=== PATIENT | female | born 1930 | race Caucasian/White ===

== ENCOUNTER 2017-03-18 21:05 | Inpatient (IN) | payer OTHER ==
--- NOTE | 2017-03-18 21:22 | PDOC ---
Attending Attestation - Resident Resident Name: Fredy Ruff
[2017-03-18 21:26] VITALS: BMI 20.7
--- NOTE | 2017-03-18 22:19 | PDOC ---
History of Present Illness - General Chief Complaint: Injury Stated Complaint: FALL Time Seen by Provider: 03/18/17 21:13 - History of Present Illness Initial Comments: 03/18/17 22:14 86F w/ hx of b/l hip and knee replacements and polyarthritis presenting after fall. Pt reports that she fell down using her rollader to walk from her bed to bathroom. She denies any dizziness, SOB, nausea, or LOC before or after fall. She states that she hit the back of her head and right knee, and reports severe pain when flexing the right leg preventing her from walking. 03/18/17 22:24 Past History - Past Medical History Allergies/Adverse Reactions: Allergies Allergy/AdvReac Type Severity Reaction Status Date / Time No Known Allergies Allergy Verified 03/18/17 21:26 Home Medications: Ambulatory Orders Calcium Polycarbophil [Fibercon] 625 mg PO BID 01/21/14 Gabapentin [Neurontin -] 400 mg PO Q8H 01/21/14 Gluc HCl/Csana/Gly-Am-Gly,Mx/C [Cosamin Ds Capsule] 1 each PO BID 01/21/14 Modafinil [Provigil] 200 mg PO BID 01/21/14 Sennosides [Senna -] 1 mg PO HS 01/21/14 Simethicone [Gas Relief] 80 mg PO QID 01/21/14 Metaxalone 1 tab PO BID 06/21/14 Hydromorphone [Dilaudid -] 1 tab PO BID PRN 07/16/16 Amlodipine Besylate 2.5 mg PO DAILY 09/24/16 Celebrex 100 mg PO BID 11/12/16 Vitamin C 500 mg PO DAILY 11/12/16 Vitamin D3 - 1 tab PO DAILY 11/12/16 Zofran 4 mg PO TID PRN 11/12/16 Acidoph/L.bulg/Bif.b/S.thermop [Yajaira-Bid Caplet] 1 cap PO BID 12/24/16 Anemia: No Asthma: No Cancer: No Cardiac Disorders: No CVA: No COPD: No CHF: No Dementia: No Diabetes: No GI Disorders: No Disorders: No HTN: Yes Hypercholesterolemia: No Liver Disease: No Seizures: No Thyroid Disease: No Comment:: 03/18/17 22:18 PMH: hemochromatosis HTN arthritis constipation 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 PSH: cholecystectomy b/l knee and hip replacements PUD vagectomy melanoma in-situ excision Allergies: NKDA Fam Hx: hemochromatosis in older brother - Surgical History Abdominal Surgery: Yes (apendectomy 05/2014) Appendectomy: No Cardiac Surgery: No Cholecystectomy: No Lung Surgery: No Neurologic Surgery: No Orthopedic Surgery: Yes (right hip replacement ./ rt knee replacement) - Immunization History Immunization Up to Date: Yes - Psycho/Social/Smoking Cessation Hx Suicidal Ideation: No Smoking History: Never smoked Have you smoked in the past 12 months: No Review of Systems - Review of Systems Comments:: 03/18/17 22:19 GENERAL: No fever, chills, night sweats HEAD, EYES, EARS, NOSE AND THROAT: No change in vision, ear pain, or sore throat CARDIOVASCULAR: No chest pain or palpitations RESPIRATORY: No cough, wheezing, or hemoptysis. GASTROINTESTINAL: No nausea, vomiting, diarrhea, constipation, or blood in the stool. GENITOURINARY: No dysuria, frequency, or urgency MUSCULOSKELETAL: + joint swelling and pain. SKIN: wet growth on right lateral ankle bandaged up ENDOCRINE: No increased thirst. No abnormal weight change NEUROLOGIC: No dizziness,no loss of consciousness *Physical Exam - Vital Signs Last Vital Signs Temp Pulse Resp BP Pulse Ox 97.8 F 75 20 151/87 96 03/18/17 21:24 03/18/17 21:24 03/18/17 21:24 03/18/17 21:24 03/18/17 21:24 - Physical Exam Comments: 03/18/17 22:22 GENERAL: Awake, alert, and fully oriented, in no acute distress HEAD: swelling on posterior head HEENT: PERRLA, EOMI, NECK: Normal ROM, supple, no lymphadenopathy, JVD, or masses HEART: Regular rate and rhythm, normal S1 and S2, no murmurs, rubs or gallops, peripheral pulses normal and equal bilaterally. LUNGS: CTAB, no wheezing, no rales ABDOMEN: Soft, nontender, nondistended, normoactive bowel sounds. No guarding, no rebound. No masses EXTREMITIES: right knee appears swollen compared to left, very tender to touch mostly on lateral side, unable to flex without severe pain. R elbow has minor abrasion. NEUROLOGICAL: Cranial nerves II through XII grossly intact. Normal speech, no focal sensorimotor deficits 03/18/17 22:26 ED Treatment Course - LABORATORY CBC & Chemistry Diagram: 03/18/17 21:59 03/18/17 21:59 - RADIOLOGY Radiology Studies Ordered: Category Date Time Status HEAD CT WITHOUT CONTRAST [CT] Stat CT Scan 03/18/17 21:55 Ordered KNEE 4 POS-RIGHT [RAD] Stat Radiology 03/18/17 21:54 Taken Medical Decision Making - Medical Decision Making 03/18/17 22:24 86F w/ hx of b/l hip and knee replacements and polyarthritis presenting after falling on head and right knee. Likely due to instability of joints. r/o cardiac causes of fall, intracranial bleeding, and right knee fracture. -head CT: shows a small hyperdensity suspicious for acute hemorrhage. -right knee XR: can't rule out fracture, so ordered knee CT -CBC: wnl -ferritin -CMP: wnl -EKG: normal sinus rhythm -CT Knee: showed distal femoral condyle fracture and hemarthrosis -spoke to Dr. Louis, will admit to monitor floor. -consult orthopedic surgery for knee fracture -touched base with neurosurgery who will see pt in morning 03/18/17 23:38 03/19/17 02:06 *DC/Admit/Observation/Transfer Diagnosis at time of Disposition: Knee fracture, right - Discharge Dispostion Condition at time of disposition: Stable Admit: Yes Decision to Admit order Date/Time: 03/19/17 02:12
[2017-03-18 22:32] LABS: BASOPHIL 0.7 % (0-2.0); EOSINOPHIL 2.2 % (0-4.5); MCH 33.9 pg (25.7-33.7); MCHC 33.8 g/dl (32.0-36.0); MEAN CELL VOLUME 100.1 fl (80-96); MEAN PLT VOLUME 8.5 fl (7.5-11.1); NEUTROPHILS 73.9 % (42.8-82.8); PLATELET COUNT 229 K/MM3 (134-434); RDW 12.3 % (11.6-15.6); WHITE BLOOD COUNT 9.9 K/mm3 (4.0-10.0)
[2017-03-18 22:45] LABS: INR 0.98 (0.82-1.09); PROTHROMBIN TIME (PATIENT) 10.8 SEC (9.98-11.88)
[2017-03-18 22:56] LABS: ALBUMIN 3.6 g/dl (3.4-5.0); ALK PHOS 62 U/L (45-117); ANION GAP 6 (8-16); BILIRUBIN,TOTAL 0.2 mg/dL (0.2-1.0); CALCIUM 8.9 mg/dL (8.5-10.1); CO2 29 mmol/L (21-32); CPK 42 IU/L (26-192); CREATININE 0.7 mg/dL (0.55-1.02); GLUCOSE,RANDOM 97 mg/dL (74-106); SGOT/AST 21 U/L (15-37); SGPT/ALT 22 U/L (12-78); TOT PROT 6.8 g/dl (6.4-8.2)
[2017-03-18 22:58] LABS: TROPONIN I < 0.02 ng/ml (0.00-0.05)
[2017-03-19] MEDS ORDERED: ACETAMINOPHEN 1000 MG/100 ML VIAL (NON FORMULARY) IVPB PRN (00:09)
[2017-03-19] MEDS ORDERED: ACETAMINOPHEN INJECTION 100 ML IVPB ONE (00:17)
[2017-03-19] MEDS ORDERED: morphine CARPU-JECT 2 MG/1 ML DISP.SYRIN IVPUSH ONE ×2 (01:13→02:01)
[2017-03-19] MEDS ORDERED: ONDANSETRON 4 MG/2 ML VIAL IVPUSH ONE (01:14)
[2017-03-19] MEDS ORDERED: morphine CARPU-JECT 4 MG/1 ML DISP.SYRIN ONE ×2 (01:18→02:11)
[2017-03-19] MEDS ORDERED: ONDANSETRON 4 MG/2 ML VIAL ONE (01:18)
[2017-03-19] MEDS ORDERED: HYDROmorphone HCL CARPU-JECT 2 MG/1 ML DISP.SYRIN IVPUSH PRN (06:31)
[2017-03-19] MEDS ORDERED: ONDANSETRON 4 MG/2 ML VIAL IVPB PRN (06:41)
--- NOTE | 2017-03-19 11:33 | CON.ORTH ---
Consult Reason for Consultation:: right distal femur fx- s/p tkr - Past Medical History ...: No - Alcohol/Substance Use Hx Alcohol Use: No - Smoking History Smoking history: Never smoked Have you smoked in the past 12 months: No Home Medications - Allergies Allergies/Adverse Reactions: Allergies Allergy/AdvReac Type Severity Reaction Status Date / Time No Known Allergies Allergy Verified 03/18/17 21:26 - Home Medications Home Medications: Ambulatory Orders Calcium Polycarbophil [Fibercon] 625 mg PO BID 01/21/14 Gabapentin [Neurontin -] 400 mg PO Q8H 01/21/14 Gluc HCl/Csana/Gly-Am-Gly,Mx/C [Cosamin Ds Capsule] 1 each PO BID 01/21/14 Modafinil [Provigil] 200 mg PO BID 01/21/14 Sennosides [Senna -] 1 mg PO HS 01/21/14 Simethicone [Gas Relief] 80 mg PO QID 01/21/14 Metaxalone 1 tab PO BID 06/21/14 Hydromorphone [Dilaudid -] 1 tab PO BID PRN 07/16/16 Amlodipine Besylate 2.5 mg PO DAILY 09/24/16 Celebrex 100 mg PO BID 11/12/16 Vitamin C 500 mg PO DAILY 11/12/16 Vitamin D3 - 1 tab PO DAILY 11/12/16 Zofran 4 mg PO TID PRN 11/12/16 Acidoph/L.bulg/Bif.b/S.thermop [Yajaira-Bid Caplet] 1 cap PO BID 12/24/16 Physical Exam for Ortho Vital Signs: Vital Signs Temperature 97.9 F 03/19/17 06:16 Pulse Rate 70 03/19/17 06:16 Respiratory Rate 18 03/19/17 10:00 Blood Pressure 119/57 03/19/17 06:16 O2 Sat by Pulse Oximetry (%) 95 03/19/17 10:00 Labs: INR, PTT INR 0.98 (0.82-1.09) 03/18/17 21:59 - Lower Extremity Knee: Yes: Right, Limited ROM, Pain, Swelling, Tenderness, Other (nvi) Imaging - Results X-ray: Report Reviewed, Image Reviewed Cat Scan: Report Reviewed, Image Reviewed Assessment/Plan 86F w/ hx of b/l hip and knee replacements s/p fall yesterday. Pt reports that she fell down using her rollader to walk from her bed to bathroom. She denies any dizziness, SOB, nausea, or LOC before or after fall. h/o right tkr [address] Kaplan. a/p- right nondisplaced periprosthetic distal femur fx Risks and benefits were d/w pt in detail No surgical intervention at the present time Knee immobilizer at all times- please check for skin breakdown daily as pt has h /o non-healing ulcers NWB right LE dvt ppx pain control will follow d/w DR. Zarate
--- NOTE | 2017-03-19 12:49 | HP ---
Admitting History and Physical - Primary Care Physician PCP: Tiburcio Zaragoza - Admission Chief Complaint: Right knee pain. Fall, head trauma History of Present Illness: Pt is a resident of [facility], walking in her room yesterday with walker, turned and lost her footing and fell; she hit her head. Pt was c/o of significant pain in her right knee, not able to stand or walk. Pt was sent to ER where was found to ICB and fracture of the right knee. Pt was admitted to monitor bed. History Source: Patient - Past Medical History [employer]: Yes: CVA ...: No Dermatology: Yes: Other (right and left leg ulcers) - Advance Directives Advance Directives: Yes: Health Care Proxy, DNR, MOLST - Smoking History Smoking history: Never smoked Have you smoked in the past 12 months: No - Alcohol/Substance Use Hx Alcohol Use: No Home Medications - Allergies Allergies/Adverse Reactions: Allergies Allergy/AdvReac Type Severity Reaction Status Date / Time No Known Allergies Allergy Verified 03/18/17 21:26 - Home Medications Home Medications: Ambulatory Orders Calcium Polycarbophil [Fibercon] 625 mg PO BID 01/21/14 Gabapentin [Neurontin -] 400 mg PO Q8H 01/21/14 Gluc HCl/Csana/Gly-Am-Gly,Mx/C [Cosamin Ds Capsule] 1 each PO BID 01/21/14 Modafinil [Provigil] 200 mg PO BID 01/21/14 Sennosides [Senna -] 1 mg PO HS 01/21/14 Simethicone [Gas Relief] 80 mg PO QID 01/21/14 Metaxalone 1 tab PO BID 06/21/14 Hydromorphone [Dilaudid -] 1 tab PO BID PRN 07/16/16 Amlodipine Besylate 2.5 mg PO DAILY 09/24/16 Celebrex 100 mg PO BID 11/12/16 Vitamin C 500 mg PO DAILY 11/12/16 Vitamin D3 - 1 tab PO DAILY 11/12/16 Zofran 4 mg PO TID PRN 11/12/16 Acidoph/L.bulg/Bif.b/S.thermop [Yajaira-Bid Caplet] 1 cap PO BID 12/24/16 Review of Systems - Review of Systems Constitutional: denies: Chills, Fever Eyes: denies: Blurred Vision, Double Vision HENT: denies: Difficult Swallowing, Epistaxis, Hearing Loss, Throat Pain Neck: denies: Pain on Movement, Stiffness Cardiovascular: denies: Chest Pain, Edema, Palpitations Respiratory: denies: Cough, SOB, Wheezing Gastrointestinal: denies: Abdominal Pain, Constipation, Diarrhea Genitourinary: denies: Burning, Discharge, Frequency Musculoskeletal: reports: Other (right knee pain bilat shoulder pain (old)). denies: Back Pain Neurological: denies: Change in LOC, Change in Speech, Confusion, Dizziness, Headache, Weakness Endocrine: denies: Excessive Sweating, Intolerance to Cold Hematology/Lymphatic: denies: Easily Bruised, Excessive Bleeding Psychiatric: denies: Anxiety, Depression Physical Examination Vital Signs: Vital Signs Temperature 97.9 F 03/19/17 06:16 Pulse Rate 70 03/19/17 06:16 Respiratory Rate 18 03/19/17 10:00 Blood Pressure 119/57 03/19/17 06:16 O2 Sat by Pulse Oximetry (%) 95 03/19/17 10:00 Constitutional: Yes: No Distress, Calm Eyes: Yes: Conjunctiva Clear, PERRL HENT: Yes: Normocephalic. No: Epistaxis, Rhinnorhea Neck: Yes: Trachea Midline. No: Lymphadenopathy Cardiovascular: Yes: Regular Rate and Rhythm, S1, S2 Respiratory: Yes: Regular, CTA Bilaterally. No: Rales Gastrointestinal: Yes: Normal Bowel Sounds, Soft. No: Palpable Mass, Tenderness ...Rectal Exam: Yes: Deferred Renal/: No: CVA Tenderness - Left, CVA Tenderness - Right Breast(s): Yes: Other (deferred) Musculoskeletal: Yes: Other (right knee swallon, with) Edema: No Neurological: Yes: Alert, Oriented, Cran Nerves II-XII Intact Labs: reviewed Imaging - Results Cat Scan: Report Reviewed Problem List - Problems (1) Knee fracture, right Code(s): [id number] - (2) ICB (intracranial bleed) Code(s): I62.9 - NONTRAUMATIC INTRACRANIAL HEMORRHAGE, UNSPECIFIED (3) CVA (cerebral vascular accident) Code(s): I63.9 - CEREBRAL INFARCTION, UNSPECIFIED (4) Bilateral leg ulcer Code(s): L97.919 - NON-PRS CHRONIC ULC UNSP PRT OF R LOW LEG W UNSP SEVERITY L97.929 - NON-PRS CHRONIC ULC UNSP PRT OF L LOW LEG W UNSP SEVERITY Assessment/Plan Neuro SX consult Ortho consult NPO untill clear by surgeons IVF Repeate labs Repeate Head CT scan
[2017-03-19] MEDS: SODIUM CHLORIDE 1,000 ML IV SCH ×2 (13:30→21:00)
[2017-03-19] MEDS: HYDROmorphone HCL CARPU-JECT 2 MG/1 ML DISP.SYRIN IVPUSH PRN ×2 (14:24→21:48)
[2017-03-19 14:44] LABS: MCH 33.5 pg (25.7-33.7); MCHC 33.5 g/dl (32.0-36.0); MEAN CELL VOLUME 100.2 fl (80-96); MEAN PLT VOLUME 7.9 fl (7.5-11.1); PLATELET COUNT 171 K/MM3 (134-434); RDW 11.9 % (11.6-15.6); WHITE BLOOD COUNT 7.7 K/mm3 (4.0-10.0)
--- NOTE | 2017-03-19 14:55 | CONSULT ---
Consult - text type - Consultation Consultation Note: Asked to see this 86 year old female who had a fall yesterday [facility]. Patient struck her head. Aside from Orthopaedic injury to Right lower extremity, patient is at her Neurological baseline and was bright and alert upon my examination. Head CT with focal hyperdenisity in the region of the Right Caudate head. Repeat CT does not demonstrate significant change/progression. At this point, I do not feel that any acute Neurosurgical intervention is indicated. Patient may resume normal diet and does not require additional imaging from Neurosurgery standpoint.
[2017-03-19 15:12] LABS: ALBUMIN 3.2 g/dl (3.4-5.0); ANION GAP 8 (8-16); BILIRUBIN,TOTAL 0.5 mg/dL (0.2-1.0); CALCIUM 8.4 mg/dL (8.5-10.1); CO2 31 mmol/L (21-32); CREATININE 0.6 mg/dL (0.55-1.02); GLUCOSE,RANDOM 100 mg/dL (74-106); SGOT/AST 19 U/L (15-37); SGPT/ALT 17 U/L (12-78); TOT PROT 6.2 g/dl (6.4-8.2)
[2017-03-19 15:13] LABS: ALK PHOS 69 U/L (45-117)
[2017-03-19] MEDS: amLODIPine BESYLATE 2.5 MG TABLET (FP) PO SCH (15:24)
[2017-03-19] MEDS: SIMETHICONE 80 MG TAB.CHEW (FP) PO SCH ×4 (15:24→21:51)
[2017-03-19] MEDS: GABAPENTIN 400 MG CAPSULE (FP) PO SCH ×2 (15:24→21:51)
[2017-03-19] MEDS: GENTAMICIN SO4 0.1% TOP CREAM 15 GM/TUBE TP SCH (17:23)
[2017-03-19] MEDS: BACITRACIN 15 GM TUBE TOPICAL OINTMENT TP SCH (17:24)
[2017-03-19] MEDS: SENNOSIDES 8.6MG TABLET (FP) PO SCH (21:51)
[2017-03-19] MEDS: CELECOXIB 100 MG CAPSULE PO SCH (21:51)
[2017-03-19] MEDS ORDERED: METAXALONE PO SCH (22:00)
[2017-03-19] MEDS ORDERED: CALCIUM POLYCARBOPHIL 625 MG PO SCH (22:00)
[2017-03-19] MEDS ORDERED: MODAFINIL 200 MG PO SCH (22:00)
[2017-03-19] MEDS ORDERED: ACETAMINOPHEN 325 MG TABLET (FP) PO PRN (22:00)
[2017-03-20] MEDS: GABAPENTIN 400 MG CAPSULE (FP) PO SCH ×3 (06:16→21:42)
[2017-03-20] MEDS: HYDROmorphone HCL CARPU-JECT 2 MG/1 ML DISP.SYRIN IVPUSH PRN ×3 (06:16→18:37)
[2017-03-20 06:31] LABS: MCH 33.8 pg (25.7-33.7); MCHC 33.3 g/dl (32.0-36.0); MEAN CELL VOLUME 101.5 fl (80-96); MEAN PLT VOLUME 8.4 fl (7.5-11.1); PLATELET COUNT 165 K/MM3 (134-434); RDW 11.9 % (11.6-15.6); WHITE BLOOD COUNT 8.3 K/mm3 (4.0-10.0)
[2017-03-20 07:19] LABS: ALBUMIN 2.7 g/dl (3.4-5.0); ALK PHOS 56 U/L (45-117); ANION GAP 7 (8-16); BILIRUBIN,TOTAL 0.5 mg/dL (0.2-1.0); CALCIUM 8.1 mg/dL (8.5-10.1); CO2 28 mmol/L (21-32); CREATININE 0.7 mg/dL (0.55-1.02); GLUCOSE,RANDOM 86 mg/dL (74-106); SGOT/AST 15 U/L (15-37); SGPT/ALT 15 U/L (12-78); TOT PROT 5.2 g/dl (6.4-8.2)
--- NOTE | 2017-03-20 08:18 | EKG ---
Test Reason : Blood Pressure : / mmHG Vent. Rate : 069 BPM Atrial Rate : 069 BPM P-R Int : 136 ms QRS Dur : 094 ms QT Int : 394 ms P-R-T Axes : 023 -29 030 degrees QTc Int : 422 ms NORMAL SINUS RHYTHM VOLTAGE CRITERIA FOR LEFT VENTRICULAR HYPERTROPHY ABNORMAL ECG NO PREVIOUS ECGS AVAILABLE Confirmed by JANA SILVA MD ([id number]) on 03/20/2017 8:18:26 AM Referred By: Confirmed By:JANA SILVA MD
[2017-03-20] MEDS: ASCORBIC ACID 500 MG TABLET (FP) PO SCH (10:47)
[2017-03-20] MEDS: amLODIPine BESYLATE 2.5 MG TABLET (FP) PO SCH (10:47)
[2017-03-20] MEDS: CELECOXIB 100 MG CAPSULE PO SCH ×2 (10:47→21:43)
[2017-03-20] MEDS: SIMETHICONE 80 MG TAB.CHEW (FP) PO SCH ×4 (10:47→21:42)
--- NOTE | 2017-03-20 13:27 | PN ---
Progress Note, Physician History of Present Illness: Pt w/o motor or sensory deficit in UE/ LE/ face. Pt w/o fever, chills, SOB, cough, abd pain, N, V, Diarrhea, sore throat - Current Medication List Current Medications: Active Medications Acetaminophen (Tylenol -) 650 mg PO Q6H PRN PRN Reason: FEVER OR PAIN Last Admin: 03/19/17 22:04 Dose: 650 mg Amlodipine Besylate (Norvasc -) 2.5 mg PO DAILY [facility] Last Admin: 03/20/17 10:47 Dose: 2.5 mg Ascorbic Acid (Vitamin C -) 500 mg PO DAILY [facility] Last Admin: 03/20/17 10:47 Dose: 500 mg Bacitracin (Bacitracin -) 1 applic TP DAILY [facility] Last Admin: 03/19/17 17:24 Dose: 1 applic Celecoxib (Celebrex -) 100 mg PO BID [facility] Last Admin: 03/20/17 10:47 Dose: 100 mg Gabapentin (Neurontin -) 400 mg PO Q8H [facility] Last Admin: 03/20/17 06:16 Dose: 400 mg Gentamicin Sulfate (Garamycin 0.1% Cream -) 1 applic TP DAILY [facility] Last Admin: 03/19/17 17:23 Dose: 1 applic Hydromorphone HCl (Dilaudid Injection -) 4 mg IVPUSH Q6H PRN PRN Reason: PAIN Last Admin: 03/20/17 12:22 Dose: 4 mg Sodium Chloride (Normal Saline -) 1,000 mls @ 100 mls/hr IV ASDIR [facility] Last Admin: 03/19/17 21:00 Dose: 100 mls/hr Ondansetron HCl (Zofran Injection) 4 mg IVPB Q8H PRN PRN Reason: NAUSEA AND/OR VOMITING Senna (Senna -) 2 tab PO HS [facility] Last Admin: 03/19/17 21:51 Dose: 2 tab Simethicone (Mylicon -) 80 mg PO QID [facility] Last Admin: 03/20/17 10:47 Dose: 80 mg - Objective Vital Signs: Vital Signs Temperature 98.1 F 03/20/17 10:00 Pulse Rate 68 03/20/17 10:00 Respiratory Rate 18 03/20/17 10:00 Blood Pressure 102/53 03/20/17 10:00 O2 Sat by Pulse Oximetry (%) 97 03/20/17 10:00 Constitutional: Yes: No Distress, Calm Cardiovascular: Yes: Regular Rate and Rhythm, S1, S2 Respiratory: Yes: Regular, CTA Bilaterally. No: Rales Gastrointestinal: Yes: Normal Bowel Sounds, Soft. No: Palpable Mass, Tenderness Edema: No Integumentary: Yes: Rash Neurological: Yes: Alert, Oriented Labs: CBC, BMP 03/20/17 05:15 03/20/17 05:15 INR, PTT INR 0.98 (0.82-1.09) 03/18/17 21:59 Problem List - Problems (1) Knee fracture, right Code(s): [id number] - (2) ICB (intracranial bleed) Code(s): I62.9 - NONTRAUMATIC INTRACRANIAL HEMORRHAGE, UNSPECIFIED (3) CVA (cerebral vascular accident) Code(s): I63.9 - CEREBRAL INFARCTION, UNSPECIFIED (4) Bilateral leg ulcer Code(s): L97.919 - NON-PRS CHRONIC ULC UNSP PRT OF R LOW LEG W UNSP SEVERITY L97.929 - NON-PRS CHRONIC ULC UNSP PRT OF L LOW LEG W UNSP SEVERITY Assessment/Plan Neuro SX consult appreciated (for ICB medical treatment) Ortho consult appreciated (conservative management) Repeate labs PT Monitor BCX
[2017-03-20] MEDS: SODIUM CHLORIDE 1,000 ML IV SCH (14:39)
[2017-03-20] MEDS: GENTAMICIN SO4 0.1% TOP CREAM 15 GM/TUBE TP SCH (14:39)
[2017-03-20] MEDS: BACITRACIN 15 GM TUBE TOPICAL OINTMENT TP SCH (14:39)
[2017-03-20] MEDS: SENNOSIDES 8.6MG TABLET (FP) PO SCH (21:42)
[2017-03-21] MEDS: HYDROmorphone HCL CARPU-JECT 2 MG/1 ML DISP.SYRIN IVPUSH PRN (01:06)
[2017-03-21] MEDS: GABAPENTIN 400 MG CAPSULE (FP) PO SCH ×3 (06:10→21:29)
[2017-03-21 06:45] LABS: MCHC 33.4 g/dl (32.0-36.0); MEAN CELL VOLUME 101.9 fl (80-96); MEAN PLT VOLUME 8.6 fl (7.5-11.1); PLATELET COUNT 159 K/MM3 (134-434); RDW 12.3 % (11.6-15.6)
[2017-03-21 07:00] LABS: ANION GAP 7 (8-16); CALCIUM 7.7 mg/dL (8.5-10.1); CO2 25 mmol/L (21-32); CREATININE 0.6 mg/dL (0.55-1.02); GLUCOSE,RANDOM 88 mg/dL (74-106)
--- NOTE | 2017-03-21 07:18 | PN ---
Progress Note (short form) - Note Progress Note: Ortho Pt seen and examined s/p right nondisplaced MFC fx knee immobilizer intact, no signs of skin breakdown, decr swelling, decr ttp calf soft, nt, nvi a/p keep immobilizer in place please check for skin breakdown NWB dvt ppx pain control d/w Dr. Zarate
[2017-03-21] MEDS: GENTAMICIN SO4 0.1% TOP CREAM 15 GM/TUBE TP SCH (10:37)
[2017-03-21] MEDS: amLODIPine BESYLATE 2.5 MG TABLET (FP) PO SCH (10:37)
[2017-03-21] MEDS: SIMETHICONE 80 MG TAB.CHEW (FP) PO SCH ×4 (10:37→21:29)
[2017-03-21] MEDS: BACITRACIN 15 GM TUBE TOPICAL OINTMENT TP SCH (10:37)
[2017-03-21] MEDS: ASCORBIC ACID 500 MG TABLET (FP) PO SCH (10:37)
[2017-03-21] MEDS: CELECOXIB 100 MG CAPSULE PO SCH ×2 (10:38→21:29)
[2017-03-21] MEDS: SODIUM CHLORIDE 1,000 ML IV SCH (13:11)
[2017-03-21] MEDS: HEPARIN NA (PORCINE) 5,000 UNITS/ML 1ML VIAL SQ SCH (13:14)
[2017-03-21 18:46] LABS: BASOPHIL 0.5 % (0-2.0); EOSINOPHIL 1.8 % (0-4.5); MCH 34.3 pg (25.7-33.7); MCHC 33.8 g/dl (32.0-36.0); MEAN CELL VOLUME 101.5 fl (80-96); MEAN PLT VOLUME 8.7 fl (7.5-11.1); PLATELET COUNT 160 K/MM3 (134-434); RDW 12.2 % (11.6-15.6); WHITE BLOOD COUNT 9.5 K/mm3 (4.0-10.0)
--- NOTE | 2017-03-21 19:24 | CONSULT ---
Consult - Past Medical History [employer]: Yes: CVA ...: No Dermatology: Yes: Other (right and left leg ulcers) - Alcohol/Substance Use Hx Alcohol Use: No - Smoking History Smoking history: Never smoked Have you smoked in the past 12 months: No Home Medications - Allergies Allergies/Adverse Reactions: Allergies Allergy/AdvReac Type Severity Reaction Status Date / Time No Known Allergies Allergy Verified 03/18/17 21:26 - Home Medications Home Medications: Ambulatory Orders Calcium Polycarbophil [Fibercon] 625 mg PO BID 01/21/14 Gabapentin [Neurontin -] 400 mg PO Q8H 01/21/14 Gluc HCl/Csana/Gly-Am-Gly,Mx/C [Cosamin Ds Capsule] 1 each PO BID 01/21/14 Modafinil [Provigil] 200 mg PO BID 01/21/14 Sennosides [Senna -] 1 mg PO HS 01/21/14 Simethicone [Gas Relief] 80 mg PO QID 01/21/14 Metaxalone 1 tab PO BID 06/21/14 Hydromorphone [Dilaudid -] 1 tab PO BID PRN 07/16/16 Amlodipine Besylate 2.5 mg PO DAILY 09/24/16 Celebrex 100 mg PO BID 11/12/16 Vitamin C 500 mg PO DAILY 11/12/16 Vitamin D3 - 1 tab PO DAILY 11/12/16 Zofran 4 mg PO TID PRN 11/12/16 Acidoph/L.bulg/Bif.b/S.thermop [Yajaira-Bid Caplet] 1 cap PO BID 12/24/16 Physical Exam Vital Signs: Vital Signs Temperature 99.5 F 03/21/17 18:00 Pulse Rate 95 H 03/21/17 18:00 Respiratory Rate 18 03/21/17 18:00 Blood Pressure 127/54 03/21/17 18:00 O2 Sat by Pulse Oximetry (%) 100 03/21/17 10:26 Labs: CBC, BMP 03/21/17 18:00 03/21/17 05:15 Assessment/Plan VAscular Surgery 86F w/ hx of b/l hip and knee replacements and polyarthritis presenting after fall. Pt reports that she fell down using her rollader to walk from her bed to bathroom. She denies any dizziness, SOB, nausea, or LOC before or after fall. She states that she hit the back of her head and right knee, and reports severe pain when flexing the right leg preventing her from walking. 03/18/17 22:24 Past History - Past Medical History Allergies/Adverse Reactions: Allergies Allergy/AdvReac Type Severity Reaction Status Date / Time No Known Allergies Allergy Verified 03/18/17 21:26 Home Medications: Ambulatory Orders Calcium Polycarbophil [Fibercon] 625 mg PO BID 01/21/14 Gabapentin [Neurontin -] 400 mg PO Q8H 01/21/14 Gluc HCl/Csana/Gly-Am-Gly,Mx/C [Cosamin Ds Capsule] 1 each PO BID 01/21/14 Modafinil [Provigil] 200 mg PO BID 01/21/14 Sennosides [Senna -] 1 mg PO HS 01/21/14 Simethicone [Gas Relief] 80 mg PO QID 01/21/14 Metaxalone 1 tab PO BID 06/21/14 Hydromorphone [Dilaudid -] 1 tab PO BID PRN 07/16/16 Amlodipine Besylate 2.5 mg PO DAILY 09/24/16 Celebrex 100 mg PO BID 11/12/16 Vitamin C 500 mg PO DAILY 11/12/16 Vitamin D3 - 1 tab PO DAILY 11/12/16 Zofran 4 mg PO TID PRN 11/12/16 Acidoph/L.bulg/Bif.b/S.thermop [Yajaira-Bid Caplet] 1 cap PO BID 12/24/16 PE Head - NC/At Lung - CTA Heart - RRR abd - soft,nt,nd ext - left leg wound clean, pink, granulation. Wound on left leg -- recently diagnosed by dermatology to be skin cancer and needs to be removed as per pt. A/P Left lower ext wound . 1. gentamycin daily to wound. 2. Wound on left leg- found to be skin cancer. Needs to be removed by derm. Palmer Tracy DO
[2017-03-21] MEDS: SENNOSIDES 8.6MG TABLET (FP) PO SCH (21:45)
--- NOTE | 2017-03-21 23:30 | PN ---
Progress Note, Physician History of Present Illness: Pt w/o motor or sensory deficit in UE/ LE/ face. Pt w/o fever, chills, sore throat, SOB, cough, abd pain, N, V, dysuria Pt with diarrhea - Current Medication List Current Medications: Active Medications Acetaminophen (Tylenol -) 650 mg PO Q6H PRN PRN Reason: FEVER OR PAIN Last Admin: 03/19/17 22:04 Dose: 650 mg Amlodipine Besylate (Norvasc -) 2.5 mg PO DAILY ON LICENSE OF [facility] Last Admin: 03/21/17 10:37 Dose: 2.5 mg Ascorbic Acid (Vitamin C -) 500 mg PO DAILY ON [facility] OF [facility] Last Admin: 03/21/17 10:37 Dose: 500 mg Bacitracin (Bacitracin -) 1 applic TP DAILY ON [facility] Last Admin: 03/21/17 10:37 Dose: 1 applic Celecoxib (Celebrex -) 100 mg PO BID ON [facility] OF [facility] Last Admin: 03/21/17 21:29 Dose: 100 mg Gabapentin (Neurontin -) 400 mg PO Q8H ON [facility] OF [facility] Last Admin: 03/21/17 21:29 Dose: 400 mg Gentamicin Sulfate (Garamycin 0.1% Cream -) 1 applic TP DAILY [facility] Last Admin: 03/21/17 10:37 Dose: 1 applic Heparin Sodium (Porcine) (Heparin -) 5,000 unit SQ BID ON [facility] OF [facility] Last Admin: 03/21/17 13:14 Dose: 5,000 unit Hydromorphone HCl (Dilaudid Injection -) 2 mg IVPUSH Q4H PRN PRN Reason: PAIN Last Admin: 03/21/17 01:06 Dose: 2 mg Sodium Chloride (Normal Saline -) 1,000 mls @ 100 mls/hr IV ASDIR ON [facility] OF [facility] Last Admin: 03/21/17 13:11 Dose: 100 mls/hr Ondansetron HCl (Zofran Injection) 4 mg IVPB Q8H PRN PRN Reason: NAUSEA AND/OR VOMITING Senna (Senna -) 2 tab PO HS ON [facility] OF [facility] Last Admin: 03/21/17 21:45 Dose: Not Given Simethicone (Mylicon -) 80 mg PO QID ON [facility] OF [facility] Last Admin: 03/21/17 21:29 Dose: 80 mg - Objective Vital Signs: Vital Signs Temperature 99.5 F 03/21/17 18:00 Pulse Rate 95 H 03/21/17 18:00 Respiratory Rate 18 03/21/17 18:00 Blood Pressure 127/54 03/21/17 18:00 O2 Sat by Pulse Oximetry (%) 100 03/21/17 10:26 Constitutional: Yes: No Distress, Calm Cardiovascular: Yes: Regular Rate and Rhythm, S1, S2 Respiratory: Yes: Regular, CTA Bilaterally, Rales Gastrointestinal: Yes: Normal Bowel Sounds, Soft Edema: No Neurological: Yes: Alert, Oriented Labs: CBC, BMP 03/21/17 18:00 03/21/17 05:15 INR, PTT INR 0.98 (0.82-1.09) 03/18/17 21:59 AM WBC of 12 Problem List - Problems (1) Knee fracture, right Code(s): [id number] - (2) ICB (intracranial bleed) Code(s): I62.9 - NONTRAUMATIC INTRACRANIAL HEMORRHAGE, UNSPECIFIED (3) CVA (cerebral vascular accident) Code(s): I63.9 - CEREBRAL INFARCTION, UNSPECIFIED (4) Bilateral leg ulcer Code(s): L97.919 - NON-PRS CHRONIC ULC UNSP PRT OF R LOW LEG W UNSP SEVERITY L97.929 - NON-PRS CHRONIC ULC UNSP PRT OF L LOW LEG W UNSP SEVERITY (5) Leukocytosis Code(s): D72.829 - ELEVATED WHITE BLOOD CELL COUNT, UNSPECIFIED (6) Diarrhea Code(s): R19.7 - DIARRHEA, UNSPECIFIED Assessment/Plan Neuro SX consult appreciated (for ICB medical treatment) Ortho consult appreciated (conservative management) Repeated CBC shows noraml WBC Send stool for C diff PT Monitor BCX
[2017-03-22] MEDS: GABAPENTIN 400 MG CAPSULE (FP) PO SCH ×3 (05:47→21:05)
[2017-03-22 06:35] LABS: MCH 34.2 pg (25.7-33.7); MEAN CELL VOLUME 100.3 fl (80-96); MEAN PLT VOLUME 8.7 fl (7.5-11.1); PLATELET COUNT 179 K/MM3 (134-434); RDW 11.9 % (11.6-15.6); WHITE BLOOD COUNT 8.9 K/mm3 (4.0-10.0)
[2017-03-22] MEDS: HYDROmorphone HCL CARPU-JECT 2 MG/1 ML DISP.SYRIN IVPUSH PRN ×3 (06:43→18:24)
--- NOTE | 2017-03-22 09:10 | PN ---
Progress Note (short form) - Note Progress Note: Ortho Pt seen and examined s/p right nondisplaced MFC fx knee immobilizer intact, no signs of skin breakdown, decr swelling, decr ttp calf soft, nt, nvi a/p keep immobilizer in place please check for skin breakdown PT eval NWB dvt ppx pain control d/w Dr. Beck
[2017-03-22] MEDS: SIMETHICONE 80 MG TAB.CHEW (FP) PO SCH ×4 (10:28→21:05)
[2017-03-22] MEDS: ASCORBIC ACID 500 MG TABLET (FP) PO SCH (10:28)
[2017-03-22] MEDS: amLODIPine BESYLATE 2.5 MG TABLET (FP) PO SCH (10:28)
[2017-03-22] MEDS: CELECOXIB 100 MG CAPSULE PO SCH ×2 (10:29→21:43)
[2017-03-22] MEDS: BACITRACIN 15 GM TUBE TOPICAL OINTMENT TP SCH (10:29)
[2017-03-22] MEDS: HEPARIN NA (PORCINE) 5,000 UNITS/ML 1ML VIAL SQ SCH ×2 (10:29→21:04)
[2017-03-22] MEDS: GENTAMICIN SO4 0.1% TOP CREAM 15 GM/TUBE TP SCH (11:00)
[2017-03-22] MEDS: SODIUM CHLORIDE 1,000 ML IV SCH (13:11)
[2017-03-22] MEDS ORDERED: PT OWN MED DRAWER 7, Y5N ONE (20:59)
[2017-03-22] MEDS: SENNOSIDES 8.6MG TABLET (FP) PO SCH (21:05)
--- NOTE | 2017-03-22 22:52 | PN ---
Progress Note, Physician History of Present Illness: Pt w/o motor or sensory deficit in UE/ LE/ face. Pt w/o fever, chills, sore throat, SOB, cough, abd pain, N, V, dysuria Pt w/o diarrhea - Current Medication List Current Medications: Active Medications Acetaminophen (Tylenol -) 650 mg PO Q6H PRN PRN Reason: FEVER OR PAIN Last Admin: 03/19/17 22:04 Dose: 650 mg Amlodipine Besylate (Norvasc -) 2.5 mg PO DAILY [facility] Last Admin: 03/22/17 10:28 Dose: 2.5 mg Ascorbic Acid (Vitamin C -) 500 mg PO DAILY [facility] Last Admin: 03/22/17 10:28 Dose: 500 mg Bacitracin (Bacitracin -) 1 applic TP DAILY [facility] Last Admin: 03/22/17 10:29 Dose: 1 applic Celecoxib (Celebrex -) 100 mg PO BID [facility] Last Admin: 03/22/17 21:43 Dose: 100 mg Gabapentin (Neurontin -) 400 mg PO Q8H [facility] Last Admin: 03/22/17 21:05 Dose: 400 mg Gentamicin Sulfate (Garamycin 0.1% Cream -) 1 applic TP DAILY [facility] Last Admin: 03/22/17 11:00 Dose: 1 applic Heparin Sodium (Porcine) (Heparin -) 5,000 unit SQ BID [facility] Last Admin: 03/22/17 21:04 Dose: 5,000 unit Hydromorphone HCl (Dilaudid Injection -) 2 mg IVPUSH Q3H PRN PRN Reason: PAIN Last Admin: 03/22/17 18:24 Dose: 2 mg Ondansetron HCl (Zofran Injection) 4 mg IVPB Q8H PRN PRN Reason: NAUSEA AND/OR VOMITING Senna (Senna -) 2 tab PO HS [facility] Last Admin: 03/22/17 21:05 Dose: 2 tab Simethicone (Mylicon -) 80 mg PO QID [facility] Last Admin: 03/22/17 21:05 Dose: 80 mg - Objective Vital Signs: Vital Signs Temperature 98.7 F 03/22/17 21:47 Pulse Rate 85 03/22/17 21:47 Respiratory Rate 18 03/22/17 21:47 Blood Pressure 151/68 03/22/17 21:47 O2 Sat by Pulse Oximetry (%) 95 03/22/17 09:00 Constitutional: Yes: No Distress, Calm Cardiovascular: Yes: Regular Rate and Rhythm, S1, S2 Respiratory: Yes: Regular, CTA Bilaterally. No: Rales Gastrointestinal: Yes: Normal Bowel Sounds, Soft. No: Tenderness Edema: No Labs: CBC, BMP 03/22/17 05:15 03/21/17 05:15 INR, PTT INR 0.98 (0.82-1.09) 03/18/17 21:59 Problem List - Problems (1) Knee fracture, right Code(s): IBG8069 - (2) ICB (intracranial bleed) Code(s): I62.9 - NONTRAUMATIC INTRACRANIAL HEMORRHAGE, UNSPECIFIED (3) CVA (cerebral vascular accident) Code(s): I63.9 - CEREBRAL INFARCTION, UNSPECIFIED (4) Bilateral leg ulcer Code(s): L97.919 - NON-PRS CHRONIC ULC UNSP PRT OF R LOW LEG W UNSP SEVERITY L97.929 - NON-PRS CHRONIC ULC UNSP PRT OF L LOW LEG W UNSP SEVERITY (5) Leukocytosis Code(s): D72.829 - ELEVATED WHITE BLOOD CELL COUNT, UNSPECIFIED (6) Diarrhea Code(s): R19.7 - DIARRHEA, UNSPECIFIED Assessment/Plan Neuro SX consult appreciated (recommended medical treatment); pt can start SQ Heparin for DVT prophylasis Ortho consult appreciated (conservative management) Pt with Leukocytosis yesterday, this AM WBC is w/i NL; to monitor PT evaluation reviewed Monitor BCX
[2017-03-23] MEDS: GABAPENTIN 400 MG CAPSULE (FP) PO SCH ×3 (05:46→21:30)
[2017-03-23 06:56] LABS: MCH 33.2 pg (25.7-33.7); MCHC 33.2 g/dl (32.0-36.0); MEAN CELL VOLUME 99.9 fl (80-96); MEAN PLT VOLUME 8.4 fl (7.5-11.1); PLATELET COUNT 220 K/MM3 (134-434); RDW 12.1 % (11.6-15.6)
[2017-03-23 07:26] LABS: ANION GAP 10 (8-16); CALCIUM 8.3 mg/dL (8.5-10.1); CO2 29 mmol/L (21-32); CREATININE 0.5 mg/dL (0.55-1.02); GLUCOSE,RANDOM 104 mg/dL (74-106)
[2017-03-23] MEDS ORDERED: PT OWN MED DRAWER 7, Y5N ONE ×2 (08:07→21:36)
[2017-03-23] MEDS: BACITRACIN 15 GM TUBE TOPICAL OINTMENT TP SCH (09:38)
[2017-03-23] MEDS: GENTAMICIN SO4 0.1% TOP CREAM 15 GM/TUBE TP SCH (09:39)
[2017-03-23] MEDS: HEPARIN NA (PORCINE) 5,000 UNITS/ML 1ML VIAL SQ SCH ×2 (09:40→21:31)
[2017-03-23] MEDS: ASCORBIC ACID 500 MG TABLET (FP) PO SCH (09:41)
[2017-03-23] MEDS: SIMETHICONE 80 MG TAB.CHEW (FP) PO SCH ×4 (09:41→21:30)
[2017-03-23] MEDS: amLODIPine BESYLATE 2.5 MG TABLET (FP) PO SCH (09:41)
[2017-03-23] MEDS ORDERED: POTASSIUM CHLORIDE ORAL LIQUID 20 MEQ/15 ML PO ONE (12:02)
--- NOTE | 2017-03-23 12:04 | PN ---
Progress Note, Physician History of Present Illness: Pt w/o motor or sensory deficit in UE/ LE/ face. Pt w/o fever, chills, sore throat, SOB, cough, abd pain, N, V, diarrhea, dysuria - Current Medication List Current Medications: Active Medications Acetaminophen (Tylenol -) 650 mg PO Q6H PRN PRN Reason: FEVER OR PAIN Last Admin: 03/19/17 22:04 Dose: 650 mg Amlodipine Besylate (Norvasc -) 2.5 mg PO DAILY [facility] Last Admin: 03/23/17 09:41 Dose: 2.5 mg Ascorbic Acid (Vitamin C -) 500 mg PO DAILY [facility] Last Admin: 03/23/17 09:41 Dose: 500 mg Bacitracin (Bacitracin -) 1 applic TP DAILY [facility] Last Admin: 03/23/17 09:38 Dose: 1 applic Celecoxib (Celebrex -) 100 mg PO BID [facility] Last Admin: 03/22/17 21:43 Dose: 100 mg Gabapentin (Neurontin -) 400 mg PO Q8H [facility] Last Admin: 03/23/17 05:46 Dose: 400 mg Gentamicin Sulfate (Garamycin 0.1% Cream -) 1 applic TP DAILY [facility] Last Admin: 03/23/17 09:39 Dose: 1 applic Heparin Sodium (Porcine) (Heparin -) 5,000 unit SQ BID [facility] Last Admin: 03/23/17 09:40 Dose: 5,000 unit Hydromorphone HCl (Dilaudid -) 2 mg PO Q4H [facility] Hydromorphone HCl (Dilaudid -) 2 mg PO Q4H PRN PRN Reason: PAIN Ondansetron HCl (Zofran Injection) 4 mg IVPB Q8H PRN PRN Reason: NAUSEA AND/OR VOMITING Potassium Chloride (Potassium Chloride Oral Liquid) 40 meq PO ONCE ONE Stop: 03/23/17 12:03 Senna (Senna -) 2 tab PO HS [facility] Last Admin: 03/22/17 21:05 Dose: 2 tab Simethicone (Mylicon -) 80 mg PO QID [facility] Last Admin: 03/23/17 09:41 Dose: 80 mg - Objective Vital Signs: Vital Signs Temperature 98.2 F 03/23/17 05:43 Pulse Rate 85 03/23/17 05:43 Respiratory Rate 16 03/23/17 05:43 Blood Pressure 170/87 03/23/17 05:43 O2 Sat by Pulse Oximetry (%) 95 03/22/17 21:00 Constitutional: Yes: No Distress, Calm Cardiovascular: Yes: Regular Rate and Rhythm, S1, S2 Respiratory: Yes: Regular, CTA Bilaterally, Rales Gastrointestinal: Yes: Normal Bowel Sounds, Soft. No: Tenderness Edema: No Neurological: Yes: Alert, Oriented Labs: CBC, BMP 03/23/17 05:20 03/23/17 05:20 INR, PTT INR 0.98 (0.82-1.09) 03/18/17 21:59 Problem List - Problems (1) Knee fracture, right Code(s): [id number] - (2) ICB (intracranial bleed) Code(s): I62.9 - NONTRAUMATIC INTRACRANIAL HEMORRHAGE, UNSPECIFIED (3) CVA (cerebral vascular accident) Code(s): I63.9 - CEREBRAL INFARCTION, UNSPECIFIED (4) Bilateral leg ulcer Code(s): L97.919 - NON-PRS CHRONIC ULC UNSP PRT OF R LOW LEG W UNSP SEVERITY L97.929 - NON-PRS CHRONIC ULC UNSP PRT OF L LOW LEG W UNSP SEVERITY (5) Leukocytosis Code(s): D72.829 - ELEVATED WHITE BLOOD CELL COUNT, UNSPECIFIED (6) Diarrhea Code(s): R19.7 - DIARRHEA, UNSPECIFIED Assessment/Plan Neuro SX consult appreciated (recommended medical treatment); pt can start SQ Heparin for DVT prophylasis Ortho consult appreciated (conservative management) PT evaluation Replete K To change Dilaudid to PO Monitor BCX
[2017-03-23 14:04] LABS: MAGNESIUM 1.9 mg/dL (1.8-2.4)
[2017-03-23] MEDS: CELECOXIB 100 MG CAPSULE PO SCH ×2 (17:30→21:37)
[2017-03-23] MEDS: SENNOSIDES 8.6MG TABLET (FP) PO SCH (21:31)
[2017-03-23 21:47] LABS: ANION GAP 6 (8-16); CALCIUM 8.2 mg/dL (8.5-10.1); CO2 31 mmol/L (21-32); CREATININE 0.4 mg/dL (0.55-1.02); GLUCOSE,RANDOM 98 mg/dL (74-106)
[2017-03-24] MEDS: GABAPENTIN 400 MG CAPSULE (FP) PO SCH ×2 (06:14→14:08)
[2017-03-24 06:59] LABS: ANION GAP 7 (8-16); CALCIUM 8.3 mg/dL (8.5-10.1); CO2 33 mmol/L (21-32); CREATININE 0.5 mg/dL (0.55-1.02); GLUCOSE,RANDOM 99 mg/dL (74-106)
[2017-03-24] MEDS: BACITRACIN 15 GM TUBE TOPICAL OINTMENT TP SCH (10:05)
[2017-03-24] MEDS: amLODIPine BESYLATE 2.5 MG TABLET (FP) PO SCH (10:05)
[2017-03-24] MEDS: CELECOXIB 100 MG CAPSULE PO SCH (10:05)
[2017-03-24] MEDS: ASCORBIC ACID 500 MG TABLET (FP) PO SCH (10:05)
[2017-03-24] MEDS: SIMETHICONE 80 MG TAB.CHEW (FP) PO SCH ×2 (10:05→14:08)
[2017-03-24] MEDS: GENTAMICIN SO4 0.1% TOP CREAM 15 GM/TUBE TP SCH (10:06)
[2017-03-24] MEDS: HEPARIN NA (PORCINE) 5,000 UNITS/ML 1ML VIAL SQ SCH (10:06)
--- NOTE | 2017-03-24 11:54 | DS ---
Physical Examination Vital Signs: Vital Signs Temperature 97.6 F 03/24/17 10:00 Pulse Rate 92 H 03/24/17 10:00 Respiratory Rate 19 03/24/17 10:00 Blood Pressure 127/69 03/24/17 10:00 O2 Sat by Pulse Oximetry (%) 95 03/24/17 09:00 Findings/Remarks: Pt w/o fever, chill, SOB, CP, abd pain, N, V. Pt c/o left 5-th toe pain Constitutional: Yes: No Distress, Calm Cardiovascular: Yes: Regular Rate and Rhythm, S1, S2 Respiratory: Yes: Regular, CTA Bilaterally. No: Rales Gastrointestinal: Yes: Normal Bowel Sounds, Soft. No: Tenderness Edema: No Neurological: Yes: Alert, Oriented Labs: CBC, BMP 03/23/17 05:20 03/24/17 05:15 Discharge Summary Reason For Visit: KNEE FRACTURE ACUTE Current Active Problems Bilateral leg ulcer (Acute) CVA (cerebral vascular accident) (Acute) Diarrhea (Acute) ICB (intracranial bleed) (Acute) Knee fracture, right (Acute) Leukocytosis (Acute) Procedures: Principal: Head CT scan (X 2). Leg CT scan Hospital Course: Pt is a resident of [facility], using a walker for ambulation, turned and fell (per pt her leg gave up on her); pt hit her head. Pt was transfered to ER, lee ann Head CT scan, positive for small periventricular white matter hyperdensity c /w hemorrhage; Pt also had right leg CT scan c/w fracture of right lateral femoral condyle. Pt was seen by Neuro SX (Dr. Melia Whitney), repeated Head CT scan showed stable hemorrhage; decision was made to treat pt medically. Pt was seen by Ortho ( Dr. Lent. Bill Hernández), no surgery needed, immobilizer was ordered, no weight bearing for 6 to 8 weeks. Pt with hypokalemia, corrected with supplementation and increased PO intake. Pt to be DC'ed to Rehab, with Ortho f/ u. Condition: Stable - Instructions Diet, Activity, Other Instructions: resume diet PT and OT NO weight bearing on right leg for 6 to 8 weeks ( to f/u with ORTHO in 5 weeks) Referrals: Tiburcio Zaragoza MD [Staff Physician] - Lent,Kyle E, MD [Staff Physician] - (in 5 weeks) - Home Medications Comprehensive Discharge Medication List: Ambulatory Orders This might NOT be accurate Calcium Polycarbophil [Fibercon] 625 mg PO BID 01/21/14 Gabapentin [Neurontin -] 400 mg PO Q8H 01/21/14 Gluc HCl/Csana/Gly-Am-Gly,Mx/C [Cosamin Ds Capsule] 1 each PO BID 01/21/14 Modafinil [Provigil] 200 mg PO BID 01/21/14 Sennosides [Senna -] 1 mg PO HS 01/21/14 Simethicone [Gas Relief] 80 mg PO QID 01/21/14 Metaxalone 1 tab PO BID 06/21/14 Hydromorphone [Dilaudid -] 1 tab PO BID PRN 07/16/16 Amlodipine Besylate 2.5 mg PO DAILY 09/24/16 Celebrex 100 mg PO BID 11/12/16 Vitamin C 500 mg PO DAILY 11/12/16 Vitamin D3 - 1 tab PO DAILY 11/12/16 Zofran 4 mg PO TID PRN 11/12/16 Acidoph/L.bulg/Bif.b/S.thermop [Yajaira-Bid Caplet] 1 cap PO BID 12/24/16
[2017-03-24 15:21] VITALS: BP 147/69; PULSE 97; TEMP 98.5
== END 2017-03-24 17:12 | DRG 964 ==
LOC: JER 21:05 → JERBED 03-19 02:20 → J2W 03-19 03:34
PROVIDERS: ADMIT Specialist; ATTEND Specialist
PROC: 2W3QXYZ Immobilization of Right Lower Leg using Other Device (ICD-10-PCS; principal; 2017-03-19)
DX: S06.300A Unspecified focal traumatic brain injury without loss of consciousness, initial encounter (principal); S72.414A Nondisplaced unspecified condyle fracture of lower end of right femur, initial encounter for closed fracture; E87.1 Hypo-osmolality and hyponatremia; L97.821 Non-pressure chronic ulcer of other part of left lower leg limited to breakdown of skin; L97.811 Non-pressure chronic ulcer of other part of right lower leg limited to breakdown of skin; S50.311A Abrasion of right elbow, initial encounter; W01.0XXA Fall on same level from slipping, tripping and stumbling without subsequent striking against object, initial encounter; Y93.89 Activity, other specified; Y92.122 Bedroom in nursing home as the place of occurrence of the external cause; Y99.8 Other external cause status; Z96.653 Presence of artificial knee joint, bilateral; I10 Essential (primary) hypertension; Z86.73 Personal history of transient ischemic attack (TIA), and cerebral infarction without residual deficits; I87.8 Other specified disorders of veins; Z66 Do not resuscitate; M13.0 Polyarthritis, unspecified; R19.7 Diarrhea, unspecified; D72.829 Elevated white blood cell count, unspecified
CPT/HCPCS: 36415; 70450-TC; 71010-TC; 73564-TC-RT; 73630-TC-LT; 73700-TC-RT; 80048; 80053; 82728; 83735; 84484; 85025; 85027; 85610; 87040; 93005; 93010; 97116-GP; 97161-GP; 99283-25; J1644

== ENCOUNTER 2017-08-29 13:16 | Inpatient (IN) | payer OTHER ==
[2017-08-29 13:34] VITALS: BMI 22.6
--- NOTE | 2017-08-29 14:44 | PDOC ---
History of Present Illness <Kristian De Anda - Last Filed: 08/29/17 15:58> - General History Source: Patient - History of Present Illness Initial Comments: 08/29/17 15:01 Patient is a 87 y.o. female with a PMH of HTN and Hemachromatosis who presents to our ED this afternoon at the behest of Dr. Tracy for a non-healing RLE wound. Patient states the wound appeared 1 month previous and she was initially using an Unna boot. As per staff at patient's NH and confirmed by patient's PCP, Dr. Zaragoza, patient has been on PO vancomycin with minimal healing. Patient c/o pain, however denies any subjective fevers, chills and c/ o significant RLE pain and states she has been ambulating with significant discomfort. NKDA PMD: Dr. 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) Cardiac Disorders: No CVA: No COPD: No CHF: No Dementia: No Diabetes: No GI Disorders: No Disorders: No HTN: Yes Hypercholesterolemia: No Liver Disease: No Seizures: No Thyroid Disease: No - Surgical History Abdominal Surgery: Yes (appendectomy 05/2014) Appendectomy: Yes Cardiac Surgery: No Cholecystectomy: Yes Lung Surgery: No Neurologic Surgery: No Orthopedic Surgery: Yes (bilateral hip knee replacement) - Immunization History Immunization Up to Date: Yes - Suicide/Smoking/Psychosocial Hx Smoking History: Never smoked Have you smoked in the past 12 months: No Information on smoking cessation initiated: No Hx Alcohol Use: No Drug/Substance Use Hx: No Substance Use Type: None Hx Substance Use Treatment: No <Sheila Addison - Last Filed: 08/29/17 18:38> - Past Medical History Allergies/Adverse Reactions: Allergies Allergy/AdvReac Type Severity Reaction Status Date / Time No Known Allergies Allergy Verified 08/29/17 13:26 Home Medications: Ambulatory Orders Gabapentin [Neurontin -] 400 mg PO Q8H 01/21/14 Sennosides [Senna -] 1 mg PO HS 01/21/14 Simethicone [Gas Relief] 80 mg PO QID 01/21/14 Acetaminophen [Tylenol] 650 mg PO TID 08/29/17 Amlodipine Besylate [Norvasc -] 2.5 mg PO DAILY 08/29/17 Ascorbate Calcium [Vitamin C] 500 mg PO DAILY 08/29/17 Bacitracin - [Bacitracin Topical Ointment -] 1 applic TP DAILY 08/29/17 Calcium Polycarbophil [Fiber Laxative] 625 mg PO HS 08/29/17 Celecoxib [Celebrex] 100 mg PO BID 08/29/17 Cholecalciferol (Vitamin D3) [Vitamin D3] 1,000 unit PO DAILY 08/29/17 Collagenase Clostridium Hist. [Santyl] 1 applic TP DAILY 08/29/17 Cyanocobalamin (Vitamin B-12) [Vitamin B-12] 1,000 mcg PO DAILY 08/29/17 Docusate Liquid [Colace Liquid -] 300 mg PO HS 08/29/17 Heparin Sodium,Porcine/Pf [Heparin Sod 5,000 Unit/ 0.5 ml] 5,000 unit SQ BID Hydromorphone [Dilaudid -] 4 mg PO Q4H 08/29/17 Lactobacillus Rhamnosus GG [Culturelle] 2 each PO DAILY 08/29/17 Multivitamins [Tab-A-Vit -] 1 tab PO DAILY 08/29/17 Ondansetron [Zofran -] 4 mg PO TID 08/29/17 Ranitidine HCl 150 mg PO DAILY 08/29/17 Vit B Comp/C/Folic/Iron/Vit E [Vitamin B Complex Tablet] 1 each PO DAILY Review of Systems - Review of Systems Constitutional: No: Chills, Fever HEENTM: No: Blurred Vision, Double Vision Respiratory: No: Cough, Shortness of Breath ABD/GI: No: Constipated, Nausea, Vomiting : No: Burning, Dysuria All Other Systems: Reviewed and Negative <Sheila Addison - Last Filed: 08/29/17 18:38> *Physical Exam - Vital Signs Last Vital Signs Temp Pulse Resp BP Pulse Ox 98.9 F 94 H 17 113/47 100 08/29/17 13:26 08/29/17 13:26 08/29/17 13:26 08/29/17 13:26 08/29/17 13:26 <Kristian De Anda - Last Filed: 08/29/17 15:58> - Vital Signs Last Vital Signs Temp Pulse Resp BP Pulse Ox 98.9 F 94 H 17 113/47 100 08/29/17 13:26 08/29/17 13:26 08/29/17 13:26 08/29/17 13:26 08/29/17 13:26 - Physical Exam General Appearance: Yes: Nourished, Thin Respiratory/Chest: positive: Lungs Clear, Normal Breath Sounds Cardiovascular: positive: S1, S2 Vascular Pulses: Dorsalis-Pedis (R): 2+, Doralis-Pedis (L): 2+ Gastrointestinal/Abdominal: positive: Normal Bowel Sounds, Soft Extremity: positive: Normal Capillary Refill, Normal Inspection, Other (RLE: 3x2 and 1x1 ulcers on the on the R dorsum of foot; LLE: 7x5cm non-healing flesh wound behind left calf; 2+ DP pulses intact b/l) Neurologic: positive: Fully Oriented, Alert <Sheila Addison - Last Filed: 08/29/17 18:38> ED Treatment Course - Additional Consults Time Called: 15:40 (First call. Awaiting call back.) Consult/PCP: Dr. Tiburcio Zaragoza <Kristian De Anda - Last Filed: 08/29/17 15:58> - LABORATORY CBC & Chemistry Diagram: 08/29/17 16:10 08/29/17 16:50 <Sheila Addison - Last Filed: 08/29/17 18:38> Medical Decision Making - Medical Decision Making 08/29/17 18:19 Patient is a 87 y.o. female who presents to our ED at the behest of Dr. Tracy for admission 2/2 to poor healing RLE wound. On PE patient is hemodynamically stable. Will order CBC/CMP, CXR and EKG in preparation for admission. Broad spectrum coverage Vanco/Pip Tazo. Case d/w Dr. Andrade Martin ([place]) and patient's PCP, Dr. Zaragoza. Patient to be admitted to inpatient medicine for IV antibiotics. Pain control with Morphine (patient states she is not taking Dilaudid as listed in her [place] med list, confirmed with [place]). Will continue monitor while in ED. <Sheila Addison - Last Filed: 08/29/17 18:38> *DC/Admit/Observation/Transfer - Attestations Scribe Attestion: 08/29/17 15:59 Documentation prepared by Kristian De Anda, acting as lpn or medical assistant for Philippe Bates MD <Kristian De Anda - Last Filed: 08/29/17 15:58> - Discharge Dispostion Admit: Yes <Sheila Addison - Last Filed: 08/29/17 18:38> Diagnosis at time of Disposition: Wound abscess - Discharge Dispostion Condition at time of disposition: Fair - Referrals Referrals: Tiburcio Zaragoza MD [Primary Care Provider] - - Patient Instructions - Post Discharge Activity
[2017-08-29] MEDS ORDERED: PIPERACILLIN/TAZOB 2.25 GM/50 ML PREMIX BAG IVPB ONE (15:03)
[2017-08-29] MEDS ORDERED: VANCOMYCIN 1,000 MG in DEXTROSE 5%-WATER - 500 ML IVPB ONE (15:15)
[2017-08-29] MEDS ORDERED: PIPERACILLIN/TAZOB 2.25 GM 2.25 GM/50 ML BAG IVPB ONE (15:15)
[2017-08-29] MEDS ORDERED: morphine CARPU-JECT 2 MG/1 ML DISP.SYRIN IVPUSH ONE ×2 (15:41→18:43)
--- NOTE | 2017-08-29 16:20 | PDOC ---
Attending Attestation - Resident Resident Name: Sheila Addison - ED Attending Attestation I have performed the following: I have examined & evaluated the patient, The case was reviewed & discussed with the resident, I agree w/resident's findings & plan, Exceptions are as noted <Philippe Bates - Last Filed: 08/29/17 16:20> - HPI HPI: 08/29/17 16:20 The patient is a 87 year old female, with a significant past medical history of skin cancer, hypertension, b/l knee replacements, and polyarthritis, who presents to the emergency department with right lower extremity wound for approximately 1 month. Patient reports associated right foot pain, but denies any discharge. She denies any recent fever or chills. She denies any chest pain , shortness of breath, diaphoresis, palpitations, or lower extremity edema. She denies any recent travel or sick contacts. - Physicial Exam PE: 08/29/17 16:21 Vitals: Triage vital signs reviewed General Appearance: No acute distress, well nourished, well developed. Afebrile Cardiac: Regular rate and rhythm, no murmurs, no rubs, no gallops Lungs: Clear to auscultation bilateral, good air movement bilaterally Extremities: Full range of motion to all extremities, no cyanosis. Skin: 3x3 cm active ulcer to the the dorsum of the right foot. Right foot is erythematous and warm to touch. Remainder of the extremities normal. Neuro: AOX3; Cranial Nerves 2-12 grossly intact, Strength intact to upper extremities, Sensation intact to all extremities Psych: Normal mood, normal affect - Medical Decision Making 08/29/17 16:21 Pt is a 87 year old female, with a significant past medical history of skin cancer, hypertension, b/l knee replacements, and polyarthritis, who presents to the emergency department with right lower extremity wound for approximately 1 month. Plan: -Wound culture -CBC,CMP -ECG -CXR, XR right foot Documentation prepared by Kristian De Anda, acting as medical records manager for Philippe Bates MD. <Kristian De Anda - Last Filed: 08/29/17 16:38> Heart Score/ECG Review - ECG Intrepretation Comment:: 08/29/17 16:38 Vent Rate: 94 bpm IMPRESSION: Possible anterior infarct, but no ST elevations or T wave inversions. <Kristian De Anda - Last Filed: 08/29/17 16:38>
[2017-08-29 16:25] LABS: BASO % 0.5 % (0-2.0); EOS % 0.8 % (0-4.5); HEMATOCRIT 33.4 % (32.4-45.2); HEMOGLOBIN 11.1 GM/dL (10.7-15.3); LYMPH % 7.1 % (8-40); MCH 31.6 pg (25.7-33.7); MCHC 33.2 g/dl (32.0-36.0); MEAN CELL VOLUME 95.2 fl (80-96); MEAN PLT VOLUME 7.9 fl (7.5-11.1); NEUT % 85.6 % (42.8-82.8); PLATELET COUNT 407 K/MM3 (134-434); RDW 13.7 % (11.6-15.6); WHITE BLOOD COUNT 11.1 K/mm3 (4.0-10.0)
[2017-08-29] MEDS ORDERED: PIPERACILLIN/TAZOBACTAM 2.25 GM VIAL IVPB ONE (16:42)
[2017-08-29] MEDS ORDERED: morphine CARPU-JECT 10 MG/1 ML DISP.SYRIN ONE ×2 (16:58→19:30)
[2017-08-29] MEDS ORDERED: VANCOMYCIN 1 GRAM (PRE-DOCKED) 1,000 MG/250 ML BAG IVPB ONE (18:15)
[2017-08-29] MEDS ORDERED: HYDROmorphone HCL 2 MG TABLET ONE (18:36)
--- NOTE | 2017-08-29 18:36 | HP ---
Admitting History and Physical - Primary Care Physician PCP: Tiburcio Zaragoza - Admission Chief Complaint: foot ulcer History of Present Illness: Pt with Hx/o PVD, LE ulcers, [facility] Tracy, recently with right anterior ankle ulcer, treated locally and with Bactrim ( for 4 weeks), seen in [facility] yesterday, noticed to have worsening of the ankle ulcer, probable OM, was referred to ER for evaluation/ treatment. History Source: Patient - Past Medical History [employer]: Yes: CVA Musculoskeletal: Yes: Osteoarthritis (multiple sites, sever, on Dilaudid PO) - Smoking History Smoking history: Never smoked Have you smoked in the past 12 months: No - Alcohol/Substance Use Hx Alcohol Use: No Home Medications - Allergies Allergies/Adverse Reactions: Allergies Allergy/AdvReac Type Severity Reaction Status Date / Time No Known Allergies Allergy Verified 08/29/17 13:26 - Home Medications Home Medications: Ambulatory Orders Gabapentin [Neurontin -] 400 mg PO BID 01/21/14 Sennosides [Senna -] 1 mg PO HS 01/21/14 Simethicone [Gas Relief] 2 tab PO QID 01/21/14 Acetaminophen [Tylenol] 650 mg PO TID 08/29/17 Amlodipine Besylate [Norvasc -] 2.5 mg PO DAILY 08/29/17 Ascorbate Calcium [Vitamin C] 500 mg PO DAILY 08/29/17 Bacitracin - [Bacitracin Topical Ointment -] 1 applic TP DAILY 08/29/17 Calcium Polycarbophil [Fiber Laxative] 625 mg PO HS 08/29/17 Celecoxib [Celebrex] 100 mg PO BID 08/29/17 Cholecalciferol (Vitamin D3) [Vitamin D3] 1,000 unit PO DAILY 08/29/17 Collagenase Clostridium Hist. [Santyl] 1 applic TP DAILY 08/29/17 Cyanocobalamin (Vitamin B-12) [Vitamin B-12] 1,000 mcg PO DAILY 08/29/17 Docusate Liquid [Colace Liquid -] 300 mg PO HS 08/29/17 Heparin Sodium,Porcine/Pf [Heparin Sod 5,000 Unit/ 0.5 ml] 5,000 unit SQ BID Hydromorphone [Dilaudid -] 4 mg PO Q4H 08/29/17 Lactobacillus Rhamnosus GG [Culturelle] 2 each PO DAILY 08/29/17 Multivitamins [Tab-A-Vit -] 1 tab PO DAILY 08/29/17 Ondansetron [Zofran -] 4 mg PO TID 08/29/17 Ranitidine HCl 150 mg PO DAILY 08/29/17 Vit B Comp/C/Folic/Iron/Vit E [Vitamin B Complex Tablet] 1 each PO DAILY Review of Systems - Review of Systems Constitutional: denies: Chills, Fever Eyes: denies: Blurred Vision, Double Vision, Photophobia HENT: denies: Difficult Swallowing, Ear Discharge, Ear Pain, Throat Pain Neck: denies: Stiffness, Tenderness Cardiovascular: denies: Chest Pain, Edema, Palpitations Respiratory: denies: Cough, SOB, Wheezing Gastrointestinal: reports: Constipation (on and off). denies: Abdominal Pain, Diarrhea Genitourinary: denies: Burning, Discharge, Dysuria Musculoskeletal: reports: Joint Pain Integumentary: denies: Bruising, Eczema Neurological: denies: Change in LOC, Change in Speech Endocrine: denies: Excessive Sweating, Intolerance to Cold Hematology/Lymphatic: denies: Easily Bruised, Excessive Bleeding Psychiatric: denies: Anxiety, Depression Physical Examination Vital Signs: Vital Signs Temperature 98.9 F 08/29/17 13:26 Pulse Rate 94 H 08/29/17 13:26 Respiratory Rate 17 08/29/17 13:26 Blood Pressure 113/47 08/29/17 13:26 O2 Sat by Pulse Oximetry (%) 100 08/29/17 13:26 Constitutional: Yes: No Distress, Calm Eyes: Yes: Conjunctiva Clear, EOM Intact HENT: Yes: Pharyngeal Erythema. No: Epistaxis, Rhinnorhea Neck: Yes: Trachea Midline. No: Lymphadenopathy Cardiovascular: Yes: Regular Rate and Rhythm, S1, S2 Respiratory: Yes: Regular, CTA Bilaterally. No: Rales Gastrointestinal: Yes: Normal Bowel Sounds, Soft. No: Tenderness Edema: No Wound/Incision: Yes: Other (right ankle stage 4 ulcer; bilat leg ulcers) Neurological: Yes: Alert, Oriented, Other (motor and sensory examination is symmetric in UE/ LE/ face) Psychiatric: Yes: Alert, Oriented Labs: CBC, BMP 08/29/17 16:10 08/29/17 16:50 Imaging - Results X-ray: Report Reviewed Problem List - Problems (1) Ulcer of right ankle Code(s): L97.319 - NON-PRESSURE CHRONIC ULCER OF RIGHT ANKLE WITH UNSP SEVERITY (2) Bilateral leg ulcer Code(s): L97.919 - NON-PRS CHRONIC ULC UNSP PRT OF R LOW LEG W UNSP SEVERITY; L97.929 - NON-PRS CHRONIC ULC UNSP PRT OF L LOW LEG W UNSP SEVERITY (3) PVD (peripheral vascular disease) Code(s): I73.9 - PERIPHERAL VASCULAR DISEASE, UNSPECIFIED (4) CVA (cerebral vascular accident) Code(s): I63.9 - CEREBRAL INFARCTION, UNSPECIFIED (5) Hypertension Code(s): I10 - ESSENTIAL (PRIMARY) HYPERTENSION Assessment/Plan IV abtx ID consult Vasc SX consult Probable pt would need PICC line and intermediate teacher abtx treatment. AM labs
[2017-08-29 19:11] LABS: ALK PHOS 198 U/L (45-117); ANION GAP 12 (8-16); BILIRUBIN,TOTAL 0.1 mg/dL (0.2-1.0); BLOOD UREA NITROGEN 21 mg/dL (7-18); CALCIUM 8.1 mg/dL (8.5-10.1); CHLORIDE 100 mmol/L (98-107); CO2 22 mmol/L (21-32); CREATININE 1.4 mg/dL (0.55-1.02); GLUCOSE,RANDOM 131 mg/dL (74-106); POTASSIUM 4.8 mmol/L (3.5-5.1); SGOT/AST 19 U/L (15-37); SGPT/ALT 11 U/L (12-78); SODIUM 134 mmol/L (136-145)
[2017-08-29] MEDS: SODIUM CHLORIDE 500 ML IV SCH (19:41)
[2017-08-29] MEDS ORDERED: HYDROmorphone HCL 2 MG TABLET PO SCH (22:00)
[2017-08-29] MEDS: HEPARIN NA (PORCINE) 5,000 UNITS/ML 1ML VIAL SQ SCH (22:40)
[2017-08-29] MEDS: DOCUSATE NA 100 MG/10 ML UNIT-DOSE CUPS PO SCH (22:45)
[2017-08-29] MEDS: GABAPENTIN 400 MG CAPSULE (FP) PO SCH (22:45)
[2017-08-29] MEDS: SIMETHICONE 80 MG TAB.CHEW (FP) PO SCH (22:45)
[2017-08-29] MEDS: SENNOSIDES 8.6MG TABLET (FP) PO SCH (22:45)
[2017-08-29] MEDS: CELECOXIB 100 MG CAPSULE PO SCH (22:45)
[2017-08-29] MEDS: ONDANSETRON 4 MG TABLET PO SCH (22:45)
[2017-08-29] MEDS: ACETAMINOPHEN 325 MG TABLET (FP) PO SCH (23:21)
[2017-08-30] MEDS ORDERED: ACETAMINOPHEN 325 MG TABLET (FP) ONE ×2 (05:47→13:55)
[2017-08-30] MEDS: ONDANSETRON 4 MG TABLET PO SCH ×3 (06:19→21:08)
[2017-08-30] MEDS: ACETAMINOPHEN 325 MG TABLET (FP) PO SCH ×3 (06:19→21:08)
[2017-08-30] MEDS ORDERED: morphine CARPU-JECT 10 MG/1 ML DISP.SYRIN ONE ×3 (06:21→15:38)
[2017-08-30 08:03] LABS: HEMATOCRIT 31.9 % (32.4-45.2); HEMOGLOBIN 10.3 GM/dL (10.7-15.3); MCH 31.6 pg (25.7-33.7); MCHC 32.5 g/dl (32.0-36.0); MEAN CELL VOLUME 97.3 fl (80-96); MEAN PLT VOLUME 7.9 fl (7.5-11.1); PLATELET COUNT 348 K/MM3 (134-434); RBC 3.27 M/mm3 (3.60-5.2); RDW 14.1 % (11.6-15.6); WHITE BLOOD COUNT 7.5 K/mm3 (4.0-10.0)
[2017-08-30 08:24] LABS: ALBUMIN 2.1 g/dl (3.4-5.0); ANION GAP 15 (8-16); BLOOD UREA NITROGEN 15 mg/dL (7-18); CALCIUM 8.3 mg/dL (8.5-10.1); CHLORIDE 100 mmol/L (98-107); CO2 20 mmol/L (21-32); CREATININE 0.9 mg/dL (0.55-1.02); GLUCOSE,RANDOM 81 mg/dL (74-106); SODIUM 135 mmol/L (136-145)
[2017-08-30 08:26] LABS: ALK PHOS 216 U/L (45-117); BILIRUBIN,TOTAL 0.3 mg/dL (0.2-1.0); SGPT/ALT 12 U/L (12-78); TOT PROT 6.4 g/dl (6.4-8.2)
[2017-08-30 08:46] LABS: POTASSIUM 4.2 mmol/L (3.5-5.1); SGOT/AST 37 U/L (15-37)
[2017-08-30] MEDS ORDERED: PIPERACILLIN/TAZOB 3.375 GM/50 ML PRE-DOCKED IVPB ONE (09:45)
--- NOTE | 2017-08-30 09:59 | PN ---
Progress Note (short form) - Note Progress Note: imp/reccd 87 year old female with worsening nonhealing ankle ulcer right foot d/w Dr Tracy and Dr Zaragoza she has been on about one month of PO bactrim without any improvement- wound culture 07/19 with MRSA apparently wound now probes to bone suggest probable osteomyelitis/chronic foot wound MRI Bone biopsy (failed bactrim) ?need for debridement podiatry consult esr/crp noted hold antibiotics for now- hopefully biopsy off antibiotics Problem List - Problems (1) Osteomyelitis Code(s): M86.9 - OSTEOMYELITIS, UNSPECIFIED (2) Ulcer of right ankle Code(s): L97.319 - NON-PRESSURE CHRONIC ULCER OF RIGHT ANKLE WITH UNSP SEVERITY
[2017-08-30] MEDS: amLODIPine BESYLATE 2.5 MG TABLET (FP) PO SCH (10:37)
[2017-08-30] MEDS: RANITIDINE HCL 150 MG TABLET (FP) PO SCH (10:37)
[2017-08-30] MEDS: MULTIVITAMINS (DAILY MVI) TABLET (FP) PO SCH (10:37)
[2017-08-30] MEDS: LACTOBACILLUS ACIDOPHILUS 1 EACH TAB (FP) PO SCH (10:38)
[2017-08-30] MEDS: BACITRACIN 15 GM TUBE TOPICAL OINTMENT TP SCH (10:38)
[2017-08-30] MEDS: SIMETHICONE 80 MG TAB.CHEW (FP) PO SCH ×4 (10:38→21:08)
[2017-08-30] MEDS: GABAPENTIN 400 MG CAPSULE (FP) PO SCH ×2 (10:38→21:08)
[2017-08-30] MEDS: HEPARIN NA (PORCINE) 5,000 UNITS/ML 1ML VIAL SQ SCH ×2 (10:38→21:09)
[2017-08-30] MEDS: CELECOXIB 100 MG CAPSULE PO SCH ×2 (10:38→23:10)
--- NOTE | 2017-08-30 10:51 | EKG ---
Test Reason : Blood Pressure : / mmHG Vent. Rate : 094 BPM Atrial Rate : 094 BPM P-R Int : 128 ms QRS Dur : 076 ms QT Int : 346 ms P-R-T Axes : 033 -22 058 degrees QTc Int : 432 ms POOR DATA QUALITY, INTERPRETATION MAY BE ADVERSELY AFFECTED NORMAL SINUS RHYTHM POSSIBLE ANTERIOR INFARCT , AGE UNDETERMINED ABNORMAL ECG WHEN COMPARED WITH ECG OF 18-MAR-2017 21:36, ST NOW DEPRESSED IN INFERIOR LEADS Confirmed by MD Alex, Silvestre ([id number]) on 08/30/2017 10:51:01 AM Referred By: Confirmed By:Silvetsre Johnson MD
[2017-08-30] MEDS: morphine CARPU-JECT 10 MG/1 ML DISP.SYRIN IVPUSH PRN ×3 (10:55→20:57)
--- NOTE | 2017-08-30 11:45 | CONS ---
DATE OF CONSULTATION: REQUESTING PHYSICIAN: Dr. Zaragoza HISTORY: This is an 87-year-old woman. 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 She is admitted for a nonhealing right lower extremity wound. I spoke with both her doctors who report that she has had this ulcer for about 2 months now on her right leg. She has a history that in March she was in the hospital after she sustained a fall and had right knee pain. She was found to have a right distal femur fracture that was a nondisplaced periprosthetic fracture and was treated conservatively. At that time, an immobilizer was used with improvement. She subsequently developed this ulcer. A wound culture in early July grew MRSA, and she has been on Bactrim since that time. She was seen yesterday in wound care, and the wound had not improved. Dr. Tracy felt it probe to bone, and he advised MRI and further evaluation for osteomyelitis. She was admitted for this. She was given 1 dose of vancomycin and Zosyn in the emergency room. I am asked to see her for further evaluation. The patient is awake and alert. She complains of severe leg pain. She has not been ambulating at all, and she has right foot drop. It is unclear when she last ambulated. She says she does have a rollator. PAST MEDICAL HISTORY: Notable for CVA. She has had ulcers on her leg in the past. She has had a history of skin cancer to her right shoulder. She has hypertension. PAST SURGICAL HISTORY: Notable for appendectomy, cholecystectomy. She has had bilateral hip and knee replacements. She has had a patella, and her patella has been removed as well. ALLERGIES: She has no known drug allergies. MEDICATIONS: At the alf currently include Neurontin, Senna, simethicone, amlodipine, vitamin C, bacitracin, Celebrex, vitamin D, Santyl, vitamin B12, Colace, subcutaneous heparin, Dilaudid, Lactobacillus, multivitamin, Zofran, ranitidine, and vitamin B. REVIEW OF SYSTEMS: She has no fevers or chills. Her main complaints are of leg pain. She has severe leg pain when her foot is moved. PHYSICAL EXAMINATION: General: She is a pleasant, elderly woman. She has had no fever. Vital Signs: Current temperature is 98.3, pulse is 71, blood pressure 132/77, respiratory rate 18. She is saturating 96% on room air. HEENT: She is normocephalic. Her eyes are anicteric. Neck: Supple. Lungs: Clear to auscultation. Heart: Regular rate and rhythm. Abdomen: Soft and nontender. Extremities: Notable for she has healed incisions on both her knees. She is missing a left kneecap. She has some chronic ulcerations on the mid tibia of both her legs. On the lateral aspect of her right ankle, she has 2 open, necrotic ulcers with minimal edema. There is no purulence or odor. Her chest x-ray is unchanged. There is no acute pathology. X-ray of the foot shows no evidence of osteomyelitis. Labs are noted for a white count 7.5, hemoglobin 10.3, platelets 248. Her sedimentation rate is 97. Her CRP is 22. BUN 15, creatinine 0.9. Her alkaline phosphatase is 216 with an albumin of 2.1. Blood cultures and wound cultures are pending. I suspect at this time that she has osteomyelitis of her right lateral foot or ankle. I would suggest we obtain an MRI of the foot and ankle. Would obtain a bone biopsy as she has failed Bactrim. Consider debridement. I spoke with Dr. Tracy and Dr. Zaragoza. Would hold further antibiotics in an effort to get a biopsy off antibiotics. Sedimentation rate and CRP are noted to be quite elevated and would suggest Podiatry to evaluate as well. SCOUT SWENSON M.D. [id number]
[2017-08-30] MEDS ORDERED: ONDANSETRON *ODT* 4 MG TABLET ONE (13:55)
--- NOTE | 2017-08-30 16:45 | CONSULT ---
Consult - text type - Consultation Consultation Note: Podiatry Consultation: Pleasant 87 year old PVD F presents for admission to ED sent by Dr. Tracy for non-healing, worsening pressure ulcer R anterior rearfoot. Patient treated with course of PO abx for about 4 weeks with no improvement in symptoms. Denies F/V/N/C/SOB/CP. AFebrile, VSS. PMHx: HTN, PVD, CVA, arthritis Meds: noted ALL: NKMA SUHAIL: Pedal pulses non-palpable, TG wnl, CFT brisk to all toes. There is a dorsal lateral rearfoot pressure ulcer unstageable with necrotic eschar superficially, fibrotic underlying tissue, probes deep, overhanging margins, periwound erythema present, no streaking cellulitis, no purulent drainage, no soft tissue crepitus. Significant tenderness to palpation. WBC: 7.5 ESR: 97 Blood Cx: pending R foot XR: no radiographic evidence of osteomyelitis Imp: 87 year old PVD F with R foot pressure ulcer unstageable, r/o osteomyelitis 1. IV abx, Infectious Disease consultation 2. DSD R foot 3. For MRI to rule out osteomyelitis 4. Depending on results of MRI, +/- bone biopsy 5. Will follow. Thank you for the courtesy of this consultation Paola Shafer DPM
--- NOTE | 2017-08-30 18:16 | PN ---
Progress Note (short form) - Note Progress Note: Vascular Surgery Pt seen and examined in C yest. Pt was then sent in for admission for right ankle ulcer that probes to bone. Podiatry on case along with ID MRI ordered to rule out osteo. Santyl to all wounds daily. Palmer montanez DO
[2017-08-30] MEDS ORDERED: PT OWN MED DRAWER 7, Y5N ONE ×3 (21:03→23:06)
[2017-08-30] MEDS: SENNOSIDES 8.6MG TABLET (FP) PO SCH (21:08)
--- NOTE | 2017-08-30 21:23 | PN ---
Progress Note, Physician History of Present Illness: Pt w/o fever, chills. Pt with right ankle pain, on and off. Pt w/o SOB, CP, palp, abd pain. - Current Medication List Current Medications: Active Medications Acetaminophen (Tylenol -) 650 mg PO TID [facility] Last Admin: 08/30/17 21:08 Dose: 650 mg Amlodipine Besylate (Norvasc -) 2.5 mg PO DAILY [facility] Last Admin: 08/30/17 10:37 Dose: 2.5 mg Bacitracin (Bacitracin -) 1 applic TP DAILY [facility] Last Admin: 08/30/17 10:38 Dose: 1 applic Celecoxib (Celebrex -) 100 mg PO BID [facility] Last Admin: 08/30/17 10:38 Dose: 100 mg Collagenase (Santyl -) 1 applic TP DAILY [facility] Docusate Sodium (Colace Liquid -) 300 mg PO HS [facility] Last Admin: 08/29/17 22:45 Dose: 300 mg Gabapentin (Neurontin -) 400 mg PO BID [facility] Last Admin: 08/30/17 21:08 Dose: 400 mg Heparin Sodium (Porcine) (Heparin -) 5,000 unit SQ BID [facility] Last Admin: 08/30/17 21:09 Dose: 5,000 unit Sodium Chloride (Normal Saline -) 500 mls @ 50 mls/hr IV ASDIR [facility] Last Admin: 08/29/17 19:41 Dose: 50 mls/hr Lactobacillus Acidophilus (Bacid -) 2 tab PO DAILY [facility] Last Admin: 08/30/17 10:38 Dose: 2 tab Morphine Sulfate (Morphine Injection -) 4 mg IVPUSH Q4H PRN PRN Reason: PAIN LEVEL 4 - 6 Last Admin: 08/30/17 20:57 Dose: 4 mg Multivitamins/Minerals/Vitamin C (Tab-A-Vit -) 1 tab PO DAILY [facility] Last Admin: 08/30/17 10:37 Dose: 1 tab Ondansetron HCl (Zofran -) 4 mg PO TID [facility] Last Admin: 08/30/17 21:08 Dose: 4 mg Ranitidine HCl (Zantac -) 150 mg PO DAILY [facility] Last Admin: 08/30/17 10:37 Dose: 150 mg Senna (Senna -) 1 tab PO HS [facility] Last Admin: 08/30/17 21:08 Dose: 1 tab Simethicone (Mylicon -) 160 mg PO QID [facility] Last Admin: 08/30/17 21:08 Dose: 160 mg - Objective Vital Signs: Vital Signs Temperature 99.2 F 08/30/17 20:26 Pulse Rate 76 08/30/17 20:26 Respiratory Rate 18 08/30/17 20:26 Blood Pressure 131/93 08/30/17 20:26 O2 Sat by Pulse Oximetry (%) 97 08/30/17 18:16 Constitutional: Yes: No Distress, Calm Cardiovascular: Yes: Regular Rate and Rhythm, S1, S2 Respiratory: Yes: Regular, CTA Bilaterally (except coarse at bases), Rhonchi Gastrointestinal: Yes: Normal Bowel Sounds, Soft, Tenderness Extremities: Yes: Other (clean dressing over right ankle ulcer.) Edema: No Neurological: Yes: Alert, Oriented Labs: CBC, BMP 08/30/17 06:30 08/30/17 06:30 Problem List - Problems (1) Ulcer of right ankle Code(s): L97.319 - NON-PRESSURE CHRONIC ULCER OF RIGHT ANKLE WITH UNSP SEVERITY (2) Bilateral leg ulcer Code(s): L97.919 - NON-PRS CHRONIC ULC UNSP PRT OF R LOW LEG W UNSP SEVERITY; L97.929 - NON-PRS CHRONIC ULC UNSP PRT OF L LOW LEG W UNSP SEVERITY (3) Hypertension Code(s): I10 - ESSENTIAL (PRIMARY) HYPERTENSION (4) CVA (cerebral vascular accident) Code(s): I63.9 - CEREBRAL INFARCTION, UNSPECIFIED (5) PVD (peripheral vascular disease) Code(s): I73.9 - PERIPHERAL VASCULAR DISEASE, UNSPECIFIED Assessment/Plan Abtx per ID- case was discussed with Dr. Ferrer ID consult appreciated Vasc SX consult appreciated Podiatry consult appreciated AM labs
[2017-08-30] MEDS: SODIUM CHLORIDE 500 ML IV SCH (21:29)
[2017-08-30] MEDS: DOCUSATE NA 100 MG/10 ML UNIT-DOSE CUPS PO SCH (21:30)
[2017-08-31] MEDS: ACETAMINOPHEN 325 MG TABLET (FP) PO SCH ×3 (05:45→22:01)
[2017-08-31] MEDS: ONDANSETRON 4 MG TABLET PO SCH ×3 (05:47→22:02)
[2017-08-31 08:24] LABS: HEMOGLOBIN 8.9 GM/dL (10.7-15.3); MCH 31.6 pg (25.7-33.7); MCHC 32.9 g/dl (32.0-36.0); MEAN CELL VOLUME 96.2 fl (80-96); MEAN PLT VOLUME 7.5 fl (7.5-11.1); PLATELET COUNT 297 K/MM3 (134-434); RDW 13.6 % (11.6-15.6); WHITE BLOOD COUNT 5.5 K/mm3 (4.0-10.0)
[2017-08-31 08:50] LABS: ANION GAP 9 (8-16); BLOOD UREA NITROGEN 12 mg/dL (7-18); CALCIUM 8.1 mg/dL (8.5-10.1); CHLORIDE 103 mmol/L (98-107); CO2 24 mmol/L (21-32); CREATININE 0.6 mg/dL (0.55-1.02); GLUCOSE,RANDOM 85 mg/dL (74-106); POTASSIUM 4.1 mmol/L (3.5-5.1); SODIUM 136 mmol/L (136-145)
--- NOTE | 2017-08-31 09:04 | PN ---
Progress Note, Physician History of Present Illness: Pt w/o fever, chills. Pt with right ankle pain is controlled by medication. Pt w/o SOB, CP, palp, abd pain. Pt c/o constipation. - Current Medication List Current Medications: Active Medications Acetaminophen (Tylenol -) 650 mg PO TID [facility] Last Admin: 08/31/17 05:45 Dose: 650 mg Amlodipine Besylate (Norvasc -) 2.5 mg PO DAILY [facility] Last Admin: 08/30/17 10:37 Dose: 2.5 mg Bacitracin (Bacitracin -) 1 applic TP DAILY [facility] Last Admin: 08/30/17 10:38 Dose: 1 applic Celecoxib (Celebrex -) 100 mg PO BID [facility] Last Admin: 08/30/17 23:10 Dose: 100 mg Collagenase (Santyl -) 1 applic TP DAILY [facility] Docusate Sodium (Colace Liquid -) 300 mg PO HS [facility] Last Admin: 08/30/17 21:30 Dose: Not Given Gabapentin (Neurontin -) 400 mg PO BID [facility] Last Admin: 08/30/17 21:08 Dose: 400 mg Heparin Sodium (Porcine) (Heparin -) 5,000 unit SQ BID [facility] Last Admin: 08/30/17 21:09 Dose: 5,000 unit Sodium Chloride (Normal Saline -) 500 mls @ 50 mls/hr IV ASDIR [facility] Last Admin: 08/30/17 21:29 Dose: 50 mls/hr Lactobacillus Acidophilus (Bacid -) 2 tab PO DAILY [facility] Last Admin: 08/30/17 10:38 Dose: 2 tab Morphine Sulfate (Morphine Injection -) 4 mg IVPUSH Q4H PRN PRN Reason: PAIN LEVEL 4 - 6 Last Admin: 08/30/17 20:57 Dose: 4 mg Multivitamins/Minerals/Vitamin C (Tab-A-Vit -) 1 tab PO DAILY [facility] Last Admin: 08/30/17 10:37 Dose: 1 tab Ondansetron HCl (Zofran -) 4 mg PO TID [facility] Last Admin: 08/31/17 05:47 Dose: 4 mg Ranitidine HCl (Zantac -) 150 mg PO DAILY [facility] Last Admin: 08/30/17 10:37 Dose: 150 mg Senna (Senna -) 1 tab PO [facility] Last Admin: 08/30/17 21:08 Dose: 1 tab Simethicone (Mylicon -) 160 mg PO QID [facility] Last Admin: 08/30/17 21:08 Dose: 160 mg - Objective Vital Signs: Vital Signs Temperature 98.4 F 08/31/17 06:00 Pulse Rate 72 08/31/17 06:00 Respiratory Rate 18 08/31/17 06:00 Blood Pressure 122/66 08/31/17 06:00 O2 Sat by Pulse Oximetry (%) 95 08/30/17 21:00 Constitutional: Yes: No Distress, Calm Cardiovascular: Yes: Regular Rate and Rhythm, S1, S2 Respiratory: Yes: Regular, CTA Bilaterally (except coarse at bases) Gastrointestinal: Yes: Normal Bowel Sounds, Soft. No: Tenderness Extremities: Yes: Other (right ankle with clean dressing) Edema: No Neurological: Yes: Alert, Oriented Labs: CBC, BMP 08/31/17 07:12 08/31/17 07:12 Problem List - Problems (1) Ulcer of right ankle Code(s): L97.319 - NON-PRESSURE CHRONIC ULCER OF RIGHT ANKLE WITH UNSP SEVERITY (2) Bilateral leg ulcer Code(s): L97.919 - NON-PRS CHRONIC ULC UNSP PRT OF R LOW LEG W UNSP SEVERITY; L97.929 - NON-PRS CHRONIC ULC UNSP PRT OF L LOW LEG W UNSP SEVERITY (3) PVD (peripheral vascular disease) Code(s): I73.9 - PERIPHERAL VASCULAR DISEASE, UNSPECIFIED (4) CVA (cerebral vascular accident) Code(s): I63.9 - CEREBRAL INFARCTION, UNSPECIFIED (5) Hypertension Code(s): I10 - ESSENTIAL (PRIMARY) HYPERTENSION (6) Anemia Assessment/Plan: to send Iron studies Code(s): D64.9 - ANEMIA, UNSPECIFIED Assessment/Plan Pending Foot MRI. ID consult, Vasc SX. Podiatry consults appreciated. Pt's nondenominational sisters health coordinator at bedside, plan was discussed. Case was d/w pt's nurse and nursing cotton gin yard supervisor. AM labs
--- NOTE | 2017-08-31 09:14 | PN ---
Progress Note (short form) - Note Progress Note: Podiatry: Seen/evaluated at bedside, NAD. Has persistent pain to R dorsal foot. Denies F /V/N/C/SOB/CP. AFebrile, VSS. Awaiting MRI R foot/ankle. SUHAIL: R foot: dorsal lateral pressure ulcer, midfoot/rearfoot, unstageable, necrotic cap with underlying fibrotic base, probes deep, moderate periwound erythema, no purulent drainage, no fluctuance, no soft tissue crepitus, no streaking cellulitis. Significant tenderness to palpation. Wound Cx: pending Blood Cx: no growth x 24 hrs WBC: 5.5 ESR: 97 R foot XR: no radiographic evidence of OM R Foot/ankle MRI: pending Imp: 87 year old F with R dorsal rearfoot pressure ulcer unstageable, eval for osteomyelitis 1. Abx on hold per ID 2. Continue local wound care 3. Awaiting MRI. If (+) will consider bone biopsy 4. Will follow Paola Shafer DPM
[2017-08-31] MEDS: RANITIDINE HCL 150 MG TABLET (FP) PO SCH (11:06)
[2017-08-31] MEDS: LACTOBACILLUS ACIDOPHILUS 1 EACH TAB (FP) PO SCH (11:06)
[2017-08-31] MEDS: SIMETHICONE 80 MG TAB.CHEW (FP) PO SCH ×4 (11:06→22:00)
[2017-08-31] MEDS: CELECOXIB 100 MG CAPSULE PO SCH ×2 (11:07→21:58)
[2017-08-31] MEDS: GABAPENTIN 400 MG CAPSULE (FP) PO SCH ×2 (11:07→22:00)
[2017-08-31] MEDS: MULTIVITAMINS (DAILY MVI) TABLET (FP) PO SCH (11:07)
[2017-08-31] MEDS: HEPARIN NA (PORCINE) 5,000 UNITS/ML 1ML VIAL SQ SCH ×2 (11:08→21:59)
[2017-08-31] MEDS: DOCUSATE NA 100 MG/10 ML UNIT-DOSE CUPS PO SCH (11:08)
[2017-08-31] MEDS: amLODIPine BESYLATE 2.5 MG TABLET (FP) PO SCH (11:10)
[2017-08-31] MEDS: morphine CARPU-JECT 10 MG/1 ML DISP.SYRIN IVPUSH PRN ×3 (11:33→22:27)
[2017-08-31] MEDS: BACITRACIN 15 GM TUBE TOPICAL OINTMENT TP SCH (15:53)
[2017-08-31] MEDS: COLLAGENASE CLOSTRIDIUM HIST. 30 GRAMS TUBE TP SCH (16:37)
[2017-08-31] MEDS: SENNOSIDES 8.6MG TABLET (FP) PO SCH (22:01)
[2017-09-01] MEDS: ACETAMINOPHEN 325 MG TABLET (FP) PO SCH ×3 (06:09→21:57)
[2017-09-01] MEDS: ONDANSETRON 4 MG TABLET PO SCH ×3 (06:10→21:57)
[2017-09-01] MEDS: morphine CARPU-JECT 10 MG/1 ML DISP.SYRIN IVPUSH PRN ×5 (06:16→23:29)
[2017-09-01 07:58] LABS: HEMATOCRIT 31.4 % (32.4-45.2); HEMOGLOBIN 10.1 GM/dL (10.7-15.3); MCHC 32.1 g/dl (32.0-36.0); MEAN CELL VOLUME 96.8 fl (80-96); MEAN PLT VOLUME 7.2 fl (7.5-11.1); PLATELET COUNT 302 K/MM3 (134-434); RBC 3.24 M/mm3 (3.60-5.2); RDW 13.8 % (11.6-15.6); RETICULOCYTES 1.23 % (0.5-1.5); WHITE BLOOD COUNT 5.6 K/mm3 (4.0-10.0)
[2017-09-01 08:39] LABS: ANION GAP 9 (8-16); BLOOD UREA NITROGEN 11 mg/dL (7-18); CALCIUM 8.6 mg/dL (8.5-10.1); CHLORIDE 102 mmol/L (98-107); CO2 26 mmol/L (21-32); CREATININE 0.6 mg/dL (0.55-1.02); GLUCOSE,RANDOM 73 mg/dL (74-106); SODIUM 137 mmol/L (136-145)
--- NOTE | 2017-09-01 09:44 | PN ---
Progress Note, Physician History of Present Illness: Pt w/o fever, chills. Pt with right ankle pain is controlled by medication. Pt w/o SOB, CP, palp, abd pain. Pt had BM. - Current Medication List Current Medications: Active Medications Acetaminophen (Tylenol -) 650 mg PO TID [facility] Last Admin: 09/01/17 06:09 Dose: 650 mg Amlodipine Besylate (Norvasc -) 2.5 mg PO DAILY [facility] Last Admin: 08/31/17 11:10 Dose: Not Given Celecoxib (Celebrex -) 100 mg PO BID [facility] Last Admin: 08/31/17 21:58 Dose: 100 mg Collagenase (Santyl -) 1 applic TP DAILY [facility] Last Admin: 08/31/17 16:37 Dose: 1 applic Docusate Sodium (Colace Liquid -) 300 mg PO DAILY [facility] Last Admin: 08/31/17 11:08 Dose: Not Given Gabapentin (Neurontin -) 400 mg PO BID [facility] Last Admin: 08/31/17 22:00 Dose: 400 mg Heparin Sodium (Porcine) (Heparin -) 5,000 unit SQ BID [facility] Last Admin: 08/31/17 21:59 Dose: 5,000 unit Lactobacillus Acidophilus (Bacid -) 2 tab PO DAILY [facility] Last Admin: 08/31/17 11:06 Dose: 2 tab Morphine Sulfate (Morphine Injection -) 4 mg IVPUSH Q4H PRN PRN Reason: PAIN LEVEL 4 - 6 Last Admin: 09/01/17 06:16 Dose: 4 mg Multivitamins/Minerals/Vitamin C (Tab-A-Vit -) 1 tab PO DAILY [facility] Last Admin: 08/31/17 11:07 Dose: 1 tab Ondansetron HCl (Zofran -) 4 mg PO TID [facility] Last Admin: 09/01/17 06:10 Dose: 4 mg Ranitidine HCl (Zantac -) 150 mg PO DAILY [facility] Last Admin: 08/31/17 11:06 Dose: 150 mg Senna (Senna -) 2 tab PO HS [facility] Last Admin: 08/31/17 22:01 Dose: Not Given Simethicone (Mylicon -) 160 mg PO QID [facility] Last Admin: 08/31/17 22:00 Dose: 80 mg - Objective Vital Signs: Vital Signs Temperature 97.6 F 09/01/17 06:00 Pulse Rate 65 09/01/17 06:00 Respiratory Rate 18 09/01/17 06:00 Blood Pressure 131/65 09/01/17 06:00 O2 Sat by Pulse Oximetry (%) 95 08/31/17 21:00 Constitutional: Yes: No Distress, Calm Cardiovascular: Yes: Regular Rate and Rhythm, S1, S2 Respiratory: Yes: Regular, CTA Bilaterally, Other (coarse at bases) Gastrointestinal: Yes: Normal Bowel Sounds, Soft. No: Tenderness Extremities: Yes: Other (clean right ankle dressing) Edema: No Neurological: Yes: Alert, Oriented Labs: CBC, BMP 09/01/17 07:30 09/01/17 07:30 - ....Imaging MRI: Report Reviewed Problem List - Problems (1) Ulcer of right ankle Code(s): L97.319 - NON-PRESSURE CHRONIC ULCER OF RIGHT ANKLE WITH UNSP SEVERITY (2) Bilateral leg ulcer Code(s): L97.919 - NON-PRS CHRONIC ULC UNSP PRT OF R LOW LEG W UNSP SEVERITY; L97.929 - NON-PRS CHRONIC ULC UNSP PRT OF L LOW LEG W UNSP SEVERITY (3) PVD (peripheral vascular disease) Code(s): I73.9 - PERIPHERAL VASCULAR DISEASE, UNSPECIFIED (4) CVA (cerebral vascular accident) Code(s): I63.9 - CEREBRAL INFARCTION, UNSPECIFIED (5) Hypertension Code(s): I10 - ESSENTIAL (PRIMARY) HYPERTENSION (6) Anemia Code(s): D64.9 - ANEMIA, UNSPECIFIED (7) Osteomyelitis Code(s): M86.9 - OSTEOMYELITIS, UNSPECIFIED Assessment/Plan MRI of the foot is suggesting OM. Likely pt needs bone biopsy. ID consult, Vasc SX. Podiatry consults appreciated. Case was d/w pt's nurse and CM. AM labs
[2017-09-01] MEDS ORDERED: PT OWN MED DRAWER 7, Y5N ONE ×2 (10:42→21:01)
[2017-09-01] MEDS: RANITIDINE HCL 150 MG TABLET (FP) PO SCH (10:57)
[2017-09-01] MEDS: MULTIVITAMINS (DAILY MVI) TABLET (FP) PO SCH (10:57)
[2017-09-01] MEDS: HEPARIN NA (PORCINE) 5,000 UNITS/ML 1ML VIAL SQ SCH ×2 (10:58→21:57)
[2017-09-01] MEDS: GABAPENTIN 400 MG CAPSULE (FP) PO SCH ×2 (10:58→21:56)
[2017-09-01] MEDS: amLODIPine BESYLATE 2.5 MG TABLET (FP) PO SCH ×2 (10:58→11:08)
[2017-09-01] MEDS: SIMETHICONE 80 MG TAB.CHEW (FP) PO SCH ×4 (10:58→21:57)
[2017-09-01] MEDS: LACTOBACILLUS ACIDOPHILUS 1 EACH TAB (FP) PO SCH (10:58)
[2017-09-01] MEDS: CELECOXIB 100 MG CAPSULE PO SCH ×2 (10:59→21:56)
[2017-09-01] MEDS: DOCUSATE NA 100 MG/10 ML UNIT-DOSE CUPS PO SCH (11:10)
--- NOTE | 2017-09-01 12:32 | PN ---
Progress Note (short form) - Note Progress Note: Podiatry: Seen/evaluated at bedside, NAD. Pain persistent to R anterior foot/ankle. Denies F/V/N/C/SOB/CP. AFebrile, VSS. SUHAIL: R foot: dorsolateral rearfoot pressure ulcer stage 4 with exposed bone, exposed extensor tendon, surrounding granular tissue, no purulence, no fluctuance. Moderate periwound erythema, no ascending cellulitis, no SOIs R foot MRI: bone marrow edema lateral talar body suspicious for osteomyelitis. Subluxed talus. Imp: 87 year old F with R foot pressure ulcer stage 4, evaluate for osteomyelitis 1. C/w santyl DSD R foot 2. Offloading measures 3. Will need bone biopsy given (+) MRI findings. Plan for OR debridement and bone biopsy Tuesday. Given subluxed talus, really needs Orthopedic consult as outpatient for external fixation frame to realign rearfoot/ankle. 4. Will follow Paola Shafer DPM
[2017-09-01] MEDS: COLLAGENASE CLOSTRIDIUM HIST. 30 GRAMS TUBE TP SCH (13:44)
--- NOTE | 2017-09-01 17:24 | PN ---
Progress Note (short form) - Note Progress Note: alert nad wounds on legs are quite painful Vital Signs Period Temp Pulse Resp BP Sys/Beaver Pulse Ox Last 24 Hr 97.6 F-98.9 F 65-81 18-20 112-143/56-75 94-95 cor-rrr lungs clear abd soft,nt ext wounds examined- right ankle wound no erythema no drainage left calf wound mri probable osteo CBC, BMP 09/01/17 07:30 09/01/17 07:30 Microbiology 08/29/17 16:10 Ankle - Right Gram Stain - Final 08/29/17 16:10 Ankle - Right Wound Culture - Preliminary Staphylococcus Latex Coag Pos Diphtheroid/Corynebacterium 08/29/17 19:05 Blood - Peripheral Venous Blood Culture - Preliminary NO GROWTH OBTAINED AFTER 48 HOURS, INCUBATION TO CONTINUE FOR 3 DAYS. 08/29/17 18:40 Blood - Peripheral Venous Blood Culture - Preliminary NO GROWTH OBTAINED AFTER 48 HOURS, INCUBATION TO CONTINUE FOR 3 DAYS. a/p osteomyelitis failed one month of po bactrim Bone biopsy (failed bactrim) ?need for debridement podiatry consult noted for bone biopsy Tuesday hold antibiotics for now- hopefully biopsy off antibiotics Problem List - Problems (1) Osteomyelitis Code(s): M86.9 - OSTEOMYELITIS, UNSPECIFIED (2) Ulcer of right ankle Code(s): L97.319 - NON-PRESSURE CHRONIC ULCER OF RIGHT ANKLE WITH UNSP SEVERITY
[2017-09-01] MEDS: SENNOSIDES 8.6MG TABLET (FP) PO SCH (22:03)
[2017-09-02] MEDS: morphine CARPU-JECT 10 MG/1 ML DISP.SYRIN IVPUSH PRN ×4 (06:38→21:42)
[2017-09-02] MEDS: ONDANSETRON 4 MG TABLET PO SCH ×3 (06:38→21:42)
[2017-09-02] MEDS: ACETAMINOPHEN 325 MG TABLET (FP) PO SCH ×3 (06:38→21:41)
[2017-09-02 08:03] LABS: ANION GAP 6 (8-16); BLOOD UREA NITROGEN 10 mg/dL (7-18); CALCIUM 8.1 mg/dL (8.5-10.1); CHLORIDE 101 mmol/L (98-107); CO2 28 mmol/L (21-32); CREATININE 0.5 mg/dL (0.55-1.02); GLUCOSE,RANDOM 85 mg/dL (74-106); POTASSIUM 4.1 mmol/L (3.5-5.1); SODIUM 135 mmol/L (136-145)
[2017-09-02 08:26] LABS: HEMATOCRIT 30.1 % (32.4-45.2); HEMOGLOBIN 9.7 GM/dL (10.7-15.3); MCHC 32.2 g/dl (32.0-36.0); MEAN CELL VOLUME 96.3 fl (80-96); MEAN PLT VOLUME 7.7 fl (7.5-11.1); PLATELET COUNT 303 K/MM3 (134-434); RBC 3.12 M/mm3 (3.60-5.2); WHITE BLOOD COUNT 5.8 K/mm3 (4.0-10.0)
--- NOTE | 2017-09-02 08:59 | PN ---
Progress Note, Physician History of Present Illness: Pt is upset this AM, complaining to me that she had foot pain and I didn't answer to nurse calls yesterday. Pt told me that is "disgusted by my attitude" and doesn't wants to talk to me and is refusing to be seen. - Current Medication List Current Medications: Active Medications Acetaminophen (Tylenol -) 650 mg PO TID [facility] Last Admin: 09/02/17 06:38 Dose: 650 mg Amlodipine Besylate (Norvasc -) 2.5 mg PO DAILY [facility] Last Admin: 09/01/17 11:08 Dose: Not Given Celecoxib (Celebrex -) 100 mg PO BID [facility] Last Admin: 09/01/17 21:56 Dose: 100 mg Collagenase (Santyl -) 1 applic TP DAILY [facility] Last Admin: 09/01/17 13:44 Dose: 1 applic Docusate Sodium (Colace Liquid -) 300 mg PO DAILY [facility] Last Admin: 09/01/17 11:10 Dose: Not Given Gabapentin (Neurontin -) 400 mg PO BID [facility] Last Admin: 09/01/17 21:56 Dose: 400 mg Heparin Sodium (Porcine) (Heparin -) 5,000 unit SQ BID [facility] Last Admin: 09/01/17 21:57 Dose: 5,000 unit Lactobacillus Acidophilus (Bacid -) 2 tab PO DAILY [facility] Last Admin: 09/01/17 10:58 Dose: 2 tab Morphine Sulfate (Morphine Injection -) 4 mg IVPUSH Q4H PRN PRN Reason: PAIN LEVEL 4 - 6 Last Admin: 09/02/17 06:38 Dose: 4 mg Multivitamins/Minerals/Vitamin C (Tab-A-Vit -) 1 tab PO DAILY [facility] Last Admin: 09/01/17 10:57 Dose: 1 tab Ondansetron HCl (Zofran -) 4 mg PO TID [facility] Last Admin: 09/02/17 06:38 Dose: 4 mg Ranitidine HCl (Zantac -) 150 mg PO DAILY [facility] Last Admin: 09/01/17 10:57 Dose: 150 mg Senna (Senna -) 2 tab PO HS [facility] Last Admin: 09/01/17 22:03 Dose: Not Given Simethicone (Mylicon -) 160 mg PO QID [facility] Last Admin: 09/01/17 21:57 Dose: 80 mg - Objective Vital Signs: Vital Signs Temperature 98.5 F 09/01/17 22:07 Pulse Rate 68 09/01/17 22:07 Respiratory Rate 18 09/01/17 22:07 Blood Pressure 119/60 09/01/17 22:07 O2 Sat by Pulse Oximetry (%) 95 09/01/17 21:00 Labs: CBC, BMP 09/01/17 07:30 09/02/17 07:00 Problem List - Problems (1) Ulcer of right ankle Code(s): L97.319 - NON-PRESSURE CHRONIC ULCER OF RIGHT ANKLE WITH UNSP SEVERITY (2) Bilateral leg ulcer Code(s): L97.919 - NON-PRS CHRONIC ULC UNSP PRT OF R LOW LEG W UNSP SEVERITY; L97.929 - NON-PRS CHRONIC ULC UNSP PRT OF L LOW LEG W UNSP SEVERITY (3) PVD (peripheral vascular disease) Code(s): I73.9 - PERIPHERAL VASCULAR DISEASE, UNSPECIFIED (4) CVA (cerebral vascular accident) Code(s): I63.9 - CEREBRAL INFARCTION, UNSPECIFIED (5) Hypertension Code(s): I10 - ESSENTIAL (PRIMARY) HYPERTENSION Assessment/Plan ID, Vasc SX, Podiatry consults appreciated. Pending foot Bx. ECHO report is pending; unclear if pt needs local or general anesthesia. Probable pt would need PICC line and terminal gauger abtx treatment. I spoke with pt's today nurse, [facility] nursing fermenting [employer] supervisor and CM about pt's complains; none are aware of pt c/o uncontrolled pain, about nurse trying to get in touch with me yesterday or last night. I called pt's health coordinator and left message to call me back (my office phone # was provided); pt's nurse is aware. AM labs
[2017-09-02] MEDS: MULTIVITAMINS (DAILY MVI) TABLET (FP) PO SCH (10:42)
[2017-09-02] MEDS: LACTOBACILLUS ACIDOPHILUS 1 EACH TAB (FP) PO SCH (10:42)
[2017-09-02] MEDS: HEPARIN NA (PORCINE) 5,000 UNITS/ML 1ML VIAL SQ SCH ×2 (10:43→21:42)
[2017-09-02] MEDS: SIMETHICONE 80 MG TAB.CHEW (FP) PO SCH ×5 (10:43→22:30)
[2017-09-02] MEDS: amLODIPine BESYLATE 2.5 MG TABLET (FP) PO SCH (10:43)
[2017-09-02] MEDS: RANITIDINE HCL 150 MG TABLET (FP) PO SCH (10:43)
[2017-09-02] MEDS: GABAPENTIN 400 MG CAPSULE (FP) PO SCH ×2 (10:50→21:42)
[2017-09-02] MEDS: CELECOXIB 100 MG CAPSULE PO SCH ×2 (10:50→21:42)
[2017-09-02] MEDS: DOCUSATE NA 100 MG/10 ML UNIT-DOSE CUPS PO SCH (10:51)
[2017-09-02] MEDS: COLLAGENASE CLOSTRIDIUM HIST. 30 GRAMS TUBE TP SCH (15:44)
[2017-09-02] MEDS: SENNOSIDES 8.6MG TABLET (FP) PO SCH (21:42)
[2017-09-03] MEDS: ONDANSETRON 4 MG TABLET PO SCH ×3 (06:39→22:11)
[2017-09-03] MEDS: ACETAMINOPHEN 325 MG TABLET (FP) PO SCH ×3 (06:39→22:11)
[2017-09-03 08:07] LABS: SERUM IRON SATURATION 38 % (15-55); TOTAL IRON BINDING CAPACITY 139 ug/dL (250-450); UIBC 86 ug/dL (118-369)
[2017-09-03 08:51] LABS: HEMATOCRIT 32.1 % (32.4-45.2); HEMOGLOBIN 10.4 GM/dL (10.7-15.3); MCH 31.1 pg (25.7-33.7); MCHC 32.6 g/dl (32.0-36.0); MEAN CELL VOLUME 95.6 fl (80-96); MEAN PLT VOLUME 7.7 fl (7.5-11.1); PLATELET COUNT 281 K/MM3 (134-434); RBC 3.35 M/mm3 (3.60-5.2); RDW 13.6 % (11.6-15.6); WHITE BLOOD COUNT 6.4 K/mm3 (4.0-10.0)
[2017-09-03 09:32] LABS: ALK PHOS 181 U/L (45-117); ANION GAP 10 (8-16); BILIRUBIN,TOTAL 0.2 mg/dL (0.2-1.0); BLOOD UREA NITROGEN 9 mg/dL (7-18); CALCIUM 8.4 mg/dL (8.5-10.1); CHLORIDE 101 mmol/L (98-107); CO2 27 mmol/L (21-32); CREATININE 0.5 mg/dL (0.55-1.02); GLUCOSE,RANDOM 82 mg/dL (74-106); POTASSIUM 4.2 mmol/L (3.5-5.1); SGOT/AST 25 U/L (15-37); SGPT/ALT 18 U/L (12-78); SODIUM 138 mmol/L (136-145); TOT PROT 6.1 g/dl (6.4-8.2)
[2017-09-03] MEDS ORDERED: PT OWN MED DRAWER 7, Y5N ONE ×4 (11:01→22:10)
[2017-09-03] MEDS: LACTOBACILLUS ACIDOPHILUS 1 EACH TAB (FP) PO SCH (11:07)
[2017-09-03] MEDS: CELECOXIB 100 MG CAPSULE PO SCH ×2 (11:08→22:11)
[2017-09-03] MEDS: GABAPENTIN 400 MG CAPSULE (FP) PO SCH ×2 (11:08→22:11)
[2017-09-03] MEDS: amLODIPine BESYLATE 2.5 MG TABLET (FP) PO SCH (11:08)
[2017-09-03] MEDS: SIMETHICONE 80 MG TAB.CHEW (FP) PO SCH ×4 (11:09→22:11)
[2017-09-03] MEDS: MULTIVITAMINS (DAILY MVI) TABLET (FP) PO SCH (11:09)
[2017-09-03] MEDS: RANITIDINE HCL 150 MG TABLET (FP) PO SCH (11:10)
[2017-09-03] MEDS: HEPARIN NA (PORCINE) 5,000 UNITS/ML 1ML VIAL SQ SCH ×2 (11:10→22:15)
[2017-09-03] MEDS: morphine CARPU-JECT 10 MG/1 ML DISP.SYRIN IVPUSH PRN ×3 (11:11→20:07)
[2017-09-03] MEDS: DOCUSATE NA 100 MG/10 ML UNIT-DOSE CUPS PO SCH (11:13)
--- NOTE | 2017-09-03 13:06 | PN ---
Progress Note, Physician History of Present Illness: Pt w/o right ankle pain, fever, chills, SOB, CP, abd pain, diarrhea, constipation. - Current Medication List Current Medications: Active Medications Acetaminophen (Tylenol -) 650 mg PO TID [facility] Last Admin: 09/03/17 06:39 Dose: 650 mg Amlodipine Besylate (Norvasc -) 2.5 mg PO DAILY [facility] Last Admin: 09/03/17 11:08 Dose: 2.5 mg Celecoxib (Celebrex -) 100 mg PO BID [facility] Last Admin: 09/03/17 11:08 Dose: 100 mg Collagenase (Santyl -) 1 applic TP DAILY [facility] Last Admin: 09/02/17 15:44 Dose: 1 applic Docusate Sodium (Colace Liquid -) 300 mg PO DAILY [facility] Last Admin: 09/03/17 11:13 Dose: Not Given Gabapentin (Neurontin -) 400 mg PO BID [facility] Last Admin: 09/03/17 11:08 Dose: 400 mg Heparin Sodium (Porcine) (Heparin -) 5,000 unit SQ BID [facility] Last Admin: 09/03/17 11:10 Dose: 5,000 unit Lactobacillus Acidophilus (Bacid -) 2 tab PO DAILY [facility] Last Admin: 09/03/17 11:07 Dose: 2 tab Morphine Sulfate (Morphine Injection -) 4 mg IVPUSH Q4H PRN PRN Reason: PAIN LEVEL 4 - 6 Last Admin: 09/03/17 11:11 Dose: 4 mg Multivitamins/Minerals/Vitamin C (Tab-A-Vit -) 1 tab PO DAILY [facility] Last Admin: 09/03/17 11:09 Dose: 1 tab Ondansetron HCl (Zofran -) 4 mg PO TID [facility] Last Admin: 09/03/17 06:39 Dose: 4 mg Ranitidine HCl (Zantac -) 150 mg PO DAILY [facility] Last Admin: 09/03/17 11:10 Dose: 150 mg Senna (Senna -) 2 tab PO HS [facility] Last Admin: 09/02/17 21:42 Dose: 2 tab Simethicone (Mylicon -) 160 mg PO QID [facility] Last Admin: 09/03/17 11:09 Dose: 80 mg - Objective Vital Signs: Vital Signs Temperature 98 F 09/03/17 11:28 Pulse Rate 75 09/03/17 11:28 Respiratory Rate 18 09/03/17 11:28 Blood Pressure 150/70 09/03/17 11:28 O2 Sat by Pulse Oximetry (%) 95 09/03/17 03:58 Constitutional: Yes: No Distress, Calm Cardiovascular: Yes: Regular Rate and Rhythm, S1, S2 Respiratory: Yes: Regular, CTA Bilaterally, Other (coarse BS) Gastrointestinal: Yes: Normal Bowel Sounds, Soft. No: Tenderness Edema: No Neurological: Yes: Alert, Oriented Labs: CBC, BMP 09/03/17 08:00 09/03/17 08:00 Problem List - Problems (1) Ulcer of right ankle Code(s): L97.319 - NON-PRESSURE CHRONIC ULCER OF RIGHT ANKLE WITH UNSP SEVERITY (2) Bilateral leg ulcer Code(s): L97.919 - NON-PRS CHRONIC ULC UNSP PRT OF R LOW LEG W UNSP SEVERITY; L97.929 - NON-PRS CHRONIC ULC UNSP PRT OF L LOW LEG W UNSP SEVERITY (3) PVD (peripheral vascular disease) Code(s): I73.9 - PERIPHERAL VASCULAR DISEASE, UNSPECIFIED (4) CVA (cerebral vascular accident) Code(s): I63.9 - CEREBRAL INFARCTION, UNSPECIFIED (5) Hypertension Code(s): I10 - ESSENTIAL (PRIMARY) HYPERTENSION (6) Hypoalbuminemia Code(s): E88.09 - OTH DISORDERS OF PLASMA-PROTEIN METABOLISM, NEC (7) Anemia Code(s): D64.9 - ANEMIA, UNSPECIFIED (8) Osteomyelitis Code(s): M86.9 - OSTEOMYELITIS, UNSPECIFIED Assessment/Plan ID, Vasc SX, Podiatry consults appreciated. Pending foot Bx on Tuesday. ECHO report was reviewed Probable pt would need PICC line and exterminator helper termite abtx treatment. Case was reviewed with pt's nurse
[2017-09-03] MEDS: COLLAGENASE CLOSTRIDIUM HIST. 30 GRAMS TUBE TP SCH (14:50)
[2017-09-03] MEDS: SENNOSIDES 8.6MG TABLET (FP) PO SCH (22:11)
[2017-09-04] MEDS: morphine CARPU-JECT 10 MG/1 ML DISP.SYRIN IVPUSH PRN ×3 (00:35→12:34)
[2017-09-04] MEDS: ACETAMINOPHEN 325 MG TABLET (FP) PO SCH ×3 (06:26→22:01)
[2017-09-04] MEDS: ONDANSETRON 4 MG TABLET PO SCH ×3 (06:26→22:02)
[2017-09-04] MEDS ORDERED: PT OWN MED DRAWER 7, Y5N ONE ×3 (10:40→21:58)
[2017-09-04] MEDS: RANITIDINE HCL 150 MG TABLET (FP) PO SCH (10:44)
[2017-09-04] MEDS: DOCUSATE NA 100 MG/10 ML UNIT-DOSE CUPS PO SCH (10:44)
[2017-09-04] MEDS: HEPARIN NA (PORCINE) 5,000 UNITS/ML 1ML VIAL SQ SCH ×2 (10:44→22:00)
[2017-09-04] MEDS: LACTOBACILLUS ACIDOPHILUS 1 EACH TAB (FP) PO SCH (10:45)
[2017-09-04] MEDS: amLODIPine BESYLATE 2.5 MG TABLET (FP) PO SCH (10:45)
[2017-09-04] MEDS: SIMETHICONE 80 MG TAB.CHEW (FP) PO SCH ×4 (10:45→22:01)
[2017-09-04] MEDS: GABAPENTIN 400 MG CAPSULE (FP) PO SCH ×2 (10:45→22:01)
[2017-09-04] MEDS: MULTIVITAMINS (DAILY MVI) TABLET (FP) PO SCH (10:45)
[2017-09-04] MEDS: CELECOXIB 100 MG CAPSULE PO SCH ×2 (10:46→22:01)
[2017-09-04] MEDS: COLLAGENASE CLOSTRIDIUM HIST. 30 GRAMS TUBE TP SCH (10:48)
--- NOTE | 2017-09-04 13:38 | PN ---
Progress Note, Physician History of Present Illness: Pt w right ankle pain controlled by pain medication. Pt with dry cough. Pt w/o fever, chills, SOB, CP, abd pain, diarrhea, constipation. - Current Medication List Current Medications: Active Medications Acetaminophen (Tylenol -) 650 mg PO TID [facility] Last Admin: 09/04/17 06:26 Dose: 650 mg Amlodipine Besylate (Norvasc -) 2.5 mg PO DAILY [facility] Last Admin: 09/04/17 10:45 Dose: 2.5 mg Celecoxib (Celebrex -) 100 mg PO BID [facility] Last Admin: 09/04/17 10:46 Dose: 100 mg Collagenase (Santyl -) 1 applic TP DAILY [facility] Last Admin: 09/04/17 10:48 Dose: 1 applic Docusate Sodium (Colace Liquid -) 300 mg PO DAILY [facility] Last Admin: 09/04/17 10:44 Dose: 300 mg Gabapentin (Neurontin -) 400 mg PO BID [facility] Last Admin: 09/04/17 10:45 Dose: 400 mg Heparin Sodium (Porcine) (Heparin -) 5,000 unit SQ BID [facility] Last Admin: 09/04/17 10:44 Dose: 5,000 unit Lactobacillus Acidophilus (Bacid -) 2 tab PO DAILY [facility] Last Admin: 09/04/17 10:45 Dose: 2 tab Morphine Sulfate (Morphine Injection -) 4 mg IVPUSH Q4H PRN PRN Reason: PAIN LEVEL 4 - 6 Last Admin: 09/04/17 12:34 Dose: 4 mg Multivitamins/Minerals/Vitamin C (Tab-A-Vit -) 1 tab PO DAILY [facility] Last Admin: 09/04/17 10:45 Dose: 1 tab Ondansetron HCl (Zofran -) 4 mg PO TID [facility] Last Admin: 09/04/17 06:26 Dose: 4 mg Ranitidine HCl (Zantac -) 150 mg PO DAILY [facility] Last Admin: 09/04/17 10:44 Dose: 150 mg Senna (Senna -) 2 tab PO HS [facility] Last Admin: 09/03/17 22:11 Dose: 2 tab Simethicone (Mylicon -) 160 mg PO QID [facility] Last Admin: 09/04/17 10:45 Dose: 160 mg - Objective Vital Signs: Vital Signs Temperature 98.4 F 09/04/17 08:50 Pulse Rate 82 09/04/17 08:50 Respiratory Rate 20 09/04/17 08:50 Blood Pressure 133/77 09/04/17 08:50 O2 Sat by Pulse Oximetry (%) 95 09/03/17 21:00 Constitutional: Yes: No Distress, Calm Cardiovascular: Yes: Regular Rate and Rhythm, S1, S2 Respiratory: Yes: Regular, Rales (scattered, bilaterally) Gastrointestinal: Yes: Normal Bowel Sounds, Soft. No: Tenderness Extremities: Yes: Other (clean right ankle dressing) Edema: No Labs: CBC, BMP 09/03/17 08:00 09/03/17 08:00 Problem List - Problems (1) Ulcer of right ankle Code(s): L97.319 - NON-PRESSURE CHRONIC ULCER OF RIGHT ANKLE WITH UNSP SEVERITY (2) Bilateral leg ulcer Code(s): L97.919 - NON-PRS CHRONIC ULC UNSP PRT OF R LOW LEG W UNSP SEVERITY; L97.929 - NON-PRS CHRONIC ULC UNSP PRT OF L LOW LEG W UNSP SEVERITY (3) PVD (peripheral vascular disease) Code(s): I73.9 - PERIPHERAL VASCULAR DISEASE, UNSPECIFIED (4) CVA (cerebral vascular accident) Code(s): I63.9 - CEREBRAL INFARCTION, UNSPECIFIED (5) Hypertension Code(s): I10 - ESSENTIAL (PRIMARY) HYPERTENSION (6) Hypoalbuminemia Code(s): E88.09 - OTH DISORDERS OF PLASMA-PROTEIN METABOLISM, NEC (7) Anemia Code(s): D64.9 - ANEMIA, UNSPECIFIED (8) Osteomyelitis Code(s): M86.9 - OSTEOMYELITIS, UNSPECIFIED (9) Cough Code(s): R05 - COUGH Assessment/Plan ID, Vasc SX, Podiatry consults appreciated. Pending foot Bx on Tuesday. ECHO report was reviewed. Probable pt would need PICC line and alf abtx treatment. CXR Pulmonary consult for dry cough evaluation, in a patient w/o Hx/o smoking/ COPD / Emphysema/ Asthma/ not on ACEI/ not on ARB. Case was reviewed with pt's nurse
--- NOTE | 2017-09-04 13:50 | PN ---
Progress Note (short form) - Note Progress Note: Podiatry: Seen/evaluated at bedside, NAD. Persistent pain to R foot. Denies F/V/N/C/SOB/ CP. Afebrile, VSS. Off IV abx now in anticipation of biopsy. SUHAIL: R foot: dorsal midfoot pressure ulcer stage 4 with exposed talus, fibrotic rim, no purulent drainage, no fluctuance, no ascending cellulitis, no signs of acute infection. Moderate periwound erythema. Significant tenderness to palpation. Fixed equinus of foot at level of rearfoot. WBC: 6.4 Wound Cx: MRSA MRI R foot: focal BME anterolateral talar dome suggestive of osteomyelitis Imp: 87 year old F with R foot pressure ulcer stage 4 and osteomyelitis 1. NPO at midnight. For OR debridement and bone biopsy tomorrow early PM. Risks, benefits alternatives to surgery discussed at length. 2. Will follow. Paola Shafer DPM
[2017-09-04] MEDS ORDERED: HYDROmorphone HCL 2 MG TABLET PO PRN ×2 (14:30→14:36)
[2017-09-04] MEDS: HYDROmorphone HCL 2 MG TABLET PO PRN (16:34)
[2017-09-04] MEDS: SENNOSIDES 8.6MG TABLET (FP) PO SCH (22:01)
[2017-09-05] MEDS ORDERED: DEXTROSE 5%-NORMAL SALINE 1,000 ML IV SCH (00:01)
[2017-09-05] MEDS: HYDROmorphone HCL 2 MG TABLET PO PRN ×4 (00:03→22:31)
[2017-09-05] MEDS: ONDANSETRON 4 MG TABLET PO SCH ×3 (05:43→22:12)
[2017-09-05] MEDS: ACETAMINOPHEN 325 MG TABLET (FP) PO SCH ×3 (05:43→22:10)
[2017-09-05 08:11] LABS: HEMATOCRIT 31.3 % (32.4-45.2); HEMOGLOBIN 10.2 GM/dL (10.7-15.3); MCH 31.1 pg (25.7-33.7); MCHC 32.5 g/dl (32.0-36.0); MEAN CELL VOLUME 95.8 fl (80-96); MEAN PLT VOLUME 7.7 fl (7.5-11.1); PLATELET COUNT 275 K/MM3 (134-434); RBC 3.27 M/mm3 (3.60-5.2); RDW 13.6 % (11.6-15.6); WHITE BLOOD COUNT 8.7 K/mm3 (4.0-10.0)
[2017-09-05 08:16] LABS: INR 1.16 (0.82-1.09); PROTHROMBIN TIME (PATIENT) 13.1 SEC (9.98-11.88)
[2017-09-05 08:22] LABS: ANION GAP 7 (8-16); BLOOD UREA NITROGEN 9 mg/dL (7-18); CALCIUM 8.1 mg/dL (8.5-10.1); CHLORIDE 99 mmol/L (98-107); CO2 29 mmol/L (21-32); CREATININE 0.5 mg/dL (0.55-1.02); GLUCOSE,RANDOM 101 mg/dL (74-106); POTASSIUM 4.3 mmol/L (3.5-5.1); SGOT/AST 20 U/L (15-37); SGPT/ALT 17 U/L (12-78); SODIUM 135 mmol/L (136-145)
[2017-09-05 08:25] LABS: ALK PHOS 171 U/L (45-117); BILIRUBIN,TOTAL 0.4 mg/dL (0.2-1.0)
[2017-09-05] MEDS: MULTIVITAMINS (DAILY MVI) TABLET (FP) PO SCH ×2 (10:00→18:19)
[2017-09-05] MEDS: RANITIDINE HCL 150 MG TABLET (FP) PO SCH ×2 (10:00→18:19)
[2017-09-05] MEDS: LACTOBACILLUS ACIDOPHILUS 1 EACH TAB (FP) PO SCH ×2 (10:00→18:19)
[2017-09-05] MEDS: DOCUSATE NA 100 MG/10 ML UNIT-DOSE CUPS PO SCH (10:00)
[2017-09-05] MEDS: GABAPENTIN 400 MG CAPSULE (FP) PO SCH ×2 (10:00→22:11)
[2017-09-05] MEDS: COLLAGENASE CLOSTRIDIUM HIST. 30 GRAMS TUBE TP SCH (10:00)
[2017-09-05] MEDS: CELECOXIB 100 MG CAPSULE PO SCH ×2 (10:00→22:12)
[2017-09-05] MEDS: SIMETHICONE 80 MG TAB.CHEW (FP) PO SCH ×4 (10:00→22:10)
[2017-09-05] MEDS: HEPARIN NA (PORCINE) 5,000 UNITS/ML 1ML VIAL SQ SCH ×2 (10:02→22:10)
[2017-09-05] MEDS ORDERED: PT OWN MED DRAWER 7, Y5N ONE ×2 (10:02→11:33)
[2017-09-05] MEDS: amLODIPine BESYLATE 2.5 MG TABLET (FP) PO SCH (10:05)
--- NOTE | 2017-09-05 13:45 | PN ---
Progress Note (short form) - Note Progress Note: alert nad cough no fever Vital Signs Period Temp Pulse Resp BP Sys/Beaver Pulse Ox Last 24 Hr 97.6 F-99.2 F 69-83 18-20 99-157/62-76 95-95 cor-rrr lungs scattered rhonchi abd soft,nt ext foot bandaged cxray no infiltrate mri probable osteo CBC, BMP 09/05/17 07:15 09/05/17 07:15 Microbiology 08/29/17 19:05 Blood - Peripheral Venous Blood Culture - Final NO GROWTH AFTER 5 DAYS INCUBATION 08/29/17 18:40 Blood - Peripheral Venous Blood Culture - Final NO GROWTH AFTER 5 DAYS INCUBATION 08/29/17 16:10 Ankle - Right Gram Stain - Final 08/29/17 16:10 Ankle - Right Wound Culture - Preliminary Mr S Aureus Diphtheroid/Corynebacterium a/p osteomyelitis failed one month of po bactrim Bone biopsy (failed bactrim) ?need for debridement podiatry consult noted for bone biopsy will start vancomycin after bone biopsy Problem List - Problems (1) Osteomyelitis Code(s): M86.9 - OSTEOMYELITIS, UNSPECIFIED (2) Ulcer of right ankle Code(s): L97.319 - NON-PRESSURE CHRONIC ULCER OF RIGHT ANKLE WITH UNSP SEVERITY
--- NOTE | 2017-09-05 13:49 | CON.PULM ---
Consult Consult Specialty:: PULMONARY Referred by:: Dr. Zaragoza Reason for Consultation:: cough - History of Present Illness Chief Complaint: foot ulcer History of Present Illness: 87yo female with h/o PAD, LE ulcers who was sent by wound clinic for probable right foot/ankle ulcer requiring antibiotics. During the hospitalization, she has developed a cough productive of clear sputum. She denies any shortness of breath, chest pain or palpitations. No fevers, chills or sweats. No fevers recorded during this admission. CXR has been unremarkable. Echocardiogram also unremarkable. She is a never smoker, denies history of asthma or COPD. No 2nd hand smoke exposure. Worked as a nurse in the past. - History Source History Provided By: Patient, Medical Record Limitations to Obtaining History: No Limitations - Past Medical History BELL SPINNER: Yes: CVA Musculoskeletal: Yes: Osteoarthritis (multiple sites, sever, on Dilaudid PO) Dermatology: Yes: Other - Alcohol/Substance Use Hx Alcohol Use: No - Smoking History Smoking history: Never smoked Have you smoked in the past 12 months: No Home Medications - Allergies Allergies/Adverse Reactions: Allergies Allergy/AdvReac Type Severity Reaction Status Date / Time No Known Allergies Allergy Verified 08/29/17 13:26 - Home Medications Home Medications: Ambulatory Orders Gabapentin [Neurontin -] 400 mg PO BID 01/21/14 Sennosides [Senna -] 1 mg PO HS 01/21/14 Simethicone [Gas Relief] 2 tab PO QID 01/21/14 Acetaminophen [Tylenol] 650 mg PO TID 08/29/17 Amlodipine Besylate [Norvasc -] 2.5 mg PO DAILY 08/29/17 Ascorbate Calcium [Vitamin C] 500 mg PO DAILY 08/29/17 Bacitracin - [Bacitracin Topical Ointment -] 1 applic TP DAILY 08/29/17 Calcium Polycarbophil [Fiber Laxative] 625 mg PO HS 08/29/17 Celecoxib [Celebrex] 100 mg PO BID 08/29/17 Cholecalciferol (Vitamin D3) [Vitamin D3] 1,000 unit PO DAILY 08/29/17 Collagenase Clostridium Hist. [Santyl] 1 applic TP DAILY 08/29/17 Cyanocobalamin (Vitamin B-12) [Vitamin B-12] 1,000 mcg PO DAILY 08/29/17 Docusate Liquid [Colace Liquid -] 300 mg PO HS 08/29/17 Heparin Sodium,Porcine/Pf [Heparin Sod 5,000 Unit/ 0.5 ml] 5,000 unit SQ BID Hydromorphone [Dilaudid -] 4 mg PO Q4H 08/29/17 Lactobacillus Rhamnosus GG [Culturelle] 2 each PO DAILY 08/29/17 Multivitamins [Tab-A-Vit -] 1 tab PO DAILY 08/29/17 Ondansetron [Zofran -] 4 mg PO TID 08/29/17 Ranitidine HCl 150 mg PO DAILY 08/29/17 Vit B Comp/C/Folic/Iron/Vit E [Vitamin B Complex Tablet] 1 each PO DAILY Review of Systems - Review of Systems Constitutional: denies: Chills, Fever Eyes: denies: Recent Change in Vision HENT: denies: Nasal Congestion, Throat Pain Neck: denies: Stiffness, Tenderness Cardiovascular: denies: Chest Pain, Shortness of Breath Respiratory: reports: Cough. denies: Hemoptysis, SOB on Exertion, Wheezing Gastrointestinal: denies: Abdominal Pain, Nausea, Vomiting Genitourinary: denies: Dysuria, Hematuria Neurological: denies: Dizziness, Headache Physical Exam Vital Sings: Vital Signs Temperature 98.9 F 09/05/17 08:00 Pulse Rate 72 09/05/17 08:00 Respiratory Rate 18 09/05/17 08:00 Blood Pressure 157/70 09/05/17 08:00 O2 Sat by Pulse Oximetry (%) 95 09/05/17 09:00 Constitutional: Yes: Calm Eyes: Yes: Conjunctiva Clear, EOM Intact HENT: Yes: Atraumatic, Normocephalic Neck: Yes: Supple, Trachea Midline Cardiovascular: Yes: Regular Rate and Rhythm Respiratory: Yes: Rhonchi (bilateral ), Wheezes (scattered) ...Clubbing: No Gastrointestinal: Yes: Normal Bowel Sounds, Soft. No: Tenderness Edema: No Neurological: Yes: Alert, Oriented Labs: CBC, BMP 09/05/17 07:15 09/05/17 07:15 Imaging - Results Chest X-ray: Report Reviewed, Image Reviewed (no infiltrates) Assessment/Plan Osteomyelitis r/o Acute Bronchospasm - will start standing nebulizers today - if no improvement, then will consider trial of steroids - O2 to keep SpO2 >90% - incentive spirometry - antibiotics per ID - outpt PFTs - DVT prophylaxis Thank you for this consult Zain Garcia MD
[2017-09-05] MEDS ORDERED: ALBUTEROL SO4 0.083% IH SOL 2.5 MG/3 ML VIAL.NEB. NEB PRN ×2 (13:52→16:35)
--- NOTE | 2017-09-05 14:09 | PN ---
Progress Note (short form) - Note Progress Note: Podiatry Pre-op: Seen/evaluated at bedside in holding. Risks, benefits, alternatives to sx discussed at length with patient. All questions answered, informed consent obtained. Plan for R foot debridement, bone biopsy. Paola Shafer DPM
[2017-09-05] MEDS ORDERED: LIDOCAINE HCL 2% (20ML MULTI-DOSE VIAL) NR ONE (14:38)
[2017-09-05] MEDS ORDERED: MIDAZOLAM HCL 2 MG/2 ML SINGLE DOSE VIAL ONE ×3 (14:46→15:14)
[2017-09-05] MEDS ORDERED: ceFAZolin SODIUM 1 GM VIAL ONE (15:14)
[2017-09-05] MEDS ORDERED: PROMETHAZINE HCL 25 MG/1 ML VIAL IVPB PRN ×2 (15:28→16:35)
[2017-09-05] MEDS ORDERED: ONDANSETRON 4 MG/2 ML VIAL IVPUSH PRN ×2 (15:28→16:35)
[2017-09-05] MEDS ORDERED: oxyCODONE HCL 5 MG TABLET PO PRN ×2 (15:28→16:35)
[2017-09-05] MEDS ORDERED: LACTATED RINGERS SOLUTION 1,000 ML IV SCH ×2 (15:30→16:35)
--- NOTE | 2017-09-05 15:36 | OP ---
Operative Note - Note: Operative Date: 09/05/17 Pre-Operative Diagnosis: R foot pressure ulcer unstageable, osteomyelitis Operation: R foot debridement with bone biopsy Post-Operative Diagnosis: Same as Pre-op Surgeon: Hayden Shafer Anesthesia: Local, MAC Specimens Removed: Bone and soft tissue right foot Estimated Blood Loss (mls): 20 Instrument used (Debridements only): #15 blade scalpel and scissors Operative Report Dictated: Yes
[2017-09-05] MEDS ORDERED: ALBUTEROL SO4 2.5/IPRATROPIUM 0.5 INH SOL 3 ML VIAL.NEB. NEB SCH (16:00)
--- NOTE | 2017-09-05 16:28 | PN ---
Progress Note, Physician History of Present Illness: Pt w right ankle pain controlled by pain medication. Pt with dry cough is unchanged. Pt w/o fever, chills, SOB, CP, abd pain, diarrhea. - Current Medication List Current Medications: Active Medications Acetaminophen (Tylenol -) 650 mg PO TID [facility] Last Admin: 09/05/17 05:43 Dose: Not Given Albuterol Sulfate (Ventolin 0.083% Nebulizer Soln -) 1 amp NEB Q4H PRN PRN Reason: SHORT OF BREATH/WHEEZING Albuterol/Ipratropium (Duoneb -) 1 amp NEB RQID [facility] Amlodipine Besylate (Norvasc -) 2.5 mg PO DAILY [facility] Last Admin: 09/05/17 10:05 Dose: 2.5 mg Celecoxib (Celebrex -) 100 mg PO BID [facility] Last Admin: 09/04/17 22:01 Dose: 100 mg Collagenase (Santyl -) 1 applic TP DAILY [facility] Last Admin: 09/04/17 10:48 Dose: 1 applic Docusate Sodium (Colace Liquid -) 300 mg PO DAILY [facility] Last Admin: 09/04/17 10:44 Dose: 300 mg Gabapentin (Neurontin -) 400 mg PO BID [facility] Last Admin: 09/04/17 22:01 Dose: 400 mg Heparin Sodium (Porcine) (Heparin -) 5,000 unit SQ BID [facility] Last Admin: 09/05/17 10:02 Dose: Not Given Hydromorphone HCl (Dilaudid -) 2 mg PO HS PRN PRN Reason: PAIN LEVEL 6-10 Last Admin: 09/04/17 22:00 Dose: 2 mg Hydromorphone HCl (Dilaudid -) 4 mg PO Q4H PRN PRN Reason: PAIN LEVEL 4 - 6 Last Admin: 09/05/17 10:06 Dose: 4 mg Dextrose/Sodium Chloride (D5-Ns -) 1,000 mls @ 50 mls/hr IV ASDIR [facility] Last Admin: 09/05/17 00:02 Dose: 50 mls/hr Vancomycin HCl 1,000 mg/ (Dextrose) 250 mls @ 166.667 mls/hr IVPB DAILY@1800 DEBBIE PRN Reason: Protocol Lactated Ringer's (Lactated Ringers Solution) 1,000 mls @ 75 mls/hr IV ASDIR [facility] Lactobacillus Acidophilus (Bacid -) 2 tab PO DAILY [facility] Last Admin: 09/04/17 10:45 Dose: 2 tab Multivitamins/Minerals/Vitamin C (Tab-A-Vit -) 1 tab PO DAILY [facility] Last Admin: 09/04/17 10:45 Dose: 1 tab Ondansetron HCl (Zofran -) 4 mg PO TID [facility] Last Admin: 09/05/17 05:43 Dose: Not Given Ondansetron HCl (Zofran Injection) 4 mg IVPUSH Q6H PRN PRN Reason: NAUSEA AND/OR VOMITING Oxycodone HCl (Roxicodone -) 5 mg PO Q4H PRN PRN Reason: Pain Level > 4 Stop: 09/06/17 15:27 Promethazine HCl (Phenergan Injection -) 12.5 mg IVPB Q6H PRN PRN Reason: NAUSEA-FOR RESCUE AFTER 15 MIN Ranitidine HCl (Zantac -) 150 mg PO DAILY [facility] Last Admin: 09/04/17 10:44 Dose: 150 mg Senna (Senna -) 2 tab PO HS [facility] Last Admin: 09/04/17 22:01 Dose: Not Given Simethicone (Mylicon -) 160 mg PO QID [facility] Last Admin: 09/04/17 22:01 Dose: 160 mg - Objective Vital Signs: Vital Signs Temperature 97.3 F L 09/05/17 15:24 Pulse Rate 70 09/05/17 16:10 Respiratory Rate 16 09/05/17 16:10 Blood Pressure 122/63 09/05/17 16:10 O2 Sat by Pulse Oximetry (%) 98 09/05/17 16:10 Constitutional: Yes: No Distress, Calm Cardiovascular: Yes: Regular Rate and Rhythm, S1, S2 Respiratory: Yes: Regular, Rhonchi Gastrointestinal: Yes: Normal Bowel Sounds, Soft. No: Tenderness Extremities: Yes: Other (clean right ankle dressing) Edema: No Neurological: Yes: Alert, Oriented Labs: CBC, BMP 09/05/17 07:15 09/05/17 07:15 INR, PTT INR 1.16 (0.82-1.09) H 09/05/17 07:15 Problem List - Problems (1) Ulcer of right ankle Code(s): L97.319 - NON-PRESSURE CHRONIC ULCER OF RIGHT ANKLE WITH UNSP SEVERITY (2) Bilateral leg ulcer Code(s): L97.919 - NON-PRS CHRONIC ULC UNSP PRT OF R LOW LEG W UNSP SEVERITY; L97.929 - NON-PRS CHRONIC ULC UNSP PRT OF L LOW LEG W UNSP SEVERITY (3) PVD (peripheral vascular disease) Code(s): I73.9 - PERIPHERAL VASCULAR DISEASE, UNSPECIFIED (4) CVA (cerebral vascular accident) Code(s): I63.9 - CEREBRAL INFARCTION, UNSPECIFIED (5) Hypertension Code(s): I10 - ESSENTIAL (PRIMARY) HYPERTENSION (6) Hypoalbuminemia Code(s): E88.09 - OTH DISORDERS OF PLASMA-PROTEIN METABOLISM, NEC (7) Anemia Code(s): D64.9 - ANEMIA, UNSPECIFIED (8) Osteomyelitis Code(s): M86.9 - OSTEOMYELITIS, UNSPECIFIED (9) Cough Code(s): R05 - COUGH Assessment/Plan ID, Vasc SX, Podiatry consults appreciated. Pending foot Bx today. ECHO report was reviewed. 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 CXR noticed. Pulmonary consult for dry cough evaluation, in a patient w/o Hx/o smoking/ COPD / Emphysema/ Asthma/ not on ACEI/ not on ARB. Case was reviewed with pt's nurse
[2017-09-05] MEDS ORDERED: PIPERACILLIN/TAZOB 2.25 GM/50 ML PREMIX BAG IVPB ONE (16:35)
[2017-09-05] MEDS: DEXTROSE 5%-NORMAL SALINE 1,000 ML IV SCH (16:45)
[2017-09-05] MEDS ORDERED: PIPERACILLIN/TAZOB 2.25 GM 2.25 GM in DEXTROSE 5%-WATER - 100 ML IVPB ONE (17:00)
[2017-09-05] MEDS ORDERED: VANCOMYCIN 1,000 MG in DEXTROSE 5%-WATER - 250 ML IVPB SCH (18:00)
[2017-09-05] MEDS: VANCOMYCIN 1,000 MG in DEXTROSE 5%-WATER - 250 ML IVPB SCH (18:33)
--- NOTE | 2017-09-05 19:32 | OP ---
DATE OF OPERATION: 09/05/2017 PREOPERATIVE DIAGNOSIS: Right foot pressure ulcer, unstageable, and osteomyelitis of the right foot. POSTOPERATIVE DIAGNOSIS: Right foot pressure ulcer, unstageable, and osteomyelitis of the right foot. PROCEDURE: Right foot debridement with bone biopsy. SURGEON: Hayden Shafer DPM ANESTHESIA: IV sedation with local. HEMOSTASIS: Surgical dissection. ESTIMATED BLOOD LOSS: 20 mL. PATHOLOGY: Bone and soft tissue, right foot. DESCRIPTION OF PROCEDURE: The patient was brought to the operating room and placed on the operating table in the supine position. I elected to not use a tourniquet during the course of the procedure. Following the induction of IV sedation, local anesthesia was achieved utilizing 20 mL of 2% lidocaine plain. The right foot was scrubbed, prepped, and draped in the usual sterile fashion. Attention was directed to the right dorsal midfoot and rearfoot where 2 unstageable pressure ulcers with exposed bone were visualized. I began by performing an excisional debridement of subcutaneous tissue as well as exposed extensor tendon on both ulcer sites. The debridement was continued using a sterile 15 and scissors until granular tissue persisted. Next, I directed my attention to the exposed bone, which happened to be the lateral talar dome. I used the sagittal saw to decorticate the lateral talar dome. This was removed from the operative site and sectioned for bone culture and pathology. An appropriate soft tissue culture was obtained. The rotatory bur was used on power to smooth all rough edges of bone until healthy trabecular bone was persistent. The surgical site was copiously irrigated with sterile saline. The wound was packed open with Xeroform and a sterile compressive dressing was applied to the right foot, consisting of sterile gauze, Kerlix, and an Edgar wrap. The patient tolerated the procedure and anesthesia well without complications. She was transferred from the operating room to the recovery unit with vital signs stable and neurovascularly intact to the right foot. CORBY MOYA/[id number] cc: [facility]
[2017-09-05] MEDS: ALBUTEROL SO4 2.5/IPRATROPIUM 0.5 INH SOL 3 ML VIAL.NEB. NEB SCH (21:51)
[2017-09-05] MEDS: SENNOSIDES 8.6MG TABLET (FP) PO SCH (22:10)
[2017-09-06] MEDS: ONDANSETRON 4 MG TABLET PO SCH ×3 (05:59→21:34)
[2017-09-06] MEDS: ACETAMINOPHEN 325 MG TABLET (FP) PO SCH ×3 (05:59→21:33)
[2017-09-06] MEDS: ALBUTEROL SO4 2.5/IPRATROPIUM 0.5 INH SOL 3 ML VIAL.NEB. NEB SCH ×4 (08:40→20:20)
[2017-09-06 08:46] LABS: HEMATOCRIT 28.3 % (32.4-45.2); HEMOGLOBIN 9.3 GM/dL (10.7-15.3); MCH 31.3 pg (25.7-33.7); MCHC 32.9 g/dl (32.0-36.0); MEAN CELL VOLUME 95.1 fl (80-96); MEAN PLT VOLUME 7.7 fl (7.5-11.1); PLATELET COUNT 249 K/MM3 (134-434); RBC 2.97 M/mm3 (3.60-5.2); RDW 13.7 % (11.6-15.6); WHITE BLOOD COUNT 7.7 K/mm3 (4.0-10.0)
[2017-09-06 09:27] LABS: ANION GAP 8 (8-16); BLOOD UREA NITROGEN 7 mg/dL (7-18); CALCIUM 8.2 mg/dL (8.5-10.1); CHLORIDE 104 mmol/L (98-107); CO2 28 mmol/L (21-32); GLUCOSE,RANDOM 108 mg/dL (74-106); POTASSIUM 3.7 mmol/L (3.5-5.1); SODIUM 140 mmol/L (136-145)
[2017-09-06 09:29] LABS: CREATININE 0.4 mg/dL (0.55-1.02)
--- NOTE | 2017-09-06 09:35 | PN ---
Progress Note (short form) - Note Progress Note: Pt is day#1 s/p debridement/biopsy of right foot under MAC. No anesthetic issues/complications; continue current care.
[2017-09-06] MEDS ORDERED: DOCUSATE NA 100 MG/10 ML UNIT-DOSE CUPS PO SCH (10:00)
[2017-09-06] MEDS: RANITIDINE HCL 150 MG TABLET (FP) PO SCH (11:17)
[2017-09-06] MEDS: LACTOBACILLUS ACIDOPHILUS 1 EACH TAB (FP) PO SCH (11:17)
[2017-09-06] MEDS: CELECOXIB 100 MG CAPSULE PO SCH ×2 (11:17→21:38)
[2017-09-06] MEDS: GABAPENTIN 400 MG CAPSULE (FP) PO SCH ×2 (11:17→21:33)
[2017-09-06] MEDS: SIMETHICONE 80 MG TAB.CHEW (FP) PO SCH ×4 (11:18→21:38)
[2017-09-06] MEDS: amLODIPine BESYLATE 2.5 MG TABLET (FP) PO SCH (11:18)
[2017-09-06] MEDS: HEPARIN NA (PORCINE) 5,000 UNITS/ML 1ML VIAL SQ SCH ×2 (11:18→21:34)
[2017-09-06] MEDS: MULTIVITAMINS (DAILY MVI) TABLET (FP) PO SCH (11:20)
[2017-09-06] MEDS: HYDROmorphone HCL 2 MG TABLET PO PRN ×3 (11:21→21:35)
[2017-09-06] MEDS: COLLAGENASE CLOSTRIDIUM HIST. 30 GRAMS TUBE TP SCH (11:30)
[2017-09-06] MEDS ORDERED: PT OWN MED DRAWER 7, Y5N ONE ×2 (11:45→17:52)
--- NOTE | 2017-09-06 11:47 | PN ---
Progress Note (short form) - Note Progress Note: PULMONARY States nonproductive cough about the same. No wheezing. Reports temporary improvement with nebulizers. Last Vital Signs Temp Pulse Resp BP Pulse Ox 98.7 F 84 19 135/78 94 L 09/06/17 06:52 09/06/17 06:52 09/06/17 06:52 09/06/17 06:52 09/05/17 21:00 Gen: NAD at rest Heart: RRR Lung: bilateral scattered rhonchi Abd: soft, nontender Ext: no edema CBC, BMP 09/06/17 07:30 09/06/17 07:30 Active Medications Acetaminophen (Tylenol -) 650 mg PO TID [facility] Last Admin: 09/06/17 05:59 Dose: 650 mg Albuterol Sulfate (Ventolin 0.083% Nebulizer Soln -) 1 amp NEB Q4H PRN PRN Reason: SHORT OF BREATH/WHEEZING Albuterol/Ipratropium (Duoneb -) 1 amp NEB RQID [facility] Last Admin: 09/06/17 11:43 Dose: 1 amp Amlodipine Besylate (Norvasc -) 2.5 mg PO DAILY [facility] Last Admin: 09/06/17 11:18 Dose: 2.5 mg Celecoxib (Celebrex -) 100 mg PO BID [facility] Last Admin: 09/06/17 11:17 Dose: 100 mg Collagenase (Santyl -) 1 applic TP DAILY [facility] Last Admin: 09/06/17 11:30 Dose: 1 applic Docusate Sodium (Colace Liquid -) 300 mg PO DAILY [facility] Last Admin: 09/06/17 11:18 Dose: 300 mg Gabapentin (Neurontin -) 400 mg PO BID [facility] Last Admin: 09/06/17 11:17 Dose: 400 mg Heparin Sodium (Porcine) (Heparin -) 5,000 unit SQ BID [facility] Last Admin: 09/06/17 11:18 Dose: 5,000 unit Hydromorphone HCl (Dilaudid -) 2 mg PO HS PRN PRN Reason: PAIN LEVEL 6-10 Hydromorphone HCl (Dilaudid -) 4 mg PO Q4H PRN PRN Reason: PAIN LEVEL 4 - 6 Last Admin: 09/06/17 11:21 Dose: 4 mg Dextrose/Sodium Chloride (D5-Ns -) 1,000 mls @ 50 mls/hr IV ASDIR [facility] Last Admin: 09/05/17 16:45 Dose: 0 mls Vancomycin HCl 1,000 mg/ (Dextrose) 250 mls @ 166.667 mls/hr IVPB DAILY@1800 DEBBIE PRN Reason: Protocol Last Admin: 09/05/17 18:33 Dose: 166.667 mls/hr Lactobacillus Acidophilus (Bacid -) 2 tab PO DAILY [facility] Last Admin: 09/06/17 11:17 Dose: 2 tab Multivitamins/Minerals/Vitamin C (Tab-A-Vit -) 1 tab PO DAILY [facility] Last Admin: 09/06/17 11:20 Dose: 1 tab Ondansetron HCl (Zofran -) 4 mg PO TID [facility] Last Admin: 09/06/17 05:59 Dose: 4 mg Ondansetron HCl (Zofran Injection) 4 mg IVPUSH Q6H PRN PRN Reason: NAUSEA AND/OR VOMITING Oxycodone HCl (Roxicodone -) 5 mg PO Q4H PRN PRN Reason: Pain Level > 4 Stop: 09/06/17 15:27 Promethazine HCl (Phenergan Injection -) 12.5 mg IVPB Q6H PRN PRN Reason: NAUSEA-FOR RESCUE AFTER 15 MIN Ranitidine HCl (Zantac -) 150 mg PO DAILY [facility] Last Admin: 09/06/17 11:17 Dose: 150 mg Senna (Senna -) 2 tab PO HS [facility] Last Admin: 09/05/17 22:10 Dose: 2 tab Simethicone (Mylicon -) 160 mg PO QID [facility] Last Admin: 09/06/17 11:18 Dose: 160 mg A/P Osteomyelitis r/o Acute Bronchospasm - continue standing nebulizers - will start short course of medrol x 48 hrs and then reassess - O2 to keep SpO2 >90% - incentive spirometry - antibiotics per ID - outpt PFTs - DVT prophylaxis
[2017-09-06] MEDS: methylPREDNISolone NA SUCC 40 MG/1 ML VIAL IVPUSH SCH ×2 (12:46→17:23)
[2017-09-06] MEDS: DEXTROSE 5%-NORMAL SALINE 1,000 ML IV SCH ×2 (13:02→17:24)
[2017-09-06] MEDS: DOCUSATE SODIUM 100 MG CAPSULE (FP) PO SCH (13:41)
--- NOTE | 2017-09-06 14:57 | PN ---
Progress Note (short form) - Note Progress Note: Podiatry F/U: Seen/evaluated at bedside, NAD. Significant persistent pain to R foot/ankle, especially on range of motion. Denies F/V/N/C/SOB/CP. S/p R foot debridement with bone biopsy POD #1. Afebrile, VSS. SUHAIL: R foot: anterior rearfoot pressure ulcer stage 4 with exposed talar body, cancellous bone present, no active bleeding noted, no purulent drainage, no fluctuance, no periwound erythema, no ascending cellulitis, no active signs of infection. Significant tenderness to palpation. WBC: 7.7 OR Cx: pending Imp: 87 year old F with R foot pressure ulcer stage 4, osteomyelitis 1. C/w IV abx per Infectious Disease 2. Non-adherent dressing + DSD applied to R foot 3. F/u OR cultures 4. Will need wound vac with white foam applied 3x/week upon discharge 5. Pain control 6. Patient still has significant subluxation of foot with instability. Guarded prognosis going forward. Paola Shafer DPM
[2017-09-06] MEDS: VANCOMYCIN 1,000 MG in DEXTROSE 5%-WATER - 250 ML IVPB SCH (17:24)
[2017-09-06] MEDS: SENNOSIDES 8.6MG TABLET (FP) PO SCH (21:38)
--- NOTE | 2017-09-06 22:28 | PN ---
Progress Note, Physician History of Present Illness: Pt w right ankle pain, controlled by pain medication. Pt with dry cough. Pt w/o fever, chills, SOB, CP, abd pain, diarrhea. - Current Medication List Current Medications: Active Medications Acetaminophen (Tylenol -) 650 mg PO TID [facility] Last Admin: 09/06/17 21:33 Dose: 650 mg Albuterol Sulfate (Ventolin 0.083% Nebulizer Soln -) 1 amp NEB Q4H PRN PRN Reason: SHORT OF BREATH/WHEEZING Albuterol/Ipratropium (Duoneb -) 1 amp NEB RQID [facility] Last Admin: 09/06/17 20:20 Dose: 1 amp Amlodipine Besylate (Norvasc -) 2.5 mg PO DAILY [facility] Last Admin: 09/06/17 11:18 Dose: 2.5 mg Celecoxib (Celebrex -) 100 mg PO BID [facility] Last Admin: 09/06/17 21:38 Dose: 100 mg Collagenase (Santyl -) 1 applic TP DAILY [facility] Last Admin: 09/06/17 11:30 Dose: 1 applic Docusate Sodium (Colace -) 300 mg PO DAILY [facility] Last Admin: 09/06/17 13:41 Dose: 300 mg Gabapentin (Neurontin -) 400 mg PO BID [facility] Last Admin: 09/06/17 21:33 Dose: 400 mg Heparin Sodium (Porcine) (Heparin -) 5,000 unit SQ BID [facility] Last Admin: 09/06/17 21:34 Dose: 5,000 unit Hydromorphone HCl (Dilaudid -) 2 mg PO HS PRN PRN Reason: PAIN LEVEL 6-10 Hydromorphone HCl (Dilaudid -) 4 mg PO Q4H PRN PRN Reason: PAIN LEVEL 4 - 6 Last Admin: 09/06/17 21:35 Dose: 4 mg Dextrose/Sodium Chloride (D5-Ns -) 1,000 mls @ 50 mls/hr IV ASDIR [facility] Last Admin: 09/06/17 17:24 Dose: Not Given Vancomycin HCl 1,000 mg/ (Dextrose) 250 mls @ 166.667 mls/hr IVPB DAILY@1800 DEBBIE PRN Reason: Protocol Last Admin: 09/06/17 17:24 Dose: 166.667 mls/hr Lactobacillus Acidophilus (Bacid -) 2 tab PO DAILY [facility] Last Admin: 09/06/17 11:17 Dose: 2 tab Methylprednisolone Sodium Succinate (Solu-Medrol -) 40 mg IVPUSH Q8H-IV [facility] Last Admin: 09/06/17 17:23 Dose: 40 mg Multivitamins/Minerals/Vitamin C (Tab-A-Vit -) 1 tab PO DAILY [facility] Last Admin: 09/06/17 11:20 Dose: 1 tab Ondansetron HCl (Zofran -) 4 mg PO TID [facility] Last Admin: 09/06/17 21:34 Dose: 4 mg Ondansetron HCl (Zofran Injection) 4 mg IVPUSH Q6H PRN PRN Reason: NAUSEA AND/OR VOMITING Promethazine HCl (Phenergan Injection -) 12.5 mg IVPB Q6H PRN PRN Reason: NAUSEA-FOR RESCUE AFTER 15 MIN Ranitidine HCl (Zantac -) 150 mg PO DAILY [facility] Last Admin: 09/06/17 11:17 Dose: 150 mg Senna (Senna -) 2 tab PO HS [facility] Last Admin: 09/06/17 21:38 Dose: 2 tab Simethicone (Mylicon -) 160 mg PO QID [facility] Last Admin: 09/06/17 21:38 Dose: 80 mg - Objective Vital Signs: Vital Signs Temperature 98.0 F 09/06/17 14:00 Pulse Rate 90 09/06/17 14:00 Respiratory Rate 20 09/06/17 14:00 Blood Pressure 140/71 09/06/17 14:00 O2 Sat by Pulse Oximetry (%) 96 09/06/17 20:15 Constitutional: Yes: No Distress, Calm Cardiovascular: Yes: Regular Rate and Rhythm, S1, S2 Respiratory: Yes: Regular, Rhonchi (scattered) Gastrointestinal: Yes: Normal Bowel Sounds, Soft, Tenderness Extremities: Yes: Other (clean right ankle dressing) Edema: No Neurological: Yes: Alert, Oriented Labs: CBC, BMP 09/06/17 07:30 09/06/17 07:30 INR, PTT INR 1.16 (0.82-1.09) H 09/05/17 07:15 Problem List - Problems (1) Ulcer of right ankle Code(s): L97.319 - NON-PRESSURE CHRONIC ULCER OF RIGHT ANKLE WITH UNSP SEVERITY (2) Bilateral leg ulcer Code(s): L97.919 - NON-PRS CHRONIC ULC UNSP PRT OF R LOW LEG W UNSP SEVERITY; L97.929 - NON-PRS CHRONIC ULC UNSP PRT OF L LOW LEG W UNSP SEVERITY (3) PVD (peripheral vascular disease) Code(s): I73.9 - PERIPHERAL VASCULAR DISEASE, UNSPECIFIED (4) CVA (cerebral vascular accident) Code(s): I63.9 - CEREBRAL INFARCTION, UNSPECIFIED (5) Hypertension Code(s): I10 - ESSENTIAL (PRIMARY) HYPERTENSION (6) Hypoalbuminemia Code(s): E88.09 - [facility] DISORDERS OF PLASMA-PROTEIN METABOLISM, NEC (7) Anemia Code(s): D64.9 - ANEMIA, UNSPECIFIED (8) Osteomyelitis Code(s): M86.9 - OSTEOMYELITIS, UNSPECIFIED (9) Cough Code(s): R05 - COUGH Assessment/Plan ID, Vasc SX, Podiatry consults appreciated. Abtx per ID Local care per Podiatry Post op Day #1. To f/u bone BX s/p ECHO. Probable pt would need PICC line and longterm abtx treatment. Pulmonary consult appreciated. Case was reviewed with pt's nurse. Am labs
[2017-09-07] MEDS: methylPREDNISolone NA SUCC 40 MG/1 ML VIAL IVPUSH SCH ×3 (02:34→17:15)
[2017-09-07] MEDS: ONDANSETRON 4 MG TABLET PO SCH ×3 (06:31→21:06)
[2017-09-07] MEDS: ACETAMINOPHEN 325 MG TABLET (FP) PO SCH ×3 (06:31→21:05)
[2017-09-07] MEDS: HYDROmorphone HCL 2 MG TABLET PO PRN ×5 (06:34→21:58)
[2017-09-07] MEDS: ALBUTEROL SO4 2.5/IPRATROPIUM 0.5 INH SOL 3 ML VIAL.NEB. NEB SCH ×4 (07:40→20:29)
[2017-09-07 08:07] LABS: HEMOGLOBIN 9.5 GM/dL (10.7-15.3); MCH 31.2 pg (25.7-33.7); MCHC 32.7 g/dl (32.0-36.0); MEAN CELL VOLUME 95.4 fl (80-96); MEAN PLT VOLUME 8.1 fl (7.5-11.1); PLATELET COUNT 287 K/MM3 (134-434); RBC 3.04 M/mm3 (3.60-5.2); RDW 13.9 % (11.6-15.6); WHITE BLOOD COUNT 9.5 K/mm3 (4.0-10.0)
[2017-09-07 08:46] LABS: CHLORIDE 102 mmol/L (98-107); POTASSIUM 3.9 mmol/L (3.5-5.1); SODIUM 139 mmol/L (136-145)
[2017-09-07 09:09] LABS: ALK PHOS 154 U/L (45-117); ANION GAP 9 (8-16); BILIRUBIN,TOTAL 0.2 mg/dL (0.2-1.0); BLOOD UREA NITROGEN 7 mg/dL (7-18); CALCIUM 8.5 mg/dL (8.5-10.1); CO2 28 mmol/L (21-32); CREATININE 0.4 mg/dL (0.55-1.02); GLUCOSE,RANDOM 140 mg/dL (74-106); SGOT/AST 18 U/L (15-37); SGPT/ALT 17 U/L (12-78); TOT PROT 5.9 g/dl (6.4-8.2)
--- NOTE | 2017-09-07 10:53 | PN ---
Progress Note, Physician History of Present Illness: Pt w right ankle pain, controlled by pain medication. Pt with dry cough, better with nebulizer. Pt w/o fever, chills, SOB, CP, abd pain, diarrhea. - Current Medication List Current Medications: Active Medications Acetaminophen (Tylenol -) 650 mg PO TID [facility] Last Admin: 09/07/17 06:31 Dose: 650 mg Albuterol Sulfate (Ventolin 0.083% Nebulizer Soln -) 1 amp NEB Q4H PRN PRN Reason: SHORT OF BREATH/WHEEZING Albuterol/Ipratropium (Duoneb -) 1 amp NEB RQID [facility] Last Admin: 09/07/17 07:40 Dose: 1 amp Amlodipine Besylate (Norvasc -) 2.5 mg PO DAILY [facility] Last Admin: 09/06/17 11:18 Dose: 2.5 mg Celecoxib (Celebrex -) 100 mg PO BID [facility] Last Admin: 09/06/17 21:38 Dose: 100 mg Collagenase (Santyl -) 1 applic TP DAILY [facility] Last Admin: 09/06/17 11:30 Dose: 1 applic Docusate Sodium (Colace -) 300 mg PO DAILY [facility] Last Admin: 09/06/17 13:41 Dose: 300 mg Gabapentin (Neurontin -) 400 mg PO BID [facility] Last Admin: 09/06/17 21:33 Dose: 400 mg Heparin Sodium (Porcine) (Heparin -) 5,000 unit SQ BID [facility] Last Admin: 09/06/17 21:34 Dose: 5,000 unit Hydromorphone HCl (Dilaudid -) 2 mg PO HS PRN PRN Reason: PAIN LEVEL 6-10 Hydromorphone HCl (Dilaudid -) 4 mg PO Q4H PRN PRN Reason: PAIN LEVEL 4 - 6 Last Admin: 09/07/17 06:34 Dose: 4 mg Dextrose/Sodium Chloride (D5-Ns -) 1,000 mls @ 50 mls/hr IV ASDIR [facility] Last Admin: 09/06/17 17:24 Dose: Not Given Vancomycin HCl 1,000 mg/ (Dextrose) 250 mls @ 166.667 mls/hr IVPB DAILY@1800 DEBBIE PRN Reason: Protocol Last Admin: 09/06/17 17:24 Dose: 166.667 mls/hr Lactobacillus Acidophilus (Bacid -) 2 tab PO DAILY [facility] Last Admin: 09/06/17 11:17 Dose: 2 tab Methylprednisolone Sodium Succinate (Solu-Medrol -) 40 mg IVPUSH Q8H-IV [facility] Last Admin: 09/07/17 02:34 Dose: 40 mg Multivitamins/Minerals/Vitamin C (Tab-A-Vit -) 1 tab PO DAILY [facility] Last Admin: 09/06/17 11:20 Dose: 1 tab Ondansetron HCl (Zofran -) 4 mg PO TID [facility] Last Admin: 09/07/17 06:31 Dose: 4 mg Ondansetron HCl (Zofran Injection) 4 mg IVPUSH Q6H PRN PRN Reason: NAUSEA AND/OR VOMITING Promethazine HCl (Phenergan Injection -) 12.5 mg IVPB Q6H PRN PRN Reason: NAUSEA-FOR RESCUE AFTER 15 MIN Ranitidine HCl (Zantac -) 150 mg PO DAILY [facility] Last Admin: 09/06/17 11:17 Dose: 150 mg Senna (Senna -) 2 tab PO HS [facility] Last Admin: 09/06/17 21:38 Dose: 2 tab Simethicone (Mylicon -) 160 mg PO QID [facility] Last Admin: 09/06/17 21:38 Dose: 80 mg - Objective Vital Signs: Vital Signs Temperature 97.8 F 09/07/17 05:59 Pulse Rate 83 09/07/17 05:59 Respiratory Rate 20 09/07/17 05:59 Blood Pressure 139/76 09/07/17 05:59 O2 Sat by Pulse Oximetry (%) 96 09/06/17 20:15 Constitutional: Yes: No Distress, Calm Cardiovascular: Yes: Regular Rate and Rhythm, S1, S2 Respiratory: Yes: Regular, Other (coarse BS bilat.) Gastrointestinal: Yes: Normal Bowel Sounds, Soft. No: Tenderness Edema: No Neurological: Yes: Alert, Oriented Labs: CBC, BMP 09/07/17 06:30 09/07/17 06:30 INR, PTT INR 1.16 (0.82-1.09) H 09/05/17 07:15 Problem List - Problems (1) Ulcer of right ankle Code(s): L97.319 - NON-PRESSURE CHRONIC ULCER OF RIGHT ANKLE WITH UNSP SEVERITY (2) Bilateral leg ulcer Code(s): L97.919 - NON-PRS CHRONIC ULC UNSP PRT OF R LOW LEG W UNSP SEVERITY; L97.929 - NON-PRS CHRONIC ULC UNSP PRT OF L LOW LEG W UNSP SEVERITY (3) PVD (peripheral vascular disease) Code(s): I73.9 - PERIPHERAL VASCULAR DISEASE, UNSPECIFIED (4) CVA (cerebral vascular accident) Code(s): I63.9 - CEREBRAL INFARCTION, UNSPECIFIED (5) Hypertension Code(s): I10 - ESSENTIAL (PRIMARY) HYPERTENSION (6) Hypoalbuminemia Code(s): E88.09 - [facility] DISORDERS OF PLASMA-PROTEIN METABOLISM, NEC (7) Anemia Code(s): D64.9 - ANEMIA, UNSPECIFIED (8) Osteomyelitis Code(s): M86.9 - OSTEOMYELITIS, UNSPECIFIED (9) Cough Code(s): R05 - COUGH Assessment/Plan ID, Vasc SX, Podiatry consults appreciated. Abtx per ID -case was d/w Dr. Ferrer. Local care per Podiatry Post op Day #2. To f/u bone BX -to adjust abtx per CX report s/p ECHO. Probable pt would need PICC line and nursing home abtx treatment. Pulmonary consult appreciated. Case was reviewed with pt's nurse. Am labs
--- NOTE | 2017-09-07 11:16 | PN ---
Progress Note (short form) - Note Progress Note: alert nad dry cough s/p biopsy Vital Signs Period Temp Pulse Resp BP Sys/Beaver Pulse Ox Last 24 Hr 97.8 F-98.3 F 78-105 20-21 130-140/65-78 96 cor-rrr lungs decreased bs at bases abd soft,nt ext dressing intact cxray no infiltrate mri probable osteo, but exposed bone CBC, BMP 09/07/17 06:30 09/07/17 06:30 Microbiology 09/05/17 15:44 Bone Gram Stain - Final 09/05/17 15:44 Biopsy Tissue Gram Stain - Final 08/29/17 16:10 Ankle - Right Gram Stain - Final 08/29/17 16:10 Ankle - Right Wound Culture - Final Mr S Aureus Diphtheroid/Corynebacterium 08/29/17 19:05 Blood - Peripheral Venous Blood Culture - Final NO GROWTH AFTER 5 DAYS INCUBATION 08/29/17 18:40 Blood - Peripheral Venous Blood Culture - Final NO GROWTH AFTER 5 DAYS INCUBATION a/p osteomyelitis failed one month of po bactrim Bone biopsy (failed bactrim) ?need for debridement podiatry consult noted for bone biopsy continue vancomycin f/u bone biopsy probable d/c to NH with picc line on vancomycin Problem List - Problems (1) Osteomyelitis Code(s): M86.9 - OSTEOMYELITIS, UNSPECIFIED (2) Ulcer of right ankle Code(s): L97.319 - NON-PRESSURE CHRONIC ULCER OF RIGHT ANKLE WITH UNSP SEVERITY
[2017-09-07] MEDS ORDERED: PT OWN MED DRAWER 7, Y5N ONE (11:35)
[2017-09-07] MEDS: SIMETHICONE 80 MG TAB.CHEW (FP) PO SCH ×4 (11:51→21:05)
[2017-09-07] MEDS: MULTIVITAMINS (DAILY MVI) TABLET (FP) PO SCH (11:51)
[2017-09-07] MEDS: HEPARIN NA (PORCINE) 5,000 UNITS/ML 1ML VIAL SQ SCH ×2 (11:51→21:03)
[2017-09-07] MEDS: amLODIPine BESYLATE 2.5 MG TABLET (FP) PO SCH (11:51)
[2017-09-07] MEDS: GABAPENTIN 400 MG CAPSULE (FP) PO SCH ×2 (11:52→21:05)
[2017-09-07] MEDS: CELECOXIB 100 MG CAPSULE PO SCH ×2 (11:52→21:45)
[2017-09-07] MEDS: DOCUSATE SODIUM 100 MG CAPSULE (FP) PO SCH (11:53)
[2017-09-07] MEDS: LACTOBACILLUS ACIDOPHILUS 1 EACH TAB (FP) PO SCH (11:53)
[2017-09-07] MEDS: RANITIDINE HCL 150 MG TABLET (FP) PO SCH (11:54)
--- NOTE | 2017-09-07 11:58 | PATH ---
Surgical Pathology Report Patient Name: JOE ZAFAR [facility]. Rec. #: [id number] /Age/Gender: 1930 (Age: 87) / F Account: [id number] Location: [address] [place] [address]/[facility] Taken: 09/05/2017 Received: 09/06/2017 Reported: 09/07/2017 Physicians: Dai Hickey DPM Specimen(s) Received A: BONE BX B: DEBRIDEMENT TISSUE RIGHT FOOT Clinical History Wound infection right foot Final Diagnosis A. 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 B. FOOT, SOFT TISSUE, RIGHT, BIOPSY: SKIN AND UNDERLYING SOFT TISSUE WITH ACUTE AND CHRONIC NECROTIZING INFLAMMATION. Electronically Signed Maribeth Cook M.D. Gross Description A. Received in formalin labeled "bone biopsy right foot," is a 1.7 x 1.5 x 0.2 cm aggregate of hoffman bone fragments. The formalin is filtered and the specimen is entirely submitted in one cassette, following decalcification. B. Received in formalin labeled "soft tissue right foot," is a 2.5 x 2.0 x 0.3 cm aggregate of hoffman-mckeon, necrotic fragments of possible skin and soft tissue. The specimen is entirely submitted in one cassette. 09/06/201709/06/2017
[2017-09-07] MEDS: COLLAGENASE CLOSTRIDIUM HIST. 30 GRAMS TUBE TP SCH (12:04)
--- NOTE | 2017-09-07 14:33 | PN ---
Progress Note, Physician History of Present Illness: pulmonary alert,no distress,+moist cough, - Current Medication List Current Medications: Active Medications Acetaminophen (Tylenol -) 650 mg PO TID [facility] Last Admin: 09/07/17 06:31 Dose: 650 mg Albuterol Sulfate (Ventolin 0.083% Nebulizer Soln -) 1 amp NEB Q4H PRN PRN Reason: SHORT OF BREATH/WHEEZING Albuterol/Ipratropium (Duoneb -) 1 amp NEB RQID [facility] Last Admin: 09/07/17 11:10 Dose: 1 amp Amlodipine Besylate (Norvasc -) 2.5 mg PO DAILY [facility] Last Admin: 09/07/17 11:51 Dose: 2.5 mg Celecoxib (Celebrex -) 100 mg PO BID [facility] Last Admin: 09/07/17 11:52 Dose: 100 mg Collagenase (Santyl -) 1 applic TP DAILY [facility] Last Admin: 09/07/17 12:04 Dose: 1 applic Docusate Sodium (Colace -) 300 mg PO DAILY [facility] Last Admin: 09/07/17 11:53 Dose: 300 mg Gabapentin (Neurontin -) 400 mg PO BID [facility] Last Admin: 09/07/17 11:52 Dose: 400 mg Heparin Sodium (Porcine) (Heparin -) 5,000 unit SQ BID [facility] Last Admin: 09/07/17 11:51 Dose: 5,000 unit Hydromorphone HCl (Dilaudid -) 2 mg PO HS PRN PRN Reason: PAIN LEVEL 6-10 Hydromorphone HCl (Dilaudid -) 4 mg PO Q4H PRN PRN Reason: PAIN LEVEL 4 - 6 Last Admin: 09/07/17 11:54 Dose: 4 mg Dextrose/Sodium Chloride (D5-Ns -) 1,000 mls @ 50 mls/hr IV ASDIR [facility] Last Admin: 09/06/17 17:24 Dose: Not Given Vancomycin HCl 1,000 mg/ (Dextrose) 250 mls @ 166.667 mls/hr IVPB DAILY@1800 DEBBIE PRN Reason: Protocol Last Admin: 09/06/17 17:24 Dose: 166.667 mls/hr Lactobacillus Acidophilus (Bacid -) 2 tab PO DAILY [facility] Last Admin: 09/07/17 11:53 Dose: 2 tab Methylprednisolone Sodium Succinate (Solu-Medrol -) 40 mg IVPUSH Q8H-IV [facility] Last Admin: 09/07/17 11:54 Dose: 40 mg Multivitamins/Minerals/Vitamin C (Tab-A-Vit -) 1 tab PO DAILY [facility] Last Admin: 09/07/17 11:51 Dose: 1 tab Ondansetron HCl (Zofran -) 4 mg PO TID [facility] Last Admin: 09/07/17 06:31 Dose: 4 mg Ondansetron HCl (Zofran Injection) 4 mg IVPUSH Q6H PRN PRN Reason: NAUSEA AND/OR VOMITING Promethazine HCl (Phenergan Injection -) 12.5 mg IVPB Q6H PRN PRN Reason: NAUSEA-FOR RESCUE AFTER 15 MIN Ranitidine HCl (Zantac -) 150 mg PO DAILY [facility] Last Admin: 09/07/17 11:54 Dose: 150 mg Senna (Senna -) 2 tab PO HS [facility] Last Admin: 09/06/17 21:38 Dose: 2 tab Simethicone (Mylicon -) 160 mg PO QID [facility] Last Admin: 09/07/17 11:51 Dose: 160 mg - Objective Vital Signs: Vital Signs Temperature 98.8 F 09/07/17 14:00 Pulse Rate 94 H 09/07/17 14:00 Respiratory Rate 22 09/07/17 14:00 Blood Pressure 127/68 09/07/17 14:00 O2 Sat by Pulse Oximetry (%) 96 09/06/17 20:15 Constitutional: Yes: Well Nourished, Calm Eyes: Yes: WNL HENT: Yes: WNL Neck: Yes: WNL Cardiovascular: Yes: Regular Rate and Rhythm, S1, S2 Respiratory: Yes: Rhonchi (few rhonchi) Gastrointestinal: Yes: Normal Bowel Sounds, Soft Extremities: Yes: WNL Edema: No Labs: CBC, BMP 09/07/17 06:30 09/07/17 06:30 INR, PTT INR 1.16 (0.82-1.09) H 09/05/17 07:15 - ....Imaging Chest X-ray: Report Reviewed, Image Reviewed Problem List - Problems (1) Bronchospasm Code(s): J98.01 - ACUTE BRONCHOSPASM (2) Cough Code(s): R05 - COUGH (3) Osteomyelitis Code(s): M86.9 - OSTEOMYELITIS, UNSPECIFIED Assessment/Plan A/P Osteomyelitis r/o Acute Bronchospasm - continue standing nebulizers - medrol x 48 hrs and then reassess - O2 to keep SpO2 >90% - incentive spirometry - antibiotics per ID - outpt PFTs - DVT prophylaxis DR NOONAN
[2017-09-07] MEDS: DEXTROSE 5%-NORMAL SALINE 1,000 ML IV SCH (16:36)
[2017-09-07] MEDS: VANCOMYCIN 1,000 MG in DEXTROSE 5%-WATER - 250 ML IVPB SCH (17:14)
[2017-09-07] MEDS: SENNOSIDES 8.6MG TABLET (FP) PO SCH (21:09)
[2017-09-08] MEDS: methylPREDNISolone NA SUCC 40 MG/1 ML VIAL IVPUSH SCH ×4 (02:43→21:30)
[2017-09-08] MEDS: ACETAMINOPHEN 325 MG TABLET (FP) PO SCH ×3 (05:30→21:29)
[2017-09-08] MEDS: ONDANSETRON 4 MG TABLET PO SCH ×3 (05:30→21:30)
[2017-09-08] MEDS: ALBUTEROL SO4 2.5/IPRATROPIUM 0.5 INH SOL 3 ML VIAL.NEB. NEB SCH ×4 (07:40→20:26)
[2017-09-08] MEDS: HYDROmorphone HCL 2 MG TABLET PO PRN ×6 (08:49→21:32)
[2017-09-08 08:57] LABS: HEMATOCRIT 29.4 % (32.4-45.2); HEMOGLOBIN 9.4 GM/dL (10.7-15.3); MCH 30.8 pg (25.7-33.7); MCHC 31.8 g/dl (32.0-36.0); MEAN PLT VOLUME 8.1 fl (7.5-11.1); PLATELET COUNT 319 K/MM3 (134-434); RBC 3.03 M/mm3 (3.60-5.2); WHITE BLOOD COUNT 13.8 K/mm3 (4.0-10.0)
[2017-09-08 09:27] LABS: ANION GAP 8 (8-16); CHLORIDE 103 mmol/L (98-107); CO2 27 mmol/L (21-32); GLUCOSE,RANDOM 136 mg/dL (74-106); POTASSIUM 4.3 mmol/L (3.5-5.1); SODIUM 138 mmol/L (136-145)
[2017-09-08 09:32] LABS: BLOOD UREA NITROGEN 14 mg/dL (7-18); CREATININE 0.6 mg/dL (0.55-1.02)
--- NOTE | 2017-09-08 09:58 | PN ---
Progress Note, Physician History of Present Illness: Pt w right ankle pain, controlled by pain medication. Pt's cough is improved. Pt w/o fever, chills, SOB, CP, abd pain, diarrhea, constipation. - Current Medication List Current Medications: Active Medications Acetaminophen (Tylenol -) 650 mg PO TID [facility] Last Admin: 09/08/17 05:30 Dose: 650 mg Albuterol Sulfate (Ventolin 0.083% Nebulizer Soln -) 1 amp NEB Q4H PRN PRN Reason: SHORT OF BREATH/WHEEZING Albuterol/Ipratropium (Duoneb -) 1 amp NEB RQID [facility] Last Admin: 09/08/17 07:40 Dose: 1 amp Amlodipine Besylate (Norvasc -) 2.5 mg PO DAILY [facility] Last Admin: 09/07/17 11:51 Dose: 2.5 mg Celecoxib (Celebrex -) 100 mg PO BID [facility] Last Admin: 09/07/17 21:45 Dose: 100 mg Collagenase (Santyl -) 1 applic TP DAILY [facility] Last Admin: 09/07/17 12:04 Dose: 1 applic Docusate Sodium (Colace -) 300 mg PO DAILY [facility] Last Admin: 09/07/17 11:53 Dose: 300 mg Gabapentin (Neurontin -) 400 mg PO BID [facility] Last Admin: 09/07/17 21:05 Dose: 400 mg Heparin Sodium (Porcine) (Heparin -) 5,000 unit SQ BID [facility] Last Admin: 09/07/17 21:03 Dose: 5,000 unit Hydromorphone HCl (Dilaudid -) 2 mg PO HS PRN PRN Reason: PAIN LEVEL 6-10 Last Admin: 09/07/17 21:58 Dose: 2 mg Hydromorphone HCl (Dilaudid -) 4 mg PO Q3H PRN PRN Reason: PAIN LEVEL 4 - 6 Last Admin: 09/08/17 08:49 Dose: 4 mg Dextrose/Sodium Chloride (D5-Ns -) 1,000 mls @ 50 mls/hr IV ASDIR [facility] Last Admin: 09/07/17 16:36 Dose: Not Given Vancomycin HCl 1,000 mg/ (Dextrose) 250 mls @ 166.667 mls/hr IVPB DAILY@1800 DEBBIE PRN Reason: Protocol Last Admin: 09/07/17 17:14 Dose: 166.667 mls/hr Lactobacillus Acidophilus (Bacid -) 2 tab PO DAILY [facility] Last Admin: 09/07/17 11:53 Dose: 2 tab Methylprednisolone Sodium Succinate (Solu-Medrol -) 40 mg IVPUSH Q8H-IV [facility] Last Admin: 09/08/17 02:43 Dose: 40 mg Multivitamins/Minerals/Vitamin C (Tab-A-Vit -) 1 tab PO DAILY [facility] Last Admin: 09/07/17 11:51 Dose: 1 tab Ondansetron HCl (Zofran -) 4 mg PO TID [facility] Last Admin: 09/08/17 05:30 Dose: 4 mg Ondansetron HCl (Zofran Injection) 4 mg IVPUSH Q6H PRN PRN Reason: NAUSEA AND/OR VOMITING Promethazine HCl (Phenergan Injection -) 12.5 mg IVPB Q6H PRN PRN Reason: NAUSEA-FOR RESCUE AFTER 15 MIN Ranitidine HCl (Zantac -) 150 mg PO DAILY [facility] Last Admin: 09/07/17 11:54 Dose: 150 mg Senna (Senna -) 2 tab PO HS [facility] Last Admin: 09/07/17 21:09 Dose: Not Given Simethicone (Mylicon -) 160 mg PO QID [facility] Last Admin: 09/07/17 21:05 Dose: 160 mg - Objective Vital Signs: Vital Signs Temperature 98.4 F 09/08/17 06:00 Pulse Rate 66 09/08/17 06:00 Respiratory Rate 20 09/08/17 06:00 Blood Pressure 122/74 09/08/17 06:00 O2 Sat by Pulse Oximetry (%) 96 09/07/17 20:35 Constitutional: Yes: No Distress, Calm Cardiovascular: Yes: Regular Rate and Rhythm, S1, S2 Respiratory: Yes: Regular, Other (coarse BS bilat). No: Wheezes Gastrointestinal: Yes: Normal Bowel Sounds, Soft. No: Tenderness Extremities: Yes: Other (clean right ankle dressing) Neurological: Yes: Alert, Oriented Labs: CBC, BMP 09/08/17 08:00 09/08/17 08:00 INR, PTT INR 1.16 (0.82-1.09) H 09/05/17 07:15 Problem List - Problems (1) Ulcer of right ankle Code(s): L97.319 - NON-PRESSURE CHRONIC ULCER OF RIGHT ANKLE WITH UNSP SEVERITY (2) Bilateral leg ulcer Code(s): L97.919 - NON-PRS CHRONIC ULC UNSP PRT OF R LOW LEG W UNSP SEVERITY; L97.929 - NON-PRS CHRONIC ULC UNSP PRT OF L LOW LEG W UNSP SEVERITY (3) PVD (peripheral vascular disease) Code(s): I73.9 - PERIPHERAL VASCULAR DISEASE, UNSPECIFIED (4) CVA (cerebral vascular accident) Code(s): I63.9 - CEREBRAL INFARCTION, UNSPECIFIED (5) Hypertension Code(s): I10 - ESSENTIAL (PRIMARY) HYPERTENSION (6) Hypoalbuminemia Code(s): E88.09 - OTH DISORDERS OF PLASMA-PROTEIN METABOLISM, NEC (7) Anemia Code(s): D64.9 - ANEMIA, UNSPECIFIED (8) Osteomyelitis Code(s): M86.9 - OSTEOMYELITIS, UNSPECIFIED (9) Cough Code(s): R05 - COUGH Assessment/Plan ID, Vasc SX, Podiatry consults appreciated. Abtx per ID. Local care per Podiatry. To f/u bone BX -to adjust abtx per CX report s/p ECHO. Probable pt would need PICC line and care home abtx treatment. Pulmonary consult appreciated. Case was reviewed with pt's nurse. WBC is trending up, probable secondary to steroids. AM labs
[2017-09-08] MEDS: DOCUSATE SODIUM 100 MG CAPSULE (FP) PO SCH (10:27)
[2017-09-08] MEDS: amLODIPine BESYLATE 2.5 MG TABLET (FP) PO SCH (10:27)
[2017-09-08] MEDS: GABAPENTIN 400 MG CAPSULE (FP) PO SCH ×2 (10:27→21:28)
[2017-09-08] MEDS: SIMETHICONE 80 MG TAB.CHEW (FP) PO SCH ×4 (10:28→21:28)
[2017-09-08] MEDS: HEPARIN NA (PORCINE) 5,000 UNITS/ML 1ML VIAL SQ SCH ×2 (10:28→21:31)
[2017-09-08] MEDS: LACTOBACILLUS ACIDOPHILUS 1 EACH TAB (FP) PO SCH (10:29)
[2017-09-08] MEDS: RANITIDINE HCL 150 MG TABLET (FP) PO SCH (10:29)
[2017-09-08] MEDS: CELECOXIB 100 MG CAPSULE PO SCH ×2 (10:29→22:00)
[2017-09-08] MEDS: MULTIVITAMINS (DAILY MVI) TABLET (FP) PO SCH (10:29)
--- NOTE | 2017-09-08 12:20 | PN ---
Progress Note (short form) - Note Progress Note: Podiatry F/U: Seen/evaluated at bedside, NAD. Persistent pain to R foot. Denies F/V/N/C/SOB/ CP. Afebrile, VSS. S/p R foot debridement of ulcer with bone biopsy. 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 Significant tenderness to palpation. WBC: 13.4 Bone Cx: MRSA, corynebacterium Imp: 87 year old F s/p R foot debridement and bone biopsy for stage 4 pressure ulcer 1. IV abx per ID. Bone cx (+) MRSA 2. Will need treatment for osteomyelitis 3. Posterior splint applied to RLE, some dorsiflexion achieved 4. Rx bactroban QOD 5. Upon discharge will need f/u in wound healing center. 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 Paola Shafer DPM
[2017-09-08] MEDS: COLLAGENASE CLOSTRIDIUM HIST. 30 GRAMS TUBE TP SCH (12:23)
--- NOTE | 2017-09-08 14:26 | PN ---
Progress Note, Physician History of Present Illness: pulmonary alert,comfortable,-resp distress,less cough - Current Medication List Current Medications: Active Medications Acetaminophen (Tylenol -) 650 mg PO TID [facility] Last Admin: 09/08/17 13:59 Dose: 650 mg Albuterol Sulfate (Ventolin 0.083% Nebulizer Soln -) 1 amp NEB Q4H PRN PRN Reason: SHORT OF BREATH/WHEEZING Albuterol/Ipratropium (Duoneb -) 1 amp NEB RQID [facility] Last Admin: 09/08/17 11:10 Dose: 1 amp Amlodipine Besylate (Norvasc -) 2.5 mg PO DAILY [facility] Last Admin: 09/08/17 10:27 Dose: 2.5 mg Celecoxib (Celebrex -) 100 mg PO BID [facility] Last Admin: 09/08/17 10:29 Dose: 100 mg Collagenase (Santyl -) 1 applic TP DAILY [facility] Last Admin: 09/08/17 12:23 Dose: 1 applic Docusate Sodium (Colace -) 300 mg PO DAILY [facility] Last Admin: 09/08/17 10:27 Dose: 300 mg Gabapentin (Neurontin -) 400 mg PO BID [facility] Last Admin: 09/08/17 10:27 Dose: 400 mg Heparin Sodium (Porcine) (Heparin -) 5,000 unit SQ BID [facility] Last Admin: 09/08/17 10:28 Dose: 5,000 unit Hydromorphone HCl (Dilaudid -) 2 mg PO HS PRN PRN Reason: PAIN LEVEL 6-10 Last Admin: 09/07/17 21:58 Dose: 2 mg Hydromorphone HCl (Dilaudid -) 4 mg PO Q3H PRN PRN Reason: PAIN LEVEL 4 - 6 Last Admin: 09/08/17 12:01 Dose: 4 mg Dextrose/Sodium Chloride (D5-Ns -) 1,000 mls @ 50 mls/hr IV ASDIR [facility] Last Admin: 09/07/17 16:36 Dose: Not Given Vancomycin HCl 1,000 mg/ (Dextrose) 250 mls @ 166.667 mls/hr IVPB DAILY@1800 DEBBIE PRN Reason: Protocol Last Admin: 09/07/17 17:14 Dose: 166.667 mls/hr Lactobacillus Acidophilus (Bacid -) 2 tab PO DAILY [facility] Last Admin: 01/25/18 10:29 Dose: 2 tab Methylprednisolone Sodium Succinate (Solu-Medrol -) 40 mg IVPUSH Q8H-IV [facility] Last Admin: 09/08/17 10:02 Dose: 40 mg Multivitamins/Minerals/Vitamin C (Tab-A-Vit -) 1 tab PO DAILY [facility] Last Admin: 09/08/17 10:29 Dose: 1 tab Ondansetron HCl (Zofran -) 4 mg PO TID [facility] Last Admin: 09/08/17 13:59 Dose: 4 mg Ondansetron HCl (Zofran Injection) 4 mg IVPUSH Q6H PRN PRN Reason: NAUSEA AND/OR VOMITING Promethazine HCl (Phenergan Injection -) 12.5 mg IVPB Q6H PRN PRN Reason: NAUSEA-FOR RESCUE AFTER 15 MIN Ranitidine HCl (Zantac -) 150 mg PO DAILY [facility] Last Admin: 09/08/17 10:29 Dose: 150 mg Senna (Senna -) 2 tab PO HS [facility] Last Admin: 09/07/17 21:09 Dose: Not Given Simethicone (Mylicon -) 160 mg PO QID [facility] Last Admin: 09/08/17 13:56 Dose: 80 mg - Objective Vital Signs: Vital Signs Temperature 97.6 F 09/08/17 14:00 Pulse Rate 76 09/08/17 14:00 Respiratory Rate 20 09/08/17 14:00 Blood Pressure 126/71 09/08/17 14:00 O2 Sat by Pulse Oximetry (%) 97 09/08/17 09:00 Constitutional: Yes: Calm, Thin Eyes: Yes: WNL HENT: Yes: WNL Neck: Yes: WNL Cardiovascular: Yes: Regular Rate and Rhythm, S1, S2 Respiratory: Yes: Rales (bibasilar rales), Wheezes (few wheezes) Gastrointestinal: Yes: Normal Bowel Sounds, Soft Extremities: Yes: WNL Edema: No Labs: CBC, BMP 09/08/17 08:00 09/08/17 08:00 INR, PTT INR 1.16 (0.82-1.09) H 09/05/17 07:15 Problem List - Problems (1) Bronchospasm Code(s): J98.01 - ACUTE BRONCHOSPASM (2) Cough Code(s): R05 - COUGH (3) Osteomyelitis Code(s): M86.9 - OSTEOMYELITIS, UNSPECIFIED Assessment/Plan A/P Osteomyelitis r/o Acute Bronchospasm - continue standing nebulizers - medrol q12 - O2 to keep SpO2 >90% - incentive spirometry - antibiotics per ID - outpt PFTs - DVT prophylaxis DR NOONAN
[2017-09-08] MEDS: VANCOMYCIN 1,000 MG in DEXTROSE 5%-WATER - 250 ML IVPB SCH (21:19)
[2017-09-08] MEDS: SENNOSIDES 8.6MG TABLET (FP) PO SCH (21:28)
[2017-09-09] MEDS: HYDROmorphone HCL 2 MG TABLET PO PRN ×6 (02:04→23:05)
[2017-09-09] MEDS: ACETAMINOPHEN 325 MG TABLET (FP) PO SCH ×3 (07:43→23:01)
[2017-09-09] MEDS: ONDANSETRON 4 MG TABLET PO SCH ×3 (07:43→23:01)
[2017-09-09] MEDS: ALBUTEROL SO4 2.5/IPRATROPIUM 0.5 INH SOL 3 ML VIAL.NEB. NEB SCH ×4 (07:56→20:46)
[2017-09-09 08:28] LABS: HEMATOCRIT 28.8 % (32.4-45.2); HEMOGLOBIN 9.2 GM/dL (10.7-15.3); MCH 30.9 pg (25.7-33.7); MCHC 32.1 g/dl (32.0-36.0); MEAN CELL VOLUME 96.2 fl (80-96); MEAN PLT VOLUME 8.3 fl (7.5-11.1); PLATELET COUNT 339 K/MM3 (134-434); RBC 2.99 M/mm3 (3.60-5.2); RDW 14.2 % (11.6-15.6); WHITE BLOOD COUNT 15.1 K/mm3 (4.0-10.0)
[2017-09-09 09:00] LABS: ANION GAP 6 (8-16); BLOOD UREA NITROGEN 16 mg/dL (7-18); CALCIUM 8.1 mg/dL (8.5-10.1); CHLORIDE 104 mmol/L (98-107); CO2 29 mmol/L (21-32); CREATININE 0.6 mg/dL (0.55-1.02); GLUCOSE,RANDOM 120 mg/dL (74-106); POTASSIUM 4.5 mmol/L (3.5-5.1); SODIUM 139 mmol/L (136-145)
[2017-09-09] MEDS ORDERED: PT OWN MED DRAWER 7, Y5N ONE ×2 (09:39→18:18)
[2017-09-09] MEDS: DOCUSATE SODIUM 100 MG CAPSULE (FP) PO SCH (09:42)
[2017-09-09] MEDS: amLODIPine BESYLATE 2.5 MG TABLET (FP) PO SCH (09:43)
[2017-09-09] MEDS: RANITIDINE HCL 150 MG TABLET (FP) PO SCH (09:43)
[2017-09-09] MEDS: CELECOXIB 100 MG CAPSULE PO SCH ×2 (09:43→22:00)
[2017-09-09] MEDS: LACTOBACILLUS ACIDOPHILUS 1 EACH TAB (FP) PO SCH (09:43)
[2017-09-09] MEDS: GABAPENTIN 400 MG CAPSULE (FP) PO SCH ×2 (09:43→23:00)
[2017-09-09] MEDS: MULTIVITAMINS (DAILY MVI) TABLET (FP) PO SCH (09:43)
[2017-09-09] MEDS: SIMETHICONE 80 MG TAB.CHEW (FP) PO SCH ×4 (09:43→22:59)
[2017-09-09] MEDS: HEPARIN NA (PORCINE) 5,000 UNITS/ML 1ML VIAL SQ SCH ×2 (09:44→23:01)
[2017-09-09] MEDS: methylPREDNISolone NA SUCC 40 MG/1 ML VIAL IVPUSH SCH (09:44)
[2017-09-09] MEDS: COLLAGENASE CLOSTRIDIUM HIST. 30 GRAMS TUBE TP SCH (09:56)
--- NOTE | 2017-09-09 10:23 | PN ---
Progress Note, Physician History of Present Illness: Pt w right ankle pain, controlled by pain medication. Pt's cough is improved. Pt w/o fever, chills, SOB, CP, abd pain, diarrhea, constipation. - Current Medication List Current Medications: Active Medications Acetaminophen (Tylenol -) 650 mg PO TID [facility] Last Admin: 09/09/17 07:43 Dose: Not Given Albuterol Sulfate (Ventolin 0.083% Nebulizer Soln -) 1 amp NEB Q4H PRN PRN Reason: SHORT OF BREATH/WHEEZING Albuterol/Ipratropium (Duoneb -) 1 amp NEB RQID [facility] Last Admin: 09/09/17 07:56 Dose: 1 amp Amlodipine Besylate (Norvasc -) 2.5 mg PO DAILY [facility] Last Admin: 09/09/17 09:43 Dose: 2.5 mg Celecoxib (Celebrex -) 100 mg PO BID [facility] Last Admin: 09/09/17 09:43 Dose: 100 mg Collagenase (Santyl -) 1 applic TP DAILY [facility] Last Admin: 09/09/17 09:56 Dose: 1 applic Docusate Sodium (Colace -) 300 mg PO DAILY [facility] Last Admin: 09/09/17 09:42 Dose: 300 mg Gabapentin (Neurontin -) 400 mg PO BID [facility] Last Admin: 09/09/17 09:43 Dose: 400 mg Heparin Sodium (Porcine) (Heparin -) 5,000 unit SQ BID [facility] Last Admin: 09/09/17 09:44 Dose: 5,000 unit Hydromorphone HCl (Dilaudid -) 2 mg PO HS PRN PRN Reason: PAIN LEVEL 6-10 Last Admin: 09/08/17 21:32 Dose: 2 mg Hydromorphone HCl (Dilaudid -) 4 mg PO Q3H PRN PRN Reason: PAIN LEVEL 4 - 6 Last Admin: 09/09/17 08:33 Dose: 4 mg Vancomycin HCl 1,000 mg/ (Dextrose) 250 mls @ 166.667 mls/hr IVPB DAILY@1800 DEBBIE PRN Reason: Protocol Last Admin: 09/08/17 21:19 Dose: 166.667 mls/hr Lactobacillus Acidophilus (Bacid -) 2 tab PO DAILY [facility] Last Admin: 09/09/17 09:43 Dose: 2 tab Methylprednisolone Sodium Succinate (Solu-Medrol -) 40 mg IVPUSH BID [facility] Last Admin: 09/09/17 09:44 Dose: 40 mg Multivitamins/Minerals/Vitamin C (Tab-A-Vit -) 1 tab PO DAILY [facility] Last Admin: 09/09/17 09:43 Dose: 1 tab Ondansetron HCl (Zofran -) 4 mg PO TID [facility] Last Admin: 09/09/17 07:43 Dose: Not Given Ranitidine HCl (Zantac -) 150 mg PO DAILY [facility] Last Admin: 09/09/17 09:43 Dose: 150 mg Senna (Senna -) 2 tab PO HS [facility] Last Admin: 09/08/17 21:28 Dose: 2 tab Simethicone (Mylicon -) 80 mg PO QID [facility] Last Admin: 09/09/17 09:43 Dose: 80 mg - Objective Vital Signs: Vital Signs Temperature 98.3 F 09/09/17 06:16 Pulse Rate 75 09/09/17 06:16 Respiratory Rate 20 09/09/17 06:16 Blood Pressure 140/78 09/09/17 06:16 O2 Sat by Pulse Oximetry (%) 97 09/08/17 21:00 Constitutional: Yes: No Distress, Calm Cardiovascular: Yes: Regular Rate and Rhythm, S1, S2 Respiratory: Yes: Regular, Other (coarse BS). No: Rales Gastrointestinal: Yes: Normal Bowel Sounds, Soft. No: Tenderness Extremities: Yes: Other (clean right ankle dressing) Neurological: Yes: Alert, Oriented Labs: CBC, BMP 09/09/17 06:30 09/09/17 06:30 INR, PTT INR 1.16 (0.82-1.09) H 09/05/17 07:15 Problem List - Problems (1) Ulcer of right ankle Code(s): L97.319 - NON-PRESSURE CHRONIC ULCER OF RIGHT ANKLE WITH UNSP SEVERITY (2) Bilateral leg ulcer Code(s): L97.919 - NON-PRS CHRONIC ULC UNSP PRT OF R LOW LEG W UNSP SEVERITY; L97.929 - NON-PRS CHRONIC ULC UNSP PRT OF L LOW LEG W UNSP SEVERITY (3) PVD (peripheral vascular disease) Code(s): I73.9 - PERIPHERAL VASCULAR DISEASE, UNSPECIFIED (4) CVA (cerebral vascular accident) Code(s): I63.9 - CEREBRAL INFARCTION, UNSPECIFIED (5) Hypertension Code(s): I10 - ESSENTIAL (PRIMARY) HYPERTENSION (6) Hypoalbuminemia Code(s): E88.09 - OTH DISORDERS OF PLASMA-PROTEIN METABOLISM, NEC (7) Anemia Code(s): D64.9 - ANEMIA, UNSPECIFIED (8) Osteomyelitis Code(s): M86.9 - OSTEOMYELITIS, UNSPECIFIED (9) Cough Code(s): R05 - COUGH Assessment/Plan ID, Vasc SX, Podiatry consults appreciated. Abtx per ID. Local care per Podiatry. To f/u bone BX -to adjust abtx per CX report Pt would need PICC line and custodial abtx treatment. Pulmonary consult appreciated- pt on short course of steroids. s/p ECHO. Case was reviewed with pt's nurse. WBC is trending up, probable secondary to steroids. ESR is improving
[2017-09-09 11:58] LABS: ERYTHROCYTE SEDIMENTATION RATE 74 mm/hr (0-30)
[2017-09-09] MEDS ORDERED: PICC LINE 8 ML FLUSH PROTOCOL IVPUSH PRN (13:30)
--- NOTE | 2017-09-09 13:34 | PN ---
Progress Note (short form) - Note Progress Note: cough ilmlproved Vital Signs Period Temp Pulse Resp BP Sys/Beaver Pulse Ox Last 24 Hr 97.6 F-98.4 F 75-102 20-20 122-140/59-78 97-97 cor-rrr lungs clear abd soft,nt ext +dressing right foot CBC, BMP 09/09/17 06:30 09/09/17 06:30 Microbiology 09/05/17 15:44 Biopsy Tissue Gram Stain - Final 09/05/17 15:44 Biopsy Tissue Tissue Culture - Final Mr S Aureus 09/05/17 15:44 Biopsy Tissue Anaerobic Culture - Final NO ANAEROBES WERE ISOLATED 09/05/17 15:44 Bone Gram Stain - Final 09/05/17 15:44 Bone Tissue Culture - Final Mr S Aureus Corynebacterium Striatum 09/05/17 15:44 Bone Anaerobic Culture - Final NO ANAEROBES WERE ISOLATED 08/29/17 16:10 Ankle - Right Gram Stain - Final 08/29/17 16:10 Ankle - Right Wound Culture - Final Mr S Aureus Diphtheroid/Corynebacterium 08/29/17 19:05 Blood - Peripheral Venous Blood Culture - Final NO GROWTH AFTER 5 DAYS INCUBATION 08/29/17 18:40 Blood - Peripheral Venous Blood Culture - Final NO GROWTH AFTER 5 DAYS INCUBATION a/p osteomyelitis failed one month of po bactrim Bone biopsy noted- MRSA osteo picc line and vancomycin for 6 weeks follow vanco levels and esr/crp in [place] [facility] f/u of foot d/w Dr Zaragoza d/w patient- she is agreeable will order picc line Problem List - Problems (1) Osteomyelitis Code(s): M86.9 - OSTEOMYELITIS, UNSPECIFIED (2) Ulcer of right ankle Code(s): L97.319 - NON-PRESSURE CHRONIC ULCER OF RIGHT ANKLE WITH UNSP SEVERITY
--- NOTE | 2017-09-09 14:38 | PN ---
Progress Note (short form) - Note Progress Note: PULMONARY VSS/AFEBRILE PALE/POOR DENTITION ANICTERIC CLEAR LUNG CURRIE S1S2 BS+ RIGHT LOWER EXT BANDAGED MEDS/LABS/IMAGES/MICRO/NOTES REVIEWED (1) Bronchospasm Code(s): J98.01 - ACUTE BRONCHOSPASM (2) Cough Code(s): R05 - COUGH (3) Osteomyelitis Code(s): M86.9 - OSTEOMYELITIS, UNSPECIFIED Assessment/Plan A/P Osteomyelitis/antibiotics Resp status stable bronchodilators taper steroids as outpatient Lynne BRYANT MD
[2017-09-09] MEDS: VANCOMYCIN 1,000 MG in DEXTROSE 5%-WATER - 250 ML IVPB SCH (18:22)
[2017-09-09] MEDS: SENNOSIDES 8.6MG TABLET (FP) PO SCH (23:00)
[2017-09-10] MEDS: ALBUTEROL SO4 2.5/IPRATROPIUM 0.5 INH SOL 3 ML VIAL.NEB. NEB SCH ×3 (07:54→16:06)
[2017-09-10] MEDS: ACETAMINOPHEN 325 MG TABLET (FP) PO SCH ×2 (08:13→15:05)
[2017-09-10] MEDS: ONDANSETRON 4 MG TABLET PO SCH ×2 (08:13→15:06)
[2017-09-10] MEDS: HYDROmorphone HCL 2 MG TABLET PO PRN ×2 (08:39→15:05)
--- NOTE | 2017-09-10 09:51 | DS ---
Physical Examination Vital Signs: Vital Signs Temperature 98.7 F 09/10/17 06:00 Pulse Rate 85 09/10/17 06:00 Respiratory Rate 18 09/10/17 06:00 Blood Pressure 138/72 09/10/17 06:00 O2 Sat by Pulse Oximetry (%) 97 09/09/17 09:00 Findings/Remarks: Pt asking for pain medication to be available at times. Pt w/o fever. chill. SOB, CP, abd pain, N, V. Case care was d/w pt's hospital nurse; pending [place] approval for transfer back to [place]. Case was d/w [place] 3N nurse (Raysa); pharmacy name was received and Vanco was order ([place] pharmacy is closing early today and is not opened on Tuesday). Time spent for coordinating pt's care: over 45 minutes. Constitutional: Yes: No Distress, Calm Cardiovascular: Yes: Regular Rate and Rhythm, S1, S2 Respiratory: Yes: Regular, Other (coarse BS). No: Rales Gastrointestinal: Yes: Normal Bowel Sounds, Soft. No: Tenderness Extremities: Yes: Other (clean right ankle dressing) Edema: No Labs: CBC, BMP 09/09/17 06:30 09/09/17 06:30 Discharge Summary Reason For Visit: WOUND Current Active Problems Anemia (Acute) Bronchospasm (Acute) Cough (Acute) Hypertension (Acute) Hypoalbuminemia (Acute) Osteomyelitis (Acute) PVD (peripheral vascular disease) (Acute) Wound abscess (Acute) Procedures: Principal: Right leg MRI. Rigth foot XR. CXR Hospital Course: Pt was sent [facility] (by Dr. Tracy) to ER for evaluation of right ankle ulcer, R/O OM, after she was treated with Bactrim ( at [place]) for 4 weeks. Pt was admitted, evaluated by ID (Dr. Ferrer), Podiatry (Dr. Robert), Sx ( Dr. Tracy); pt underwent OR boner BX and wound debridment ; bone BX + for MRSA. Pt had PICC line placed. Pt with cough, evaluated by Pulmonary (Dr. Marin/ [place]), was given a trial of steroids, and felt better; steroids would be tapered off; pt would need further evaluation. [facility], F/u with Wound center next week. To monitor Vanco level and ESR/ CRP weekly. Condition: Fair - Instructions Diet, Activity, Other Instructions: Local leg wound care per hospital instructions. Weekly Vanco level, ESR, CRP,CBC, CMP Resume diet Referrals: Tiburcio Zaragoza MD [Primary Care Provider] - Hayden Shafer MD [Staff Physician] - (this coming week in [facility] at [facility]) Pito Marin MD [Staff Physician] - (in 2-4 weeks) Disposition: CUSTODIAL FACILITY - Home Medications Comprehensive Discharge Medication List: Ambulatory Orders this list might NOT be accurate. Gabapentin [Neurontin -] 400 mg PO BID 01/21/14 Sennosides [Senna -] 1 mg PO HS 01/21/14 Simethicone [Gas Relief] 2 tab PO QID 01/21/14 Acetaminophen [Tylenol] 650 mg PO TID 08/29/17 Amlodipine Besylate [Norvasc -] 2.5 mg PO DAILY 08/29/17 Ascorbate Calcium [Vitamin C] 500 mg PO DAILY 08/29/17 Bacitracin - [Bacitracin Topical Ointment -] 1 applic TP DAILY 08/29/17 Calcium Polycarbophil [Fiber Laxative] 625 mg PO HS 08/29/17 Celecoxib [Celebrex] 100 mg PO BID 08/29/17 Cholecalciferol (Vitamin D3) [Vitamin D3] 1,000 unit PO DAILY 08/29/17 Collagenase Clostridium Hist. [Santyl] 1 applic TP DAILY 08/29/17 Cyanocobalamin (Vitamin B-12) [Vitamin B-12] 1,000 mcg PO DAILY 08/29/17 Docusate Liquid [Colace Liquid -] 300 mg PO HS 08/29/17 Heparin Sodium,Porcine/Pf [Heparin Sod 5,000 Unit/ 0.5 ml] 5,000 unit SQ BID Hydromorphone [Dilaudid -] 4 mg PO Q4H 08/29/17 Lactobacillus Rhamnosus GG [Culturelle] 2 each PO DAILY 08/29/17 Multivitamins [Tab-A-Vit -] 1 tab PO DAILY 08/29/17 Ondansetron [Zofran -] 4 mg PO TID 08/29/17 Ranitidine HCl 150 mg PO DAILY 08/29/17 Vit B Comp/C/Folic/Iron/Vit E [Vitamin B Complex Tablet] 1 each PO DAILY
[2017-09-10] MEDS ORDERED: HYDROmorphone HCL 2 MG TABLET PO PRN ×2 (10:00→16:02)
[2017-09-10] MEDS ORDERED: predniSONE 20 MG TABLET (UD) PO SCH (10:00)
[2017-09-10] MEDS: DOCUSATE SODIUM 100 MG CAPSULE (FP) PO SCH (10:52)
[2017-09-10] MEDS: GABAPENTIN 400 MG CAPSULE (FP) PO SCH (10:53)
[2017-09-10] MEDS: MULTIVITAMINS (DAILY MVI) TABLET (FP) PO SCH (10:53)
[2017-09-10] MEDS: RANITIDINE HCL 150 MG TABLET (FP) PO SCH (10:53)
[2017-09-10] MEDS: LACTOBACILLUS ACIDOPHILUS 1 EACH TAB (FP) PO SCH (10:53)
[2017-09-10] MEDS: amLODIPine BESYLATE 2.5 MG TABLET (FP) PO SCH (10:54)
[2017-09-10] MEDS: HEPARIN NA (PORCINE) 5,000 UNITS/ML 1ML VIAL SQ SCH (10:54)
[2017-09-10] MEDS: COLLAGENASE CLOSTRIDIUM HIST. 30 GRAMS TUBE TP SCH ×3 (10:57→11:02)
[2017-09-10] MEDS: SIMETHICONE 80 MG TAB.CHEW (FP) PO SCH ×3 (11:00→18:34)
[2017-09-10] MEDS: CELECOXIB 100 MG CAPSULE PO SCH (11:03)
[2017-09-10 15:34] VITALS: BP 101/57; PULSE 82; TEMP 98.2
[2017-09-10] MEDS: VANCOMYCIN 1,000 MG in DEXTROSE 5%-WATER - 250 ML IVPB SCH (18:37)
== END 2017-09-10 18:45 | DRG 981 ==
LOC: JER 13:16 → JERBED 16:46 → J5S 08-30 20:00 → J6S 09-02 23:38 → J8W 09-08 15:01
PROVIDERS: ADMIT Specialist; ATTEND Specialist
PROC: 0YB Anatomical Regions, Lower Extremities, Excision (ICD-10-PCS; 2017-09-05)
PROC: 0LBV0ZZ Excision of Right Foot Tendon, Open Approach (ICD-10-PCS; principal; 2017-09-05 14:00)
PROC: 02HV33Z Insertion of Infusion Device into Superior Vena Cava, Percutaneous Approach (ICD-10-PCS; 2017-09-09)
PROC: B518YZA Fluoroscopy of Superior Vena Cava using Other Contrast, Guidance (ICD-10-PCS; 2017-09-09)
DX: L89.514 Pressure ulcer of right ankle, stage 4 (principal); M86.8X7 Other osteomyelitis, ankle and foot; I10 Essential (primary) hypertension; I73.9 Peripheral vascular disease, unspecified; Z86.73 Personal history of transient ischemic attack (TIA), and cerebral infarction without residual deficits; D64.9 Anemia, unspecified; E88.09 Other disorders of plasma-protein metabolism, not elsewhere classified; J98.01 Acute bronchospasm
CPT/HCPCS: 36415; 36569; 71045-TC; 71045-TC-FY; 71046-TC-FY; 73630-TC-RT-FY; 73721-RT-TC; 77001-TC-FY; 80048; 80053; 82272; 82607; 82746; 83540; 83550; 85025; 85027; 85044; 85610; 85651; 86140; 86850; 86900; 86901; 86922; 87040; 87070; 87075; 87077; 87186; 87205; 93005; 93010; 93306-TC; 94010; 94640; 94760; 99284-25; C1751; G0463-25; G0480; J1644

== ENCOUNTER 2017-10-04 11:07 | Emergency (ER) | payer OTHER ==
[2017-10-04 11:41] VITALS: BP 119/74; PULSE 83; TEMP 98.9; BMI 20.7
--- NOTE | 2017-10-04 12:28 | PDOC ---
History of Present Illness - General History Source: Patient Exam Limitations: No Limitations - History of Present Illness Initial Comments: 10/04/17 12:26 The patient is an 87F with a PMH of HTN, osteo (on vanc via PICC line), multiple wounds (L and R foot) who presents to the ER via her podiatrists office , Dr. Espino. The patient states that her gamb cutter sent her because he thought her R hip was out of place. She denies any current complaints including R hip pain, numbness, tingling, weakness, coldness in her foot/distal extremity. 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) Cardiac Disorders: No CVA: No COPD: No CHF: No Dementia: No Diabetes: No GI Disorders: No Disorders: No HTN: Yes Hypercholesterolemia: No Liver Disease: No Seizures: No Thyroid Disease: No - Surgical History Abdominal Surgery: Yes (appendectomy 05/2014) Appendectomy: Yes Cardiac Surgery: No Cholecystectomy: Yes Lung Surgery: No Neurologic Surgery: No Orthopedic Surgery: Yes (bilateral hip knee replacement) - Immunization History Immunization Up to Date: Yes - Suicide/Smoking/Psychosocial Hx Smoking History: Never smoked Have you smoked in the past 12 months: No Hx Alcohol Use: No Drug/Substance Use Hx: No Substance Use Type: None Hx Substance Use Treatment: No <Cezar Way - Last Filed: 10/04/17 13:39> <Nargis Gipson - Last Filed: 10/04/17 14:04> - Past Medical History Allergies/Adverse Reactions: Allergies Allergy/AdvReac Type Severity Reaction Status Date / Time No Known Allergies Allergy Verified 10/04/17 11:37 Home Medications: Ambulatory Orders Gabapentin [Neurontin -] 400 mg PO BID 01/21/14 Sennosides [Senna -] 1 mg PO HS 01/21/14 Simethicone [Gas Relief] 2 tab PO QID 01/21/14 Acetaminophen [Tylenol] 650 mg PO TID 08/29/17 Amlodipine Besylate [Norvasc -] 2.5 mg PO DAILY 08/29/17 Ascorbate Calcium [Vitamin C] 500 mg PO DAILY 08/29/17 Calcium Polycarbophil [Fiber Laxative] 625 mg PO HS 08/29/17 Celecoxib [Celebrex] 100 mg PO BID 08/29/17 Cholecalciferol (Vitamin D3) [Vitamin D3] 1,000 unit PO DAILY 08/29/17 Cyanocobalamin (Vitamin B-12) [Vitamin B-12] 1,000 mcg PO DAILY 08/29/17 Docusate Liquid [Colace Liquid -] 300 mg PO HS 08/29/17 Heparin Sodium,Porcine/Pf [Heparin Sod 5,000 Unit/ 0.5 ml] 5,000 unit SQ BID Multivitamins [Multivit ([facility] Formulary)] 1 tab PO DAILY 08/29/17 Ondansetron [Zofran -] 4 mg PO TID 08/29/17 Ranitidine HCl 150 mg PO DAILY 08/29/17 Vit B Comp/C/Folic/Iron/Vit E [Vitamin B Complex Tablet] 1 each PO DAILY Albuterol 2.5/Ipratropium 0.5 [Duoneb -] 1 amp NEB RQID PRN 10 Days amp HYDROmorphone [Dilaudid -] 2 mg PO Q3H PRN #30 tablet MDD 6 09/10/17 HYDROmorphone [Dilaudid -] 4 mg PO Q3H PRN #30 tablet MDD 6 09/10/17 Lactobacillus Rhamnosus GG [Culturelle] 2 each PO DAILY 60 Days capsule Picc Line Flush [Picc Line Flush -] 8 ml IVPUSH PRN PRN ml 09/10/17 Vancomycin 1,000 mg IVPB DAILY@1800 #42 vial MDD 1 09/10/17 predniSONE [Deltasone -] See Taper PO DAILY 4 Days tablet 09/10/17 Mupirocin Ointment [Bactroban Ointment (For Decolonization) -] 1 applic TP BID 09/20/17 Review of Systems - Review of Systems Able to Perform ROS?: Yes Comments:: 10/04/17 12:47 GENERAL/CONSTITUTIONAL: No fever or chills. No weakness. HEAD, EYES, EARS, NOSE AND THROAT: No change in vision. No ear pain or discharge. No sore throat. CARDIOVASCULAR: No chest pain, palpitations, or lightheadedness. RESPIRATORY: No cough, wheezing, shortness of breath, or hemoptysis. GASTROINTESTINAL: No nausea, vomiting, diarrhea, constipation, or abdominal pain. GENITOURINARY: No dysuria, frequency, hematuria, or change in urination. MUSCULOSKELETAL: Positive for polyarthritis. SKIN: Positive for b/l wounds on LE. NEUROLOGIC: No headache, numbness, tingling, weakness, loss of consciousness, or change in strength/sensation. ENDOCRINE: No increased thirst. No abnormal weight change. HEMATOLOGIC/LYMPHATIC: No anemia, easy bleeding, or history of blood clots. ALLERGIC/IMMUNOLOGIC: No hives or skin allergy. Is the patient limited Ukrainian proficient: No <Cezar Way - Last Filed: 10/04/17 13:39> *Physical Exam - Vital Signs Last Vital Signs Temp Pulse Resp BP Pulse Ox 98.9 F 83 18 119/74 96 10/04/17 11:37 10/04/17 11:37 10/04/17 11:37 10/04/17 11:37 10/04/17 11:37 - Physical Exam Comments: 10/04/17 13:19 Exam limited by patient in wheelchair and refusing to get out. GENERAL: Well developed, well nourished. Awake and alert. No acute distress. HEENT: Normocephalic, atraumatic. Hearing grossly normal. Moist mucous membranes. PERRLA, EOMI. No conjunctival pallor. Sclera are non-icteric. NECK: Supple. Full ROM. No JVD. CARDIOVASCULAR: Regular rate and rhythm. No murmurs, rubs, or gallops. 2+ pulse DP pulses b/l. PULMONARY: No evidence of respiratory distress. Lungs clear to auscultation bilaterally. No wheezing, rales or rhonchi. ABDOMINAL: Soft. Non-tender. Non-distended. No rebound or guarding. MUSCULOSKELETAL: Normal range of motion at all joints. No bony deformities or tenderness. EXTREMITIES: No cyanosis. No clubbing. No edema. No calf tenderness. Wound on L calf laterally, stage 2, 3x5cm circular. Second wound on R dorsal surface 3x3 circular stage 3. Entire R leg inwardly rotated. SKIN: Warm and dry. Normal capillary refill. No rashes. No jaundice. NEUROLOGICAL: Alert, awake, appropriate. Cranial nerves 2-12 intact. Normal speech. PSYCHIATRIC: Cooperative. Good eye contact. Appropriate mood and affect. <Cezar Way - Last Filed: 10/04/17 13:39> - Vital Signs Last Vital Signs Temp Pulse Resp BP Pulse Ox 98.9 F 83 18 119/74 96 10/04/17 11:37 10/04/17 11:37 10/04/17 11:37 10/04/17 11:37 10/04/17 11:37 <Nargis Gipson - Last Filed: 10/04/17 14:04> ED Treatment Course - RADIOLOGY Radiology Studies Ordered: Category Date Time Status HIP & PELVIS-RIGHT [RAD] Stat Radiology 10/04/17 12:24 Ordered <[address]ezar Way - Last Filed: 10/04/17 13:39> - Medications Given in the ED: ED Medications Discontinued Medications Generic Name Dose Route Start Last Admin Trade Name Freq PRN Reason Stop Dose Admin Hydromorphone HCl 4 mg 10/04/17 12:28 10/04/17 12:41 Dilaudid - PO 10/04/17 12:29 4 mg ONCE ONE Administration <Nargis Gipson - Last Filed: 10/04/17 14:04> Medical Decision Making - Medical Decision Making 10/04/17 13:17 The patient is an 87F with a PMH including multiple joint replacements who presents with months of having her R leg inwardly rotated. She is here for imaging to rule out occult dislocation. Dr. Espino (pt's gamb cutter) spoke with Dr. Roblero (pt ortho surgeon) who requests XR's of the entire R leg. Orders placed. 10/04/17 13:34 I have spoken to Ifeoma (3N nurse at [facility]) and explained to her the plan to get outpatient XR's since the patient is refusing to get XR's in our facility. The nurse and patient agrees to that plan. <Cezar Way - Last Filed: 10/04/17 13:39> - Medical Decision Making 10/04/17 14:02 Dr. Shafer was paged and notified via phone service. <Nargis Gipson - Last Filed: 10/04/17 14:04> *DC/Admit/Observation/Transfer - Discharge Dispostion Admit: No <Cezar Way - Last Filed: 10/04/17 13:39> <Nargis Gipson - Last Filed: 10/04/17 14:04> Diagnosis at time of Disposition: Osteomyelitis Qualifiers: Osteomyelitis type: other Osteomyelitis location: multiple sites Qualified Code (s): M86.8X0 - Other osteomyelitis, multiple sites - Discharge Dispostion Disposition: HOME Condition at time of disposition: Stable - Referrals Referrals: Tiburcio Zaragoza MD [Primary Care Provider] - - Patient Instructions Additional Instructions: Please return to the ER if symptoms persist, worsen, or new symptoms arise. Please follow up with your primary care physician in 2-3 days. Please return to the ER if you have any signs or symptoms of chest pain, shortness of breath, uncontrollable fever, chills, nausea, vomiting, numbness, tingling, or weakness in any part of your body, changes in vision, or slurred speech. The X-rays you should have are: R hip and pelvis R femur R knee (3 views) R tib/fib R foot and ankle - Post Discharge Activity
[2017-10-04] MEDS ORDERED: HYDROmorphone HCL 2 MG TABLET ONE (12:39)
--- NOTE | 2017-10-04 16:05 | PDOC ---
Attending Attestation - Resident Resident Name: FlorentinrjCezar - ED Attending Attestation I have performed the following: I have examined & evaluated the patient, The case was reviewed & discussed with the resident, I agree w/resident's findings & plan, Exceptions are as noted - HPI HPI: 10/04/17 16:02 Ms lynn was sent to the Er from the podiatry office for evaluation of her right hip Pt has a h/o PVD, LE ulcers, h/o CVA S/p hip replacement in the Pt was seen today by podiatry, noted to have internal rotation of her right hip Pt states movement is painful She states, she has been this way for months She denies trauma - Physicial Exam PE: 10/04/17 16:11 GENERAL: The patient is in no acute distress. HEAD: Normal with no signs of trauma. EYES: PERRLA, EOMI, sclera anicteric, conjunctiva clear. NECK: Normal range of motion, supple without lymphadenopathy, JVD, or masses. LUNGS: Breath sounds equal, clear to auscultation bilaterally. No wheezes, and no crackles. HEART:Regular rate and rhythm, normal S1 and S2 without murmur, rub or gallop. ABDOMEN: Soft, nontender, EXTREMITIES: Right hip internal rotation, toes down going SKIN: Dorsum of right foor open wound measuring 2cm in diameter, no drainage Also, left calf skin defect measuring 4cm, no surrounding erythema - Medical Decision Making 10/04/17 16:13 This patient was sent from the reactor service operator's office for x-rays per request of Dr Seymour Ms lynn refuses to get out of the wheel chair, stating she must have a tita lift The sterilization tech refuses to perform the x rays with the patient's pants on Pt refuses to remove pants Pt will be sent back to the half-way where x rays can be ordered there residential alerted to the plan clinical impression: chronic hip deformity, initial presentation
== END 2017-10-04 13:48 ==
LOC: JER 11:07
DX: M21.851 Other specified acquired deformities of right thigh (principal); Z96.643 Presence of artificial hip joint, bilateral; M13.0 Polyarthritis, unspecified; M86.9 Osteomyelitis, unspecified; Z79.2 Long term (current) use of antibiotics; I10 Essential (primary) hypertension; Z85.820 Personal history of malignant melanoma of skin; T14.8XXA Other injury of unspecified body region, initial encounter; Z99.3 Dependence on wheelchair
CPT/HCPCS: 99282-25

== ENCOUNTER 2017-11-11 11:06 | Inpatient (IN) | payer OTHER ==
[2017-11-11 11:11] VITALS: BMI 20.4
--- NOTE | 2017-11-11 11:31 | PDOC ---
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 Palmer Tracy. The patient came with increasing pain, swelling, redness, and warmth in the right leg and was sent to the ER for admission to the hospital. While was noted to have a fever while at the wound center. Patient reports that she is eating and drinking normally. The patient denies any chills, nausea, vomiting, diarrhea, or abdominal pain. Denies any chest pain or shortness of breath. Allergies: NKA PCP: Dr. 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) Cardiac Disorders: No CVA: No COPD: No CHF: No DVT: No Dementia: No Diabetes: No GI Disorders: No Disorders: No HTN: Yes Hypercholesterolemia: No Liver Disease: No Seizures: No Thyroid Disease: No - Surgical History Abdominal Surgery: Yes (appendectomy 05/2014) Appendectomy: Yes Cardiac Surgery: No Cholecystectomy: Yes Lung Surgery: No Neurologic Surgery: No Orthopedic Surgery: Yes (bilateral hip knee replacement) - Immunization History Immunization Up to Date: Yes - Suicide/Smoking/Psychosocial Hx Smoking History: Never smoked Have you smoked in the past 12 months: No Information on smoking cessation initiated: No Hx Alcohol Use: No Drug/Substance Use Hx: No Substance Use Type: None Hx Substance Use Treatment: No <Angelika Haro - Last Filed: 11/13/17 19:11> - Past Medical History Allergies/Adverse Reactions: Allergies Allergy/AdvReac Type Severity Reaction Status Date / Time No Known Allergies Allergy Verified 11/11/17 11:07 Home Medications: Ambulatory Orders Gabapentin [Neurontin -] 400 mg PO BID 01/21/14 Sennosides [Senna -] 1 mg PO HS 01/21/14 Simethicone [Gas Relief] 2 tab PO QID 01/21/14 Acetaminophen [Tylenol] 650 mg PO TID 08/29/17 Amlodipine Besylate [Norvasc -] 2.5 mg PO DAILY 08/29/17 Ascorbate Calcium [Vitamin C] 500 mg PO DAILY 08/29/17 Calcium Polycarbophil [Fiber Laxative] 625 mg PO HS 08/29/17 Celecoxib [Celebrex] 100 mg PO BID 08/29/17 Cholecalciferol (Vitamin D3) [Vitamin D3] 1,000 unit PO DAILY 08/29/17 Cyanocobalamin (Vitamin B-12) [Vitamin B-12] 1,000 mcg PO DAILY 08/29/17 Docusate Liquid [Colace Liquid -] 300 mg PO HS 08/29/17 Multivitamins [Multivit (RH Formulary)] 1 tab PO DAILY 08/29/17 Ondansetron [Zofran -] 4 mg PO TID 08/29/17 Ranitidine HCl 150 mg PO DAILY 08/29/17 Vit B Comp/C/Folic/Iron/Vit E [Vitamin B Complex Tablet] 1 each PO DAILY Albuterol 2.5/Ipratropium 0.5 [Duoneb -] 1 amp NEB RQID PRN 10 Days amp HYDROmorphone [Dilaudid -] 2 mg PO Q3H PRN #30 tablet MDD 6 09/10/17 HYDROmorphone [Dilaudid -] 4 mg PO Q3H PRN #30 tablet MDD 6 09/10/17 Lactobacillus Rhamnosus GG [Culturelle] 2 each PO DAILY 60 Days capsule predniSONE [Deltasone -] See Taper PO DAILY 4 Days tablet 09/10/17 Mupirocin Ointment [Bactroban Ointment (For Decolonization) -] 1 applic TP BID 09/20/17 Review of Systems - Review of Systems Able to Perform ROS?: Yes Comments:: 11/11/17 12:06 GENERAL/CONSTITUTIONAL: (+)Fever. No: chills, weakness, loss of appetite. HEAD, EYES, EARS, NOSE AND THROAT: No: change in vision, ear pain, discharge, sore throat, throat swelling. CARDIOVASCULAR: No: chest pain, lightheadedness, palpitations, syncope RESPIRATORY: No: cough, shortness of breath, wheezing, hemoptysis, stridor. GASTROINTESTINAL: No: nausea, vomiting, abdominal cramping, diarrhea, rectal bleeding, constipation. GENITOURINARY: No: dysuria, hematuria, frequency, urgency, flank pain. MUSCULOSKELETAL: No: back pain, neck pain, joint pain, muscle swelling or pain SKIN AND BREASTS: (+)Multiple ulcers right lower extremity. No: easy bruising. NEUROLOGIC: No: headache, vertigo, paresthesias, weakness ENDOCRINE: No: unexplained weight gain or loss HEMATOLOGIC/LYMPHATIC: No: anemia, easy bleeding, swelling nodes. <Nargis Gipson - Last Filed: 11/11/17 12:53> *Physical Exam - Vital Signs Last Vital Signs Temp Pulse Resp BP Pulse Ox 98.0 F 100 H 18 117/61 93 L 11/11/17 11:07 11/11/17 11:07 11/11/17 11:07 11/11/17 11:07 11/11/17 11:07 - Physical Exam Comments: 11/11/17 12:08 GENERAL: The patient is in no acute distress. HEAD: Normal with no signs of trauma. EYES: PERRLA, EOMI, sclera anicteric, conjunctiva clear. ENT: Ears normal, nares patent, oropharynx clear without exudates. Moist mucous membranes. NECK: Normal range of motion, supple without lymphadenopathy, JVD, or masses. LUNGS: Breath sounds equal, clear to auscultation bilaterally. No wheezes, and no crackles. HEART:Regular rate and rhythm, normal S1 and S2 without murmur, rub or gallop. ABDOMEN: Soft, nontender, normoactive bowel sounds. No guarding, no rebound. EXTREMITIES: (+)Seated in wheel chair, right leg internally rotated, downward going toes. NEUROLOGICAL: Awake, alert, answers questions. Cranial nerves II through XII grossly intact. Normal speech. No focal neurological deficits. MUSCULOSKELETAL: Back non-tender to palpation, no CVA tenderness. SKIN: (+)Please see note by Dr. Palmer Tracy because the right lower extremity is bandaged. Warm, Dry, normal turgor. <Nargis Gipson - Last Filed: 11/11/17 12:53> - Vital Signs Last Vital Signs Temp Pulse Resp BP Pulse Ox 98.0 F 100 H 18 117/61 93 L 11/11/17 11:07 11/11/17 11:07 11/11/17 11:07 11/11/17 11:07 11/11/17 11:07 <Angelika Haro - Last Filed: 11/13/17 19:11> ED Treatment Course - LABORATORY CBC & Chemistry Diagram: 11/11/17 12:31 11/11/17 12:31 <Nargis Gipson - Last Filed: 11/11/17 12:53> - LABORATORY CBC & Chemistry Diagram: 11/13/17 06:45 11/13/17 06:45 <Angelika Haro - Last Filed: 11/13/17 19:11> Medical Decision Making - Medical Decision Making 11/11/17 11:52 Ms Lynn is an 87 yo F with a history of multiple lower extremity ulcers, right osteomyelitis, on Vanco x 6 weeks Pt being followed by Podiatry, ID and Wound clinic Pt noted today to have worsening ulcers, visible bone, erythema, swelling, increased pain ? fevers Pt sent to the ER for IV abx Call placed to PMD Will admit to his service Call placed to Dr Ferrer for abx recommendation 11/11/17 14:06 Laboratory Tests 11/11/17 11/11/17 12:31 12:31 WBC 15.9 H Hgb 12.9 D Hct 39.4 D Plt Count 342 Neutrophils % 85.5 H Lymphocytes % 7.1 L Sodium 135 L Potassium 4.3 Chloride 100 Carbon Dioxide 28 Anion Gap 7 L BUN 27 H Creatinine 0.6 Random Glucose 100 11/11/17 14:06 Abx per ID (Case reviewed with Dr Ferrer) EKG: SR, rate of 81 bpm, LAD, no ST elevations or depressions, t wave up right Admit to Med Surg Clinical impression: lower extremity osteomyelitis <Angelika Haro - Last Filed: 11/13/17 19:11> *DC/Admit/Observation/Transfer - Attestations Scribe Attestion: 11/11/17 12:16 Documentation prepared by Nargis Gipson, acting as site medical director for Angelika Haro MD. <Nargis Gipson - Last Filed: 11/11/17 12:53> - Discharge Dispostion Admit: Yes <Angelika Haro - Last Filed: 11/13/17 19:11> Diagnosis at time of Disposition: Cellulitis Qualifiers: Site of cellulitis: extremity Site of cellulitis of extremity: lower extremity Laterality: right Qualified Code(s): L03.115 - Cellulitis of right lower limb Osteomyelitis Qualifiers: Osteomyelitis type: other Osteomyelitis location: other site Qualified Code(s) : M86.8X8 - Other osteomyelitis, other site - Discharge Dispostion Condition at time of disposition: Stable
[2017-11-11 12:42] LABS: BASO % 0.4 % (0-2.0); EOS % 0.5 % (0-4.5); HEMATOCRIT 39.4 % (32.4-45.2); HEMOGLOBIN 12.9 GM/dL (10.7-15.3); LYMPH % 7.1 % (8-40); MCH 32.8 pg (25.7-33.7); MCHC 32.7 g/dl (32.0-36.0); MEAN CELL VOLUME 100.3 fl (80-96); MEAN PLT VOLUME 8.5 fl (7.5-11.1); MONO % 6.5 % (3.8-10.2); NEUT % 85.5 % (42.8-82.8); PLATELET COUNT 342 K/MM3 (134-434); RBC 3.93 M/mm3 (3.60-5.2); RDW 13.6 % (11.6-15.6); WHITE BLOOD COUNT 15.9 K/mm3 (4.0-10.0)
[2017-11-11 13:03] LABS: ALBUMIN 2.4 g/dl (3.4-5.0); ALK PHOS 184 U/L (45-117); ANION GAP 7 (8-16); BILIRUBIN,TOTAL 0.3 mg/dL (0.2-1.0); BLOOD UREA NITROGEN 27 mg/dL (7-18); CALCIUM 9.1 mg/dL (8.5-10.1); CHLORIDE 100 mmol/L (98-107); CO2 28 mmol/L (21-32); CREATININE 0.6 mg/dL (0.55-1.02); GLUCOSE,RANDOM 100 mg/dL (74-106); SGPT/ALT 9 U/L (12-78); SODIUM 135 mmol/L (136-145); TOT PROT 6.5 g/dl (6.4-8.2)
[2017-11-11 13:10] LABS: POTASSIUM 4.3 mmol/L (3.5-5.1); SGOT/AST 24 U/L (15-37)
[2017-11-11] MEDS ORDERED: morphine CARPU-JECT 2 MG/1 ML DISP.SYRIN IVPUSH ONE (14:05)
[2017-11-11] MEDS ORDERED: morphine SULFATE 4 MG/ML VIAL ONE (14:09)
[2017-11-11] MEDS ORDERED: ALBUTEROL SO4 2.5/IPRATROPIUM 0.5 INH SOL 3 ML VIAL.NEB. NEB PRN (16:13)
[2017-11-11] MEDS ORDERED: ONDANSETRON 4 MG TABLET PO PRN (16:13)
--- NOTE | 2017-11-11 16:19 | HP ---
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 Palmer Tracy. The patient came with increasing pain, swelling, redness, and warmth in the right leg and was sent to the ER for admission to the hospital. She was noted to have a fever while at the wound center. Patient reports that she is eating and drinking normally. History Source: Patient, Medical Record Limitations to Obtaining History: Clinical Condition - Past Medical History AUDIO VIDEO TECH: Yes: CVA Cardiovascular: Yes: CAD Musculoskeletal: Yes: Osteoarthritis (multiple sites, sever, on Dilaudid PO) Dermatology: Yes: Other - Smoking History Smoking history: Never smoked Have you smoked in the past 12 months: No - Alcohol/Substance Use Hx Alcohol Use: No History of Substance Use: reports: None - Social History Usual Living Arrangement: Yes: Long Term History of Recent Travel: No Home Medications - Allergies Allergies/Adverse Reactions: Allergies Allergy/AdvReac Type Severity Reaction Status Date / Time No Known Allergies Allergy Verified 11/11/17 11:07 - Home Medications Home Medications: Ambulatory Orders Gabapentin [Neurontin -] 400 mg PO BID 01/21/14 Sennosides [Senna -] 1 mg PO HS 01/21/14 Simethicone [Gas Relief] 2 tab PO QID 01/21/14 Acetaminophen [Tylenol] 650 mg PO TID 08/29/17 Amlodipine Besylate [Norvasc -] 2.5 mg PO DAILY 08/29/17 Ascorbate Calcium [Vitamin C] 500 mg PO DAILY 08/29/17 Calcium Polycarbophil [Fiber Laxative] 625 mg PO HS 08/29/17 Celecoxib [Celebrex] 100 mg PO BID 08/29/17 Cholecalciferol (Vitamin D3) [Vitamin D3] 1,000 unit PO DAILY 08/29/17 Cyanocobalamin (Vitamin B-12) [Vitamin B-12] 1,000 mcg PO DAILY 08/29/17 Docusate Liquid [Colace Liquid -] 300 mg PO HS 08/29/17 Multivitamins [Multivit (RH Formulary)] 1 tab PO DAILY 08/29/17 Ondansetron [Zofran -] 4 mg PO TID 08/29/17 Ranitidine HCl 150 mg PO DAILY 08/29/17 Vit B Comp/C/Folic/Iron/Vit E [Vitamin B Complex Tablet] 1 each PO DAILY Albuterol 2.5/Ipratropium 0.5 [Duoneb -] 1 amp NEB RQID PRN 10 Days amp HYDROmorphone [Dilaudid -] 2 mg PO Q3H PRN #30 tablet MDD 6 09/10/17 HYDROmorphone [Dilaudid -] 4 mg PO Q3H PRN #30 tablet MDD 6 09/10/17 Lactobacillus Rhamnosus GG [Culturelle] 2 each PO DAILY 60 Days capsule predniSONE [Deltasone -] See Taper PO DAILY 4 Days tablet 09/10/17 Mupirocin Ointment [Bactroban Ointment (For Decolonization) -] 1 applic TP BID 09/20/17 Family Disease History - Family Disease History Family History: Unremarkable Review of Systems - Review of Systems Constitutional: reports: Fever, Loss of Appetite. denies: Chills, Lethargy Eyes: denies: Blind Spots, Double Vision HENT: denies: Difficult Swallowing, Ear Pain Neck: denies: Pain on Movement, Stiffness, Tenderness Cardiovascular: denies: Chest Pain, Edema, Palpitations, Shortness of Breath Respiratory: denies: Cough, SOB Gastrointestinal: denies: Abdominal Pain, Bloating, Constipation, Diarrhea, Vomiting Genitourinary: denies: Dysuria, Flank Pain Musculoskeletal: reports: Joint Pain (R ankle > L ankle). denies: Back Pain Integumentary: reports: Rash, Wound (both legs around ankles; R chronic ankle dislocation/ deformity) Neurological: denies: Change in LOC, Change in Speech, Confusion, Dizziness, Seizure, Syncope Hematology/Lymphatic: denies: Easily Bruised, Excessive Bleeding Psychiatric: denies: Anxiety, Depression Physical Examination Vital Signs: Vital Signs Temperature 99.2 F 11/11/17 14:16 Pulse Rate 89 11/11/17 14:16 Respiratory Rate 16 11/11/17 14:16 Blood Pressure 115/71 11/11/17 14:16 O2 Sat by Pulse Oximetry (%) 97 11/11/17 14:16 Constitutional: Yes: No Distress, Calm Eyes: Yes: Conjunctiva Clear HENT: Yes: Atraumatic Neck: Yes: Supple Cardiovascular: Yes: Regular Rate and Rhythm Respiratory: Yes: CTA Bilaterally Gastrointestinal: Yes: Soft. No: Distention, Tenderness Renal/: No: CVA Tenderness - Left, CVA Tenderness - Right, Hematuria Musculoskeletal: No: Joint Stiffness, Joint Swelling Extremities: Yes: Deformity (R ankle chronic). No: Calf Tenderness, Cold, Cool Edema: No Integumentary: Yes: Pressure Ulcer, Rash, Venous Stasis Changes Wound/Incision: Yes: Open to air (both legs R>L around ankles), Reddened Neurological: Yes: WNL, Alert, Oriented, Other (pt is chronically bed bound and nonambulatory for long time) ...Motor Strength: WNL Psychiatric: Yes: WNL, Alert, Oriented. 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 given chronic wound, foot deformity and pt's nonambulatory condition for long time d/w ID d/w pt and staff
--- NOTE | 2017-11-11 16:33 | PN ---
Progress Note (short form) - Note Progress Note: ID consult dictated imp/reccd 87 yo NHR admitted with recurrent left ankle ulcer with erythema nonambulatory recently completed vancomycin for osteomyelitis at the [facility] history of MRSA needs podiatry evaluation esr/crp xrays vancomycin isolation d/w Dr Zaragoza Problem List - Problems (1) Cellulitis Code(s): L03.90 - CELLULITIS, UNSPECIFIED Qualifiers: Site of cellulitis: extremity Site of cellulitis of extremity: lower extremity Laterality: right Qualified Code(s): L03.115 - Cellulitis of right lower limb (2) Osteomyelitis Code(s): M86.9 - OSTEOMYELITIS, UNSPECIFIED Qualifiers: Osteomyelitis type: other Osteomyelitis location: other site Qualified Code(s): M86.8X8 - Other osteomyelitis, other site
[2017-11-11] MEDS ORDERED: VANCOMYCIN 1 GRAM (PRE-DOCKED) 1,000 MG/250 ML BAG IVPB SCH (16:45)
[2017-11-11] MEDS: VANCOMYCIN 1,000 MG in DEXTROSE 5%-WATER - 250 ML IVPB SCH (17:44)
[2017-11-11] MEDS: HYDROmorphone HCL 2 MG TABLET PO PRN ×2 (17:44→21:15)
[2017-11-11] MEDS ORDERED: PT OWN MED DRAWER 7, Y5N ONE (21:03)
[2017-11-11] MEDS ORDERED: MUPIROCIN 2% TOPICAL OINTMENT FOR DECOLONIZATION NS SCH (22:00)
[2017-11-11] MEDS: SENNOSIDES 8.6MG TABLET (FP) PO SCH (23:09)
[2017-11-11] MEDS: GABAPENTIN 400 MG CAPSULE (FP) PO SCH (23:09)
[2017-11-11] MEDS: ACETAMINOPHEN 325 MG TABLET (FP) PO PRN (23:10)
[2017-11-11] MEDS: HEPARIN NA (PORCINE) 5,000 UNITS/ML 1ML VIAL SQ SCH (23:10)
[2017-11-11] MEDS: DOCUSATE NA 100 MG/10 ML UNIT-DOSE CUPS PO SCH (23:10)
[2017-11-12] MEDS: HYDROmorphone HCL 2 MG TABLET PO PRN ×4 (05:35→20:20)
--- NOTE | 2017-11-12 07:27 | PN ---
Progress Note, Physician Chief Complaint: in bed awake alert NAD no new c/o feeling the same as yesterday no fever now - Current Medication List Current Medications: Active Medications Acetaminophen (Tylenol -) 650 mg PO TID PRN PRN Reason: PAIN Last Admin: 11/11/17 23:10 Dose: 650 mg Albuterol/Ipratropium (Duoneb -) 1 amp NEB Q6H PRN PRN Reason: Dyspnea Amlodipine Besylate (Norvasc -) 2.5 mg PO DAILY [facility] Cholecalciferol (Vitamin D3 -) 1,000 unit PO DAILY [facility] Cyanocobalamin (Vitamin B12 -) 1,000 mcg PO DAILY [facility] Docusate Sodium (Colace Liquid -) 300 mg PO HS [facility] Last Admin: 11/11/17 23:10 Dose: 300 mg Gabapentin (Neurontin -) 400 mg PO BID [facility] Last Admin: 11/11/17 23:09 Dose: 400 mg Heparin Sodium (Porcine) (Heparin -) 5,000 unit SQ BID [facility] Last Admin: 11/11/17 23:10 Dose: 5,000 unit Hydromorphone HCl (Dilaudid -) 2 mg PO Q3H PRN PRN Reason: PAIN LEVEL 6-10 Last Admin: 11/12/17 05:35 Dose: 2 mg Vancomycin HCl 1,000 mg/ (Dextrose) 250 mls @ 250 mls/hr IVPB DAILY@1700 [facility] Last Admin: 11/11/17 17:44 Dose: 250 mls/hr Multivitamins/Minerals/Vitamin C (Tab-A-Vit -) 1 tab PO DAILY [facility] Ondansetron HCl (Zofran -) 4 mg PO TID PRN PRN Reason: NAUSEA Ranitidine HCl (Zantac -) 150 mg PO DAILY [facility] Senna (Senna -) 1 tab PO [facility] Last Admin: 11/11/17 23:09 Dose: 1 tab - Objective Vital Signs: Vital Signs Temperature 98 F 11/12/17 06:15 Pulse Rate 90 11/12/17 06:15 Respiratory Rate 20 11/12/17 06:15 Blood Pressure 154/89 11/12/17 06:15 O2 Sat by Pulse Oximetry (%) 97 11/11/17 21:00 Constitutional: Yes: No Distress, Calm Eyes: Yes: Conjunctiva Clear HENT: Yes: Atraumatic Neck: Yes: Supple Cardiovascular: Yes: Regular Rate and Rhythm Respiratory: Yes: CTA Bilaterally Gastrointestinal: Yes: Soft. No: Distention Genitourinary: No: CVA Tenderness - Left, CVA Tenderness - Right Musculoskeletal: Yes: Other (R ankle wound dressed no bleed; L ankle dressed no bleed) Edema: No Integumentary: Yes: Pressure Ulcer, Venous Stasis Changes Neurological: Yes: WNL, Alert, Oriented ...Motor Strength: WNL Psychiatric: Yes: WNL, Alert, Oriented. 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 given chronic wound, foot deformity and pt's nonambulatory condition for long time d/w ID d/w pt and staff DNR DNI per pt's wishes
[2017-11-12 08:00] LABS: BASO % 0.4 % (0-2.0); EOS % 0.8 % (0-4.5); HEMATOCRIT 35.4 % (32.4-45.2); HEMOGLOBIN 11.9 GM/dL (10.7-15.3); LYMPH % 7.5 % (8-40); MCH 33.3 pg (25.7-33.7); MCHC 33.7 g/dl (32.0-36.0); MEAN PLT VOLUME 8.7 fl (7.5-11.1); MONO % 9.2 % (3.8-10.2); NEUT % 82.1 % (42.8-82.8); PLATELET COUNT 269 K/MM3 (134-434); RBC 3.58 M/mm3 (3.60-5.2); RDW 13.3 % (11.6-15.6); WHITE BLOOD COUNT 12.1 K/mm3 (4.0-10.0)
[2017-11-12 08:28] LABS: ALBUMIN 2.2 g/dl (3.4-5.0); ANION GAP 10 (8-16); BLOOD UREA NITROGEN 17 mg/dL (7-18); CALCIUM 8.6 mg/dL (8.5-10.1); CHLORIDE 99 mmol/L (98-107); CO2 29 mmol/L (21-32); CREATININE 0.5 mg/dL (0.55-1.02); GLUCOSE,RANDOM 99 mg/dL (74-106); POTASSIUM 3.9 mmol/L (3.5-5.1); SGOT/AST 13 U/L (15-37); SGPT/ALT < 6 U/L (12-78); SODIUM 138 mmol/L (136-145)
[2017-11-12 08:29] LABS: ALK PHOS 176 U/L (45-117); BILIRUBIN,TOTAL 0.4 mg/dL (0.2-1.0); TOT PROT 5.8 g/dl (6.4-8.2)
[2017-11-12] MEDS: RANITIDINE HCL 150 MG TABLET (FP) PO SCH (10:49)
[2017-11-12] MEDS: CHOLECALCIFEROL (VITAMIN D3) 1,000 UNIT TABLET (FP) PO SCH (10:49)
[2017-11-12] MEDS: GABAPENTIN 400 MG CAPSULE (FP) PO SCH ×2 (10:49→22:09)
[2017-11-12] MEDS: MULTIVITAMINS (DAILY MVI) TABLET (FP) PO SCH (10:49)
[2017-11-12] MEDS: HEPARIN NA (PORCINE) 5,000 UNITS/ML 1ML VIAL SQ SCH ×2 (10:49→22:09)
[2017-11-12] MEDS: CYANOCOBALAMIN 1,000 MCG TABLET (FP) PO SCH (10:50)
[2017-11-12] MEDS: amLODIPine BESYLATE 2.5 MG TABLET (FP) PO SCH (10:50)
--- NOTE | 2017-11-12 11:46 | PN ---
Progress Note, Physician History of Present Illness: Awake, alert No c/o foot pain Temp 103 noted WBC improved - Current Medication List Current Medications: Active Medications Acetaminophen (Tylenol -) 650 mg PO TID PRN PRN Reason: PAIN Last Admin: 11/11/17 23:10 Dose: 650 mg Albuterol/Ipratropium (Duoneb -) 1 amp NEB Q6H PRN PRN Reason: Dyspnea Amlodipine Besylate (Norvasc -) 2.5 mg PO DAILY [facility] Last Admin: 11/12/17 10:50 Dose: 2.5 mg Cholecalciferol (Vitamin D3 -) 1,000 unit PO DAILY [facility] Last Admin: 11/12/17 10:49 Dose: 1,000 unit Cyanocobalamin (Vitamin B12 -) 1,000 mcg PO DAILY [facility] Last Admin: 11/12/17 10:50 Dose: 1,000 mcg Docusate Sodium (Colace Liquid -) 300 mg PO HS [facility] Last Admin: 11/11/17 23:10 Dose: 300 mg Gabapentin (Neurontin -) 400 mg PO BID [facility] Last Admin: 11/12/17 10:49 Dose: 400 mg Heparin Sodium (Porcine) (Heparin -) 5,000 unit SQ BID [facility] Last Admin: 11/12/17 10:49 Dose: 5,000 unit Hydromorphone HCl (Dilaudid -) 2 mg PO Q3H PRN PRN Reason: PAIN LEVEL 6-10 Last Admin: 11/12/17 10:49 Dose: 2 mg Vancomycin HCl 1,000 mg/ (Dextrose) 250 mls @ 250 mls/hr IVPB DAILY@1700 [facility] Last Admin: 11/11/17 17:44 Dose: 250 mls/hr Multivitamins/Minerals/Vitamin C (Tab-A-Vit -) 1 tab PO DAILY [facility] Last Admin: 11/12/17 10:49 Dose: 1 tab Ondansetron HCl (Zofran -) 4 mg PO TID PRN PRN Reason: NAUSEA Ranitidine HCl (Zantac -) 150 mg PO DAILY [facility] Last Admin: 11/12/17 10:49 Dose: 150 mg Senna (Senna -) 1 tab PO [facility] Last Admin: 11/11/17 23:09 Dose: 1 tab - Objective Vital Signs: Vital Signs Temperature 98.5 F 11/12/17 11:36 Pulse Rate 79 03/31/18 11:36 Respiratory Rate 18 11/12/17 11:36 Blood Pressure 118/75 11/12/17 11:36 O2 Sat by Pulse Oximetry (%) 97 11/11/17 21:00 Constitutional: Yes: No Distress Eyes: Yes: Conjunctiva Clear Cardiovascular: Yes: Regular Rate and Rhythm, S1, S2 Respiratory: Yes: CTA Bilaterally Gastrointestinal: Yes: Normal Bowel Sounds, Soft. No: Tenderness Extremities: Yes: Other (+ erythema/ warmth R foot + dry ulcer) Labs: CBC, BMP 11/12/17 07:00 11/12/17 07:00 Assessment/Plan Cellulitis R foot Hx MRSA Await c/s Continue vancomycin
--- NOTE | 2017-11-12 14:35 | CONSULT ---
Consult - text type - Consultation Consultation Note: Podiatry Consult: 87 year old F well known to me from wound healing center presents for admission with RLE cellulitis. Patient is s/p R foot debridement of ulcer with bone biopsy for MRSA osteomyelitis. Treated with course of IV abx for treatment of osteomyelitis. Currently afebrile, however spiked a fever of 103 F while admitted. Patient was placed in posterior splint after surgery, which helped condition. PMHx: multiple pressure ulcers, osteoarthritis, osteomyelitis Meds: noted ALL: NKMA SUHAIL: R foot: dorsal rearfoot pressure ulcer stage 4 with exposed talar body, no purulent drainage, no fluctuance, no soft tissue crepitus. Unstageable pressure ulcer distal with exposed extensor tendon, no purulence, no fluctuance , no soft tissue crepitus. There is moderate erythema to the rearfoot and lower leg. There is significant tenderness to palpation. WBC: 12.1 ESR: 80 Blood Cx: no growth x 24 hrs R foot XR: severe contracture ankle joint, no evidence of osteomyelitis Imp: 87 year old F with R foot pressure ulcer stage 4, history of osteomyelitis 1. IV abx per ID for cellulitis 2. Local wound care 3. I have discussed with patient and other team members in the past. 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 Without addressing underlying structural issue she has a high rate of recurrence of pressure ulcer. She needs splinting and bracing as well to assist in dorsiflexing the ankle. Prognosis guarded considering current clinical appearance. 4. Thank you for the courtesy of this consultation. Paola Shafer DPM
[2017-11-12] MEDS: ACETAMINOPHEN 325 MG TABLET (FP) PO PRN (17:26)
[2017-11-12] MEDS: VANCOMYCIN 1,000 MG in DEXTROSE 5%-WATER - 250 ML IVPB SCH (17:28)
[2017-11-12] MEDS ORDERED: PT OWN MED DRAWER 7, Y5N ONE (20:46)
[2017-11-12] MEDS: SENNOSIDES 8.6MG TABLET (FP) PO SCH (22:09)
[2017-11-12] MEDS: DOCUSATE NA 100 MG/10 ML UNIT-DOSE CUPS PO SCH (22:09)
[2017-11-13] MEDS: HYDROmorphone HCL 2 MG TABLET PO PRN ×6 (02:01→21:52)
--- NOTE | 2017-11-13 07:21 | PN ---
Progress Note, Physician Chief Complaint: slighlty better less pain,a febrile consults reviewed and d/w pt - Current Medication List Current Medications: Active Medications Acetaminophen (Tylenol -) 650 mg PO TID PRN PRN Reason: PAIN Last Admin: 11/12/17 17:26 Dose: 650 mg Albuterol/Ipratropium (Duoneb -) 1 amp NEB Q6H PRN PRN Reason: Dyspnea Amlodipine Besylate (Norvasc -) 2.5 mg PO DAILY [facility] Last Admin: 11/12/17 10:50 Dose: 2.5 mg Cholecalciferol (Vitamin D3 -) 1,000 unit PO DAILY [facility] Last Admin: 11/12/17 10:49 Dose: 1,000 unit Cyanocobalamin (Vitamin B12 -) 1,000 mcg PO DAILY [facility] Last Admin: 11/12/17 10:50 Dose: 1,000 mcg Docusate Sodium (Colace Liquid -) 300 mg PO HS [facility] Last Admin: 11/12/17 22:09 Dose: 300 mg Gabapentin (Neurontin -) 400 mg PO BID [facility] Last Admin: 11/12/17 22:09 Dose: 400 mg Heparin Sodium (Porcine) (Heparin -) 5,000 unit SQ BID [facility] Last Admin: 11/12/17 22:09 Dose: 5,000 unit Hydromorphone HCl (Dilaudid -) 2 mg PO Q3H PRN PRN Reason: PAIN LEVEL 6-10 Last Admin: 11/13/17 06:03 Dose: 2 mg Vancomycin HCl 1,000 mg/ (Dextrose) 250 mls @ 250 mls/hr IVPB DAILY@1700 [facility] Last Admin: 11/12/17 17:28 Dose: 250 mls/hr Multivitamins/Minerals/Vitamin C (Tab-A-Vit -) 1 tab PO DAILY [facility] Last Admin: 11/12/17 10:49 Dose: 1 tab Ondansetron HCl (Zofran -) 4 mg PO TID PRN PRN Reason: NAUSEA Ranitidine HCl (Zantac -) 150 mg PO DAILY [facility] Last Admin: 11/12/17 10:49 Dose: 150 mg Senna (Senna -) 1 tab PO [facility] Last Admin: 11/12/17 22:09 Dose: 1 tab - Objective Vital Signs: Vital Signs Temperature 99 F 04/01/18 05:50 Pulse Rate 81 11/13/17 05:50 Respiratory Rate 18 11/13/17 05:50 Blood Pressure 118/70 11/13/17 05:50 O2 Sat by Pulse Oximetry (%) 98 11/12/17 21:00 Constitutional: Yes: No Distress, Calm Eyes: Yes: Conjunctiva Clear HENT: Yes: Atraumatic Neck: Yes: Supple Cardiovascular: Yes: Regular Rate and Rhythm Respiratory: Yes: CTA Bilaterally Gastrointestinal: Yes: Soft. No: Distention Genitourinary: No: CVA Tenderness - Left, CVA Tenderness - Right, Hematuria Musculoskeletal: Yes: Other (ankles wounds R>L dressed no bleed) Extremities: No: Cold, Cool Edema: No Integumentary: Yes: Pressure Ulcer, Rash, Venous Stasis Changes Neurological: Yes: WNL, Alert, Oriented ...Motor Strength: WNL Psychiatric: Yes: WNL, Alert, Oriented. 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
[2017-11-13 08:25] LABS: BASO % 0.5 % (0-2.0); HEMATOCRIT 34.9 % (32.4-45.2); HEMOGLOBIN 11.7 GM/dL (10.7-15.3); LYMPH % 9.9 % (8-40); MCHC 33.4 g/dl (32.0-36.0); MEAN CELL VOLUME 98.7 fl (80-96); MEAN PLT VOLUME 8.4 fl (7.5-11.1); MONO % 8.7 % (3.8-10.2); NEUT % 79.9 % (42.8-82.8); PLATELET COUNT 304 K/MM3 (134-434); RBC 3.54 M/mm3 (3.60-5.2); RDW 13.5 % (11.6-15.6); WHITE BLOOD COUNT 10.1 K/mm3 (4.0-10.0)
[2017-11-13 08:58] LABS: CHLORIDE 99 mmol/L (98-107); POTASSIUM 3.6 mmol/L (3.5-5.1); SODIUM 135 mmol/L (136-145)
[2017-11-13 09:11] LABS: ANION GAP 8 (8-16); BLOOD UREA NITROGEN 10 mg/dL (7-18); CALCIUM 8.5 mg/dL (8.5-10.1); CO2 28 mmol/L (21-32); CREATININE 0.3 mg/dL (0.55-1.02); GLUCOSE,RANDOM 101 mg/dL (74-106)
[2017-11-13] MEDS: amLODIPine BESYLATE 2.5 MG TABLET (FP) PO SCH (09:14)
[2017-11-13] MEDS: CHOLECALCIFEROL (VITAMIN D3) 1,000 UNIT TABLET (FP) PO SCH (09:14)
[2017-11-13] MEDS: MULTIVITAMINS (DAILY MVI) TABLET (FP) PO SCH (09:14)
[2017-11-13] MEDS: RANITIDINE HCL 150 MG TABLET (FP) PO SCH (09:14)
[2017-11-13] MEDS: GABAPENTIN 400 MG CAPSULE (FP) PO SCH ×2 (09:14→21:51)
[2017-11-13] MEDS: ACETAMINOPHEN 325 MG TABLET (FP) PO PRN (09:14)
[2017-11-13] MEDS: CYANOCOBALAMIN 1,000 MCG TABLET (FP) PO SCH (09:15)
--- NOTE | 2017-11-13 10:51 | PN ---
Progress Note, Physician History of Present Illness: Awake, alert Less foot pain Low grade temp WBC improved - Current Medication List Current Medications: Active Medications Acetaminophen (Tylenol -) 650 mg PO TID PRN PRN Reason: PAIN Last Admin: 11/13/17 09:14 Dose: 650 mg Albuterol/Ipratropium (Duoneb -) 1 amp NEB Q6H PRN PRN Reason: Dyspnea Amlodipine Besylate (Norvasc -) 2.5 mg PO DAILY [facility] Last Admin: 11/13/17 09:14 Dose: 2.5 mg Cholecalciferol (Vitamin D3 -) 1,000 unit PO DAILY [facility] Last Admin: 11/13/17 09:14 Dose: 1,000 unit Cyanocobalamin (Vitamin B12 -) 1,000 mcg PO DAILY [facility] Last Admin: 11/13/17 09:15 Dose: 1,000 mcg Docusate Sodium (Colace Liquid -) 300 mg PO HS [facility] Last Admin: 11/12/17 22:09 Dose: 300 mg Gabapentin (Neurontin -) 400 mg PO BID [facility] Last Admin: 11/13/17 09:14 Dose: 400 mg Heparin Sodium (Porcine) (Heparin -) 5,000 unit SQ BID [facility] Last Admin: 11/12/17 22:09 Dose: 5,000 unit Hydromorphone HCl (Dilaudid -) 2 mg PO Q3H PRN PRN Reason: PAIN LEVEL 6-10 Last Admin: 11/13/17 10:09 Dose: 2 mg Vancomycin HCl 1,000 mg/ (Dextrose) 250 mls @ 250 mls/hr IVPB DAILY@1700 [facility] Last Admin: 11/12/17 17:28 Dose: 250 mls/hr Multivitamins/Minerals/Vitamin C (Tab-A-Vit -) 1 tab PO DAILY [facility] Last Admin: 11/13/17 09:14 Dose: 1 tab Ondansetron HCl (Zofran -) 4 mg PO TID PRN PRN Reason: NAUSEA Ranitidine HCl (Zantac -) 150 mg PO DAILY [facility] Last Admin: 11/13/17 09:14 Dose: 150 mg Senna (Senna -) 1 tab PO HS [facility] Last Admin: 11/12/17 22:09 Dose: 1 tab - Objective Vital Signs: Vital Signs Temperature 99 F 11/13/17 05:50 Pulse Rate 81 11/13/17 05:50 Respiratory Rate 18 11/13/17 05:50 Blood Pressure 118/70 11/13/17 05:50 O2 Sat by Pulse Oximetry (%) 98 11/12/17 21:00 Constitutional: Yes: No Distress, Thin Eyes: Yes: Conjunctiva Clear Cardiovascular: Yes: Regular Rate and Rhythm, S1, S2 Respiratory: Yes: CTA Bilaterally Gastrointestinal: Yes: Normal Bowel Sounds, Soft. No: Tenderness Extremities: Yes: Other (decreased R foot erythema/warmth) Labs: CBC, BMP 11/13/17 06:45 11/13/17 06:45 Assessment/Plan Cellulitis R foot Hx MRSA Await c/s Continue vancomycin Check vancomycin level
[2017-11-13] MEDS: HEPARIN NA (PORCINE) 5,000 UNITS/ML 1ML VIAL SQ SCH ×2 (14:56→21:52)
[2017-11-13] MEDS: VANCOMYCIN 1,000 MG in DEXTROSE 5%-WATER - 250 ML IVPB SCH (20:22)
[2017-11-13] MEDS ORDERED: PT OWN MED DRAWER 7, Y5N ONE (21:48)
[2017-11-13] MEDS: DOCUSATE NA 100 MG/10 ML UNIT-DOSE CUPS PO SCH (21:51)
[2017-11-13] MEDS: SENNOSIDES 8.6MG TABLET (FP) PO SCH (21:51)
[2017-11-14] MEDS: HYDROmorphone HCL 2 MG TABLET PO PRN ×3 (01:25→09:13)
[2017-11-14 08:21] LABS: BASO % 0.5 % (0-2.0); EOS % 1.5 % (0-4.5); HEMATOCRIT 36.3 % (32.4-45.2); HEMOGLOBIN 12.1 GM/dL (10.7-15.3); LYMPH % 13.2 % (8-40); MCHC 33.4 g/dl (32.0-36.0); MEAN PLT VOLUME 8.3 fl (7.5-11.1); NEUT % 74.8 % (42.8-82.8); PLATELET COUNT 322 K/MM3 (134-434); RBC 3.67 M/mm3 (3.60-5.2); RDW 13.4 % (11.6-15.6)
[2017-11-14 08:41] LABS: CHLORIDE 98 mmol/L (98-107); POTASSIUM 4.2 mmol/L (3.5-5.1); SODIUM 135 mmol/L (136-145)
[2017-11-14] MEDS ORDERED: PT OWN MED DRAWER 7, Y5N ONE ×2 (09:10→18:18)
--- NOTE | 2017-11-14 09:10 | PN ---
Progress Note, Physician History of Present Illness: Pt with right ankle pain better since pain medication dose was increwsed. Pt is asking to change medication to standing every 3 hours, as was given in [facility]. Pt w/ o SOB, Dizziness, confusion. Pt w/o CP, palpitations, abd pain, constipation. - Current Medication List Current Medications: Active Medications Acetaminophen (Tylenol -) 650 mg PO TID PRN PRN Reason: PAIN Last Admin: 11/13/17 09:14 Dose: 650 mg Albuterol/Ipratropium (Duoneb -) 1 amp NEB Q6H PRN PRN Reason: Dyspnea Amlodipine Besylate (Norvasc -) 2.5 mg PO DAILY [facility] Last Admin: 11/13/17 09:14 Dose: 2.5 mg Cholecalciferol (Vitamin D3 -) 1,000 unit PO DAILY [facility] Last Admin: 11/13/17 09:14 Dose: 1,000 unit Cyanocobalamin (Vitamin B12 -) 1,000 mcg PO DAILY [facility] Last Admin: 11/13/17 09:15 Dose: 1,000 mcg Docusate Sodium (Colace Liquid -) 300 mg PO HS [facility] Last Admin: 11/13/17 21:51 Dose: Not Given Gabapentin (Neurontin -) 400 mg PO BID [facility] Last Admin: 11/13/17 21:51 Dose: 400 mg Heparin Sodium (Porcine) (Heparin -) 5,000 unit SQ BID [facility] Last Admin: 11/13/17 21:52 Dose: 5,000 unit Hydromorphone HCl (Dilaudid -) 6 mg PO Q3H PRN PRN Reason: PAIN LEVEL 6-10 Last Admin: 11/14/17 06:13 Dose: 6 mg Vancomycin HCl 1,000 mg/ (Dextrose) 250 mls @ 250 mls/hr IVPB DAILY@1700 [facility] Last Admin: 11/13/17 20:22 Dose: 250 mls/hr Multivitamins/Minerals/Vitamin C (Tab-A-Vit -) 1 tab PO DAILY [facility] Last Admin: 11/13/17 09:14 Dose: 1 tab Ondansetron HCl (Zofran -) 4 mg PO TID PRN PRN Reason: NAUSEA Ranitidine HCl (Zantac -) 150 mg PO DAILY [facility] Last Admin: 11/13/17 09:14 Dose: 150 mg Senna (Senna -) 1 tab PO HS [facility] Last Admin: 11/13/17 21:51 Dose: Not Given - Objective Vital Signs: Vital Signs Temperature 99.3 F 11/14/17 06:09 Pulse Rate 83 11/14/17 06:09 Respiratory Rate 22 11/14/17 06:09 Blood Pressure 125/76 11/14/17 06:09 O2 Sat by Pulse Oximetry (%) 95 11/13/17 21:00 Constitutional: Yes: No Distress, Calm Cardiovascular: Yes: Regular Rate and Rhythm, S1, S2 Respiratory: Yes: Regular, CTA Bilaterally Gastrointestinal: Yes: Normal Bowel Sounds, Soft. No: Tenderness Extremities: Yes: Other (right leg with cleaen dressing) Edema: No Neurological: Yes: Alert, Oriented Labs: CBC, BMP 11/14/17 06:30 11/14/17 06:30 Problem List - Problems (1) Cellulitis Code(s): L03.90 - CELLULITIS, UNSPECIFIED Qualifiers: Site of cellulitis: extremity Site of cellulitis of extremity: lower extremity Laterality: right Qualified Code(s): L03.115 - Cellulitis of right lower limb (2) Bilateral leg ulcer Code(s): L97.919 - NON-PRS CHRONIC ULC UNSP PRT OF R LOW LEG W UNSP SEVERITY; L97.929 - NON-PRS CHRONIC ULC UNSP PRT OF L LOW LEG W UNSP SEVERITY (3) Ulcer of right ankle Code(s): L97.319 - NON-PRESSURE CHRONIC ULCER OF RIGHT ANKLE WITH UNSP SEVERITY (4) Osteomyelitis Assessment/Plan: treated recently with 6 weeks of Vanco Code(s): M86.9 - OSTEOMYELITIS, UNSPECIFIED Qualifiers: Osteomyelitis type: other Osteomyelitis location: other site Qualified Code(s): M86.8X8 - Other osteomyelitis, other site (5) Ankle dislocation Code(s): S93.06XA - DISLOCATION OF UNSPECIFIED ANKLE JOINT, INITIAL ENCOUNTER Assessment/Plan Cont IV Vanco ID consult and f/u appreciated. Podiatry consult appreciated. Ortho Consult. AM labs Case was d/w pt's nurse (Jolanta).
[2017-11-14 09:11] LABS: ANION GAP 10 (8-16); BLOOD UREA NITROGEN 10 mg/dL (7-18); CALCIUM 8.4 mg/dL (8.5-10.1); CO2 27 mmol/L (21-32); CREATININE 0.3 mg/dL (0.55-1.02); GLUCOSE,RANDOM 87 mg/dL (74-106)
[2017-11-14] MEDS: RANITIDINE HCL 150 MG TABLET (FP) PO SCH (09:13)
[2017-11-14] MEDS: amLODIPine BESYLATE 2.5 MG TABLET (FP) PO SCH (09:13)
[2017-11-14] MEDS: CYANOCOBALAMIN 1,000 MCG TABLET (FP) PO SCH (09:13)
[2017-11-14] MEDS: MULTIVITAMINS (DAILY MVI) TABLET (FP) PO SCH (09:13)
[2017-11-14] MEDS: GABAPENTIN 400 MG CAPSULE (FP) PO SCH ×2 (09:13→21:33)
[2017-11-14] MEDS: CHOLECALCIFEROL (VITAMIN D3) 1,000 UNIT TABLET (FP) PO SCH (09:13)
[2017-11-14] MEDS: HEPARIN NA (PORCINE) 5,000 UNITS/ML 1ML VIAL SQ SCH ×2 (09:14→21:34)
--- NOTE | 2017-11-14 11:20 | PN ---
Progress Note, Physician History of Present Illness: Awake, alert C/O bilateral LE pain with movement No c/o fever/ chills Afebrile WBC WNL BC (-) Vancomycin trough 12.1 - Current Medication List Current Medications: Active Medications Acetaminophen (Tylenol -) 650 mg PO TID PRN PRN Reason: PAIN Last Admin: 11/13/17 09:14 Dose: 650 mg Albuterol/Ipratropium (Duoneb -) 1 amp NEB Q6H PRN PRN Reason: Dyspnea Amlodipine Besylate (Norvasc -) 2.5 mg PO DAILY [facility] Last Admin: 11/14/17 09:13 Dose: 2.5 mg Cholecalciferol (Vitamin D3 -) 1,000 unit PO DAILY [facility] Last Admin: 11/14/17 09:13 Dose: 1,000 unit Cyanocobalamin (Vitamin B12 -) 1,000 mcg PO DAILY [facility] Last Admin: 11/14/17 09:13 Dose: 1,000 mcg Docusate Sodium (Colace Liquid -) 300 mg PO HS [facility] Last Admin: 11/13/17 21:51 Dose: Not Given Gabapentin (Neurontin -) 400 mg PO BID [facility] Last Admin: 11/14/17 09:13 Dose: 400 mg Heparin Sodium (Porcine) (Heparin -) 5,000 unit SQ BID [facility] Last Admin: 11/14/17 09:14 Dose: 5,000 unit Hydromorphone HCl (Dilaudid -) 6 mg PO Q3H [facility] Vancomycin HCl 1,000 mg/ (Dextrose) 250 mls @ 250 mls/hr IVPB DAILY@1700 [facility] Last Admin: 11/13/17 20:22 Dose: 250 mls/hr Multivitamins/Minerals/Vitamin C (Tab-A-Vit -) 1 tab PO DAILY [facility] Last Admin: 11/14/17 09:13 Dose: 1 tab Ondansetron HCl (Zofran -) 4 mg PO TID PRN PRN Reason: NAUSEA Ranitidine HCl (Zantac -) 150 mg PO DAILY [facility] Last Admin: 11/14/17 09:13 Dose: 150 mg Senna (Senna -) 1 tab PO HS [facility] Last Admin: 11/13/17 21:51 Dose: Not Given - Objective Vital Signs: Vital Signs Temperature 99.3 F 11/14/17 06:09 Pulse Rate 97 H 11/14/17 09:00 Respiratory Rate 22 11/14/17 09:00 Blood Pressure 133/71 11/14/17 09:00 O2 Sat by Pulse Oximetry (%) 95 11/14/17 09:00 Constitutional: Yes: No Distress, Thin Cardiovascular: Yes: Regular Rate and Rhythm, S1, S2 Respiratory: Yes: CTA Bilaterally Gastrointestinal: Yes: Normal Bowel Sounds, Soft. No: Tenderness Extremities: Yes: Other (decreased erythema distal R LE/ foot + dry ulcer dorsum R foot + dry ulcer with erythema distal L LE) Labs: CBC, BMP 11/14/17 06:30 11/14/17 06:30 Assessment/Plan Cellulitis R foot/ non-healing ulcer L leg ulcer/ cellulitis Hx MRSA Continue vancomycin Local wound care
--- NOTE | 2017-11-14 11:40 | EKG ---
Test Reason : Blood Pressure : / mmHG Vent. Rate : 081 BPM Atrial Rate : 081 BPM P-R Int : 138 ms QRS Dur : 086 ms QT Int : 364 ms P-R-T Axes : 029 -31 029 degrees QTc Int : 422 ms NORMAL SINUS RHYTHM LEFT AXIS DEVIATION MINIMAL VOLTAGE CRITERIA FOR LVH, MAY BE NORMAL VARIANT ANTERIOR INFARCT (CITED ON OR BEFORE 29-AUG-2017) ABNORMAL ECG WHEN COMPARED WITH ECG OF 29-AUG-2017 16:33, NO SIGNIFICANT CHANGE WAS FOUND Confirmed by ELIJAH POLK MD ([id number]) on 11/14/2017 11:39:52 AM Referred By: Confirmed By:ELIJAH POLK MD
[2017-11-14] MEDS: HYDROmorphone HCL 2 MG TABLET PO SCH ×4 (11:55→21:33)
[2017-11-14] MEDS: VANCOMYCIN 1,000 MG in DEXTROSE 5%-WATER - 250 ML IVPB SCH (18:20)
[2017-11-14] MEDS: ACETAMINOPHEN 325 MG TABLET (FP) PO PRN (21:32)
[2017-11-14] MEDS: SENNOSIDES 8.6MG TABLET (FP) PO SCH (21:34)
[2017-11-14] MEDS: DOCUSATE NA 100 MG/10 ML UNIT-DOSE CUPS PO SCH (21:34)
[2017-11-15] MEDS: HYDROmorphone HCL 2 MG TABLET PO SCH ×8 (01:32→21:40)
[2017-11-15 07:56] LABS: HEMATOCRIT 36.3 % (32.4-45.2); HEMOGLOBIN 12.1 GM/dL (10.7-15.3); MCH 33.1 pg (25.7-33.7); MCHC 33.3 g/dl (32.0-36.0); MEAN CELL VOLUME 99.5 fl (80-96); MEAN PLT VOLUME 8.1 fl (7.5-11.1); PLATELET COUNT 296 K/MM3 (134-434); RBC 3.65 M/mm3 (3.60-5.2); RDW 13.5 % (11.6-15.6); WHITE BLOOD COUNT 8.1 K/mm3 (4.0-10.0)
[2017-11-15 08:03] LABS: ALBUMIN 2.3 g/dl (3.4-5.0); ANION GAP 7 (8-16); BLOOD UREA NITROGEN 11 mg/dL (7-18); CALCIUM 8.6 mg/dL (8.5-10.1); CHLORIDE 96 mmol/L (98-107); CO2 32 mmol/L (21-32); GLUCOSE,RANDOM 96 mg/dL (74-106); SODIUM 135 mmol/L (136-145)
[2017-11-15 08:07] LABS: ALK PHOS 153 U/L (45-117); BILIRUBIN,TOTAL 0.2 mg/dL (0.2-1.0); CREATININE 0.4 mg/dL (0.55-1.02); SGOT/AST 13 U/L (15-37); SGPT/ALT 10 U/L (12-78); TOT PROT 5.8 g/dl (6.4-8.2)
--- NOTE | 2017-11-15 09:30 | PN ---
Progress Note, Physician History of Present Illness: Pt with right ankle pain better since pain medication was changed to Q3H; pt is asking not to change it. Pt w/o CP, palpitations, abd pain, constipation. - Current Medication List Current Medications: Active Medications Acetaminophen (Tylenol -) 650 mg PO TID PRN PRN Reason: PAIN Last Admin: 11/14/17 21:32 Dose: 650 mg Albuterol/Ipratropium (Duoneb -) 1 amp NEB Q6H PRN PRN Reason: Dyspnea Amlodipine Besylate (Norvasc -) 2.5 mg PO DAILY [facility] Last Admin: 11/14/17 09:13 Dose: 2.5 mg Cholecalciferol (Vitamin D3 -) 1,000 unit PO DAILY [facility] Last Admin: 11/14/17 09:13 Dose: 1,000 unit Cyanocobalamin (Vitamin B12 -) 1,000 mcg PO DAILY [facility] Last Admin: 11/14/17 09:13 Dose: 1,000 mcg Docusate Sodium (Colace Liquid -) 300 mg PO HS [facility] Last Admin: 11/14/17 21:34 Dose: Not Given Gabapentin (Neurontin -) 400 mg PO BID [facility] Last Admin: 11/14/17 21:33 Dose: 400 mg Heparin Sodium (Porcine) (Heparin -) 5,000 unit SQ BID [facility] Last Admin: 11/14/17 21:34 Dose: 5,000 unit Hydromorphone HCl (Dilaudid -) 6 mg PO Q3H [facility] Last Admin: 11/15/17 07:11 Dose: Not Given Vancomycin HCl 1,000 mg/ (Dextrose) 250 mls @ 250 mls/hr IVPB DAILY@1700 [facility] Last Admin: 11/14/17 18:20 Dose: 250 mls/hr Multivitamins/Minerals/Vitamin C (Tab-A-Vit -) 1 tab PO DAILY [facility] Last Admin: 11/14/17 09:13 Dose: 1 tab Ondansetron HCl (Zofran -) 4 mg PO TID PRN PRN Reason: NAUSEA Ranitidine HCl (Zantac -) 150 mg PO DAILY [facility] Last Admin: 11/14/17 09:13 Dose: 150 mg Senna (Senna -) 1 tab PO HS [facility] Last Admin: 11/14/17 21:34 Dose: Not Given - Objective Vital Signs: Vital Signs Temperature 98.2 F 04/03/18 06:14 Pulse Rate 80 11/15/17 06:14 Respiratory Rate 16 11/15/17 06:14 Blood Pressure 143/54 11/15/17 06:14 O2 Sat by Pulse Oximetry (%) 94 L 11/14/17 21:00 Constitutional: Yes: No Distress, Calm Cardiovascular: Yes: Regular Rate and Rhythm, S1, S2 Respiratory: Yes: Regular, CTA Bilaterally. No: Rales Gastrointestinal: Yes: Normal Bowel Sounds, Soft. No: Tenderness Extremities: Yes: Other (right ankle/ heel clean dressing) Edema: No Neurological: Yes: Alert, Oriented Labs: CBC, BMP 11/15/17 06:00 11/15/17 06:00 Problem List - Problems (1) Cellulitis Code(s): L03.90 - CELLULITIS, UNSPECIFIED Qualifiers: Site of cellulitis: extremity Site of cellulitis of extremity: lower extremity Laterality: right Qualified Code(s): L03.115 - Cellulitis of right lower limb (2) Bilateral leg ulcer Code(s): L97.919 - NON-PRS CHRONIC ULC UNSP PRT OF R LOW LEG W UNSP SEVERITY; L97.929 - NON-PRS CHRONIC ULC UNSP PRT OF L LOW LEG W UNSP SEVERITY (3) Ulcer of right ankle Code(s): L97.319 - NON-PRESSURE CHRONIC ULCER OF RIGHT ANKLE WITH UNSP SEVERITY (4) Osteomyelitis Code(s): M86.9 - OSTEOMYELITIS, UNSPECIFIED Qualifiers: Osteomyelitis type: other Osteomyelitis location: other site Qualified Code(s): M86.8X8 - Other osteomyelitis, other site (5) Ankle dislocation Code(s): S93.06XA - DISLOCATION OF UNSPECIFIED ANKLE JOINT, INITIAL ENCOUNTER (6) Ulcer of right heel Code(s): L97.419 - NON-PRS CHR ULCER OF RIGHT HEEL AND MIDFOOT W UNSP SEVERT Assessment/Plan Cont IV Vanco- to f/u with ID ID consult and f/u appreciated. Podiatry consult appreciated. Ortho Consult. Case was d/w pt's nurse (Jolanta). To monitor pt for sedation. AM labs
[2017-11-15] MEDS: CHOLECALCIFEROL (VITAMIN D3) 1,000 UNIT TABLET (FP) PO SCH (10:09)
[2017-11-15] MEDS: CYANOCOBALAMIN 1,000 MCG TABLET (FP) PO SCH (10:09)
[2017-11-15] MEDS: RANITIDINE HCL 150 MG TABLET (FP) PO SCH (10:09)
[2017-11-15] MEDS: HEPARIN NA (PORCINE) 5,000 UNITS/ML 1ML VIAL SQ SCH ×2 (10:09→21:40)
[2017-11-15] MEDS: GABAPENTIN 400 MG CAPSULE (FP) PO SCH ×2 (10:09→21:39)
[2017-11-15] MEDS: MULTIVITAMINS (DAILY MVI) TABLET (FP) PO SCH (10:09)
[2017-11-15] MEDS: ACETAMINOPHEN 325 MG TABLET (FP) PO PRN ×2 (10:17→21:40)
[2017-11-15] MEDS: amLODIPine BESYLATE 2.5 MG TABLET (FP) PO SCH (10:31)
--- NOTE | 2017-11-15 12:38 | PN ---
Progress Note, Physician History of Present Illness: Awake, alert. Temp spike noted C/O bilateral LE pain with movement No c/o chills. No dyspnea/ cough/sputum No dysura No diarrhea WBC WNL - Current Medication List Current Medications: Active Medications Acetaminophen (Tylenol -) 650 mg PO TID PRN PRN Reason: PAIN Last Admin: 11/15/17 10:17 Dose: 650 mg Albuterol/Ipratropium (Duoneb -) 1 amp NEB Q6H PRN PRN Reason: Dyspnea Amlodipine Besylate (Norvasc -) 2.5 mg PO DAILY [facility] Last Admin: 11/15/17 10:31 Dose: Not Given Cholecalciferol (Vitamin D3 -) 1,000 unit PO DAILY [facility] Last Admin: 11/15/17 10:09 Dose: 1,000 unit Cyanocobalamin (Vitamin B12 -) 1,000 mcg PO DAILY [facility] Last Admin: 11/15/17 10:09 Dose: 1,000 mcg Docusate Sodium (Colace Liquid -) 300 mg PO HS [facility] Last Admin: 11/14/17 21:34 Dose: Not Given Gabapentin (Neurontin -) 400 mg PO BID [facility] Last Admin: 11/15/17 10:09 Dose: 400 mg Heparin Sodium (Porcine) (Heparin -) 5,000 unit SQ BID [facility] Last Admin: 11/15/17 10:09 Dose: 5,000 unit Hydromorphone HCl (Dilaudid -) 6 mg PO Q3H [facility] Last Admin: 11/15/17 12:01 Dose: 6 mg Vancomycin HCl 1,000 mg/ (Dextrose) 250 mls @ 250 mls/hr IVPB DAILY@1700 [facility] Last Admin: 11/14/17 18:20 Dose: 250 mls/hr Multivitamins/Minerals/Vitamin C (Tab-A-Vit -) 1 tab PO DAILY [facility] Last Admin: 11/15/17 10:09 Dose: 1 tab Ondansetron HCl (Zofran -) 4 mg PO TID PRN PRN Reason: NAUSEA Ranitidine HCl (Zantac -) 150 mg PO DAILY [facility] Last Admin: 11/15/17 10:09 Dose: 150 mg Senna (Senna -) 1 tab PO HS [facility] Last Admin: 11/14/17 21:34 Dose: Not Given - Objective Vital Signs: Vital Signs Temperature 98.2 F 11/15/17 06:14 Pulse Rate 80 11/15/17 06:14 Respiratory Rate 16 11/15/17 06:14 Blood Pressure 143/54 11/15/17 06:14 O2 Sat by Pulse Oximetry (%) 94 L 11/14/17 21:00 Constitutional: Yes: No Distress, Thin Cardiovascular: Yes: Regular Rate and Rhythm, S1, S2 Respiratory: Yes: Diminished Gastrointestinal: Yes: Normal Bowel Sounds, Soft. No: Tenderness Extremities: Yes: Other (decreased erythema distal R LE. R foot remains red) Labs: CBC, BMP 11/15/17 06:00 11/15/17 06:00 Assessment/Plan Fever ? souce Cellulitis R foot/ non-healing ulcer L leg ulcer/ cellulitis Hx MRSA Repeat BC Continue vancomycin Local wound care
--- NOTE | 2017-11-15 13:09 | PN ---
Progress Note (short form) - Note Progress Note: Podiatry: Seen/evaluated at bedside, NAD. Denies F/V/N/C/SOB/CP. Persistent severe tenderness to R ankle and posterior heel. 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 Treated with IV abx for osteomyelitis in the past. Afebrile, VSS. SUHAIL: R foot: dorsal rearfoot pressure ulcer stage 4 with exposed talar body, small rim of granulation tissue, serous drainage present, no purulent drainage, no fluctuance, mild periwound erythema, no ascending cellulitis, no signs of active infection. Severe pain to palpation and range of motion. Posterior heel pressure ulcer with eschar, no purulent drainage, no fluctuance, no soft tissue crepitus, no signs of active infection. WBC: 8.1 Imp: 87 year old F with R rearfoot pressure ulcer stage 4 1. IV abx per ID 2. Continue palliative local wound care 3. Recommend Orthopedics consultation. The main issue is the subluxation of the ankle joint, which has now caused instability and exposed talar body. If the ankle is stabilized, i.e. with external fixator, she may have chance at resolution of ulcer. However, she is a poor candidate for such a surgical procedure. Prognosis is guarded for limb salvage, no surgical intervention from my standpoint. Discussed case with ID and Vascular Sx. Paola Shafer DPM
[2017-11-15] MEDS ORDERED: PT OWN MED DRAWER 7, Y5N ONE ×3 (16:37→21:50)
[2017-11-15] MEDS: VANCOMYCIN 1,000 MG in DEXTROSE 5%-WATER - 250 ML IVPB SCH (16:42)
--- NOTE | 2017-11-15 16:47 | PN ---
Progress Note (short form) - Note Progress Note: Pt is an 87 year old female with a long h/o problems in both feet and ankles. She has not ambulated in atleast 9 months. She has non healing ulcers on both LE. She had severe B/L ankle and foot pain, which has improved somewhat over the past few days. She has a h/o osteomyelitis, which is being treated with 6 weeks of IV Vanco. PE B/L LE have significant contractures of the feet and ankles. Multiple non healing ulcers, dressings are basically CDI at the moment. ` No other acute orthopedic injuries. Xrays Show a Left TKR prosthesis which looks fine, no problems. Left tib-fib are nl Imp 87 yo F non ambulator with b/l foot and ankle contractures, non healing ulcers. Osteo being treated. Rec No orthopedic intervention possible. Gen surg consultation, she may require amputation or debridement.
[2017-11-15] MEDS: SENNOSIDES 8.6MG TABLET (FP) PO SCH (21:39)
[2017-11-15] MEDS: DOCUSATE NA 100 MG/10 ML UNIT-DOSE CUPS PO SCH (21:39)
[2017-11-16] MEDS: HYDROmorphone HCL 2 MG TABLET PO SCH ×8 (01:34→21:23)
[2017-11-16 07:50] LABS: HEMOGLOBIN 11.7 GM/dL (10.7-15.3); MCH 33.3 pg (25.7-33.7); MCHC 33.6 g/dl (32.0-36.0); MEAN CELL VOLUME 99.2 fl (80-96); MEAN PLT VOLUME 8.2 fl (7.5-11.1); PLATELET COUNT 302 K/MM3 (134-434); RBC 3.52 M/mm3 (3.60-5.2); RDW 13.3 % (11.6-15.6); WHITE BLOOD COUNT 8.6 K/mm3 (4.0-10.0)
[2017-11-16 08:29] LABS: ALBUMIN 2.3 g/dl (3.4-5.0); ANION GAP 8 (8-16); BILIRUBIN,TOTAL 0.3 mg/dL (0.2-1.0); BLOOD UREA NITROGEN 12 mg/dL (7-18); CALCIUM 9.2 mg/dL (8.5-10.1); CHLORIDE 96 mmol/L (98-107); CO2 34 mmol/L (21-32); CREATININE 0.5 mg/dL (0.55-1.02); GLUCOSE,RANDOM 98 mg/dL (74-106); POTASSIUM 4.1 mmol/L (3.5-5.1); SGOT/AST 13 U/L (15-37); SGPT/ALT 9 U/L (12-78); SODIUM 138 mmol/L (136-145)
[2017-11-16 08:30] LABS: ALK PHOS 146 U/L (45-117); TOT PROT 5.8 g/dl (6.4-8.2)
[2017-11-16] MEDS: GABAPENTIN 400 MG CAPSULE (FP) PO SCH ×2 (10:29→21:23)
[2017-11-16] MEDS: CYANOCOBALAMIN 1,000 MCG TABLET (FP) PO SCH (10:30)
[2017-11-16] MEDS: HEPARIN NA (PORCINE) 5,000 UNITS/ML 1ML VIAL SQ SCH ×2 (10:30→21:24)
[2017-11-16] MEDS: CHOLECALCIFEROL (VITAMIN D3) 1,000 UNIT TABLET (FP) PO SCH (10:30)
[2017-11-16] MEDS: RANITIDINE HCL 150 MG TABLET (FP) PO SCH (10:30)
[2017-11-16] MEDS: MULTIVITAMINS (DAILY MVI) TABLET (FP) PO SCH (10:30)
[2017-11-16] MEDS: amLODIPine BESYLATE 2.5 MG TABLET (FP) PO SCH (10:31)
--- NOTE | 2017-11-16 11:05 | PN ---
Progress Note, Physician History of Present Illness: Pt's right ankle pain is controlled by medication. Pt w/o CP, palpitations, abd pain. No BM yesterday. - Current Medication List Current Medications: Active Medications Acetaminophen (Tylenol -) 650 mg PO TID PRN PRN Reason: PAIN Last Admin: 11/15/17 21:40 Dose: 650 mg Albuterol/Ipratropium (Duoneb -) 1 amp NEB Q6H PRN PRN Reason: Dyspnea Amlodipine Besylate (Norvasc -) 2.5 mg PO DAILY [facility] Last Admin: 11/16/17 10:31 Dose: Not Given Cholecalciferol (Vitamin D3 -) 1,000 unit PO DAILY [facility] Last Admin: 11/16/17 10:30 Dose: 1,000 unit Cyanocobalamin (Vitamin B12 -) 1,000 mcg PO DAILY [facility] Last Admin: 11/16/17 10:30 Dose: 1,000 mcg Docusate Sodium (Colace Liquid -) 300 mg PO HS [facility] Last Admin: 11/15/17 21:39 Dose: 300 mg Gabapentin (Neurontin -) 400 mg PO BID [facility] Last Admin: 11/16/17 10:29 Dose: 400 mg Heparin Sodium (Porcine) (Heparin -) 5,000 unit SQ BID [facility] Last Admin: 11/16/17 10:30 Dose: 5,000 unit Hydromorphone HCl (Dilaudid -) 6 mg PO Q3H [facility] Last Admin: 11/16/17 08:42 Dose: 6 mg Vancomycin HCl 1,000 mg/ (Dextrose) 250 mls @ 250 mls/hr IVPB DAILY@1700 [facility] Last Admin: 11/15/17 16:42 Dose: 250 mls/hr Multivitamins/Minerals/Vitamin C (Tab-A-Vit -) 1 tab PO DAILY [facility] Last Admin: 11/16/17 10:30 Dose: 1 tab Ondansetron HCl (Zofran -) 4 mg PO TID PRN PRN Reason: NAUSEA Ranitidine HCl (Zantac -) 150 mg PO DAILY [facility] Last Admin: 11/16/17 10:30 Dose: 150 mg Senna (Senna -) 1 tab PO HS [facility] Last Admin: 11/15/17 21:39 Dose: 1 tab - Objective Vital Signs: Vital Signs Temperature 99.3 F 11/16/17 09:00 Pulse Rate 89 11/16/17 09:00 Respiratory Rate 17 11/16/17 09:00 Blood Pressure 99/62 11/16/17 09:00 O2 Sat by Pulse Oximetry (%) 95 11/15/17 20:06 Constitutional: Yes: No Distress, Calm Cardiovascular: Yes: Regular Rate and Rhythm, S1, S2 Respiratory: Yes: Regular, CTA Bilaterally Gastrointestinal: Yes: Normal Bowel Sounds, Soft. No: Tenderness Extremities: Yes: Other (Right foot pretibial ulcer; right ankle ulcer; right heel escar. Left pretibial ulcers) Edema: Yes (right foot) Neurological: Yes: Alert, Oriented Labs: CBC, BMP 11/16/17 06:00 11/16/17 06:00 Problem List - Problems (1) Cellulitis Code(s): L03.90 - CELLULITIS, UNSPECIFIED Qualifiers: Site of cellulitis: extremity Site of cellulitis of extremity: lower extremity Laterality: right Qualified Code(s): L03.115 - Cellulitis of right lower limb (2) Bilateral leg ulcer Code(s): L97.919 - NON-PRS CHRONIC ULC UNSP PRT OF R LOW LEG W UNSP SEVERITY; L97.929 - NON-PRS CHRONIC ULC UNSP PRT OF L LOW LEG W UNSP SEVERITY (3) Ulcer of right ankle Code(s): L97.319 - NON-PRESSURE CHRONIC ULCER OF RIGHT ANKLE WITH UNSP SEVERITY (4) Osteomyelitis Code(s): M86.9 - OSTEOMYELITIS, UNSPECIFIED Qualifiers: Osteomyelitis type: other Osteomyelitis location: other site Qualified Code(s): M86.8X8 - Other osteomyelitis, other site (5) Ankle dislocation Code(s): S93.06XA - DISLOCATION OF UNSPECIFIED ANKLE JOINT, INITIAL ENCOUNTER (6) Ulcer of right heel Code(s): L97.419 - NON-PRS CHR ULCER OF RIGHT HEEL AND MIDFOOT W UNSP SEVERT Assessment/Plan Cont IV Vanco- to f/u with ID ID consult and f/u appreciated; pt was seen this AM with Dr. Edwards. Podiatry consult appreciated, no intervention. Ortho Consult appreciated, no intervantion. Case was d/w pt's nurse. AM labs
--- NOTE | 2017-11-16 11:30 | PN ---
Progress Note, Physician History of Present Illness: Awake, alert. C/O bilateral LE pain with movement Low grade temp overnight BC prelim no growth WBC WNL - Current Medication List Current Medications: Active Medications Acetaminophen (Tylenol -) 650 mg PO TID PRN PRN Reason: PAIN Last Admin: 11/15/17 21:40 Dose: 650 mg Albuterol/Ipratropium (Duoneb -) 1 amp NEB Q6H PRN PRN Reason: Dyspnea Amlodipine Besylate (Norvasc -) 2.5 mg PO DAILY [facility] Last Admin: 11/16/17 10:31 Dose: Not Given Cholecalciferol (Vitamin D3 -) 1,000 unit PO DAILY [facility] Last Admin: 11/16/17 10:30 Dose: 1,000 unit Cyanocobalamin (Vitamin B12 -) 1,000 mcg PO DAILY [facility] Last Admin: 11/16/17 10:30 Dose: 1,000 mcg Docusate Sodium (Colace Liquid -) 300 mg PO HS [facility] Last Admin: 11/15/17 21:39 Dose: 300 mg Gabapentin (Neurontin -) 400 mg PO BID [facility] Last Admin: 11/16/17 10:29 Dose: 400 mg Heparin Sodium (Porcine) (Heparin -) 5,000 unit SQ BID [facility] Last Admin: 11/16/17 10:30 Dose: 5,000 unit Hydromorphone HCl (Dilaudid -) 6 mg PO Q3H [facility] Last Admin: 11/16/17 08:42 Dose: 6 mg Vancomycin HCl 1,000 mg/ (Dextrose) 250 mls @ 250 mls/hr IVPB DAILY@1700 [facility] Last Admin: 11/15/17 16:42 Dose: 250 mls/hr Multivitamins/Minerals/Vitamin C (Tab-A-Vit -) 1 tab PO DAILY [facility] Last Admin: 11/16/17 10:30 Dose: 1 tab Ondansetron HCl (Zofran -) 4 mg PO TID PRN PRN Reason: NAUSEA Ranitidine HCl (Zantac -) 150 mg PO DAILY [facility] Last Admin: 11/16/17 10:30 Dose: 150 mg Senna (Senna -) 1 tab PO HS [facility] Last Admin: 11/15/17 21:39 Dose: 1 tab - Objective Vital Signs: Vital Signs Temperature 99.3 F 11/16/17 09:00 Pulse Rate 89 11/16/17 09:00 Respiratory Rate 17 11/16/17 09:00 Blood Pressure 99/62 11/16/17 09:00 O2 Sat by Pulse Oximetry (%) 95 11/15/17 20:06 Constitutional: Yes: No Distress, Thin Eyes: Yes: Conjunctiva Clear Cardiovascular: Yes: Regular Rate and Rhythm, S1, S2 Respiratory: Yes: Diminished Gastrointestinal: Yes: Normal Bowel Sounds, Soft. No: Tenderness Extremities: Yes: Other (decreased erythema/warmth LE bilaterally. R foot remains swollen/ red. + bilateral LE ulcers) Labs: CBC, BMP 11/16/17 06:00 11/16/17 06:00 Assessment/Plan Fever ? skin souce Cellulitis R foot/ non-healing ulcer L leg ulcer/ cellulitis Hx MRSA Repeat BC pending Continue vancomycin Local wound care
[2017-11-16] MEDS ORDERED: PT OWN MED DRAWER 7, Y5N ONE (16:56)
[2017-11-16] MEDS: VANCOMYCIN 1,000 MG in DEXTROSE 5%-WATER - 250 ML IVPB SCH (16:58)
[2017-11-16] MEDS: SENNOSIDES 8.6MG TABLET (FP) PO SCH (21:23)
[2017-11-16] MEDS: DOCUSATE NA 100 MG/10 ML UNIT-DOSE CUPS PO SCH (21:23)
[2017-11-17] MEDS: HYDROmorphone HCL 2 MG TABLET PO SCH ×8 (00:24→22:00)
[2017-11-17 07:39] LABS: HEMATOCRIT 32.7 % (32.4-45.2); HEMOGLOBIN 11.1 GM/dL (10.7-15.3); MCH 33.6 pg (25.7-33.7); MEAN CELL VOLUME 98.7 fl (80-96); MEAN PLT VOLUME 8.2 fl (7.5-11.1); PLATELET COUNT 313 K/MM3 (134-434); RBC 3.31 M/mm3 (3.60-5.2); RDW 13.3 % (11.6-15.6); WHITE BLOOD COUNT 9.2 K/mm3 (4.0-10.0)
[2017-11-17 08:21] LABS: ANION GAP 11 (8-16); BLOOD UREA NITROGEN 10 mg/dL (7-18); CALCIUM 8.4 mg/dL (8.5-10.1); CHLORIDE 93 mmol/L (98-107); CO2 29 mmol/L (21-32); GLUCOSE,RANDOM 94 mg/dL (74-106); SODIUM 133 mmol/L (136-145)
[2017-11-17 08:29] LABS: ALK PHOS 132 U/L (45-117); BILIRUBIN,TOTAL 0.3 mg/dL (0.2-1.0); CREATININE 0.4 mg/dL (0.55-1.02); SGOT/AST 13 U/L (15-37); SGPT/ALT 9 U/L (12-78); TOT PROT 5.6 g/dl (6.4-8.2)
--- NOTE | 2017-11-17 09:34 | PN ---
Progress Note, Physician History of Present Illness: Pt's right ankle pain is controlled by medication. Pt w/o CP, palpitations, abd pain. No BM yet this AM; pt agrees with Miralax today if o BM. - Current Medication List Current Medications: Active Medications Acetaminophen (Tylenol -) 650 mg PO TID PRN PRN Reason: PAIN Last Admin: 11/15/17 21:40 Dose: 650 mg Albuterol/Ipratropium (Duoneb -) 1 amp NEB Q6H PRN PRN Reason: Dyspnea Amlodipine Besylate (Norvasc -) 2.5 mg PO DAILY [facility] Last Admin: 11/16/17 10:31 Dose: Not Given Cholecalciferol (Vitamin D3 -) 1,000 unit PO DAILY [facility] Last Admin: 11/16/17 10:30 Dose: 1,000 unit Cyanocobalamin (Vitamin B12 -) 1,000 mcg PO DAILY [facility] Last Admin: 11/16/17 10:30 Dose: 1,000 mcg Docusate Sodium (Colace Liquid -) 300 mg PO [facility] Last Admin: 11/16/17 21:23 Dose: 300 mg Gabapentin (Neurontin -) 400 mg PO BID [facility] Last Admin: 11/16/17 21:23 Dose: 400 mg Heparin Sodium (Porcine) (Heparin -) 5,000 unit SQ BID [facility] Last Admin: 11/16/17 21:24 Dose: 5,000 unit Hydromorphone HCl (Dilaudid -) 6 mg PO Q3H [facility] Last Admin: 11/17/17 08:40 Dose: 6 mg Vancomycin HCl 1,000 mg/ (Dextrose) 250 mls @ 250 mls/hr IVPB DAILY@1700 [facility] Last Admin: 11/16/17 16:58 Dose: 250 mls/hr Multivitamins/Minerals/Vitamin C (Tab-A-Vit -) 1 tab PO DAILY [facility] Last Admin: 11/16/17 10:30 Dose: 1 tab Ondansetron HCl (Zofran -) 4 mg PO TID PRN PRN Reason: NAUSEA Ranitidine HCl (Zantac -) 150 mg PO DAILY [facility] Last Admin: 11/16/17 10:30 Dose: 150 mg Senna (Senna -) 2 tab PO [facility] - Objective Vital Signs: Vital Signs Temperature 99.6 F 11/17/17 06:00 Pulse Rate 82 11/17/17 06:00 Respiratory Rate 18 11/17/17 06:00 Blood Pressure 104/59 11/17/17 06:00 O2 Sat by Pulse Oximetry (%) 95 11/16/17 21:39 Constitutional: Yes: No Distress, Calm Cardiovascular: Yes: Regular Rate and Rhythm, S1, S2 Respiratory: Yes: Regular, CTA Bilaterally. No: Rales Gastrointestinal: Yes: Normal Bowel Sounds, Soft. No: Tenderness Neurological: Yes: Alert, Oriented Labs: CBC, BMP 11/17/17 06:00 11/17/17 06:00 Problem List - Problems (1) Cellulitis Code(s): L03.90 - CELLULITIS, UNSPECIFIED Qualifiers: Site of cellulitis: extremity Site of cellulitis of extremity: lower extremity Laterality: right Qualified Code(s): L03.115 - Cellulitis of right lower limb (2) Bilateral leg ulcer Code(s): L97.919 - NON-PRS CHRONIC ULC UNSP PRT OF R LOW LEG W UNSP SEVERITY; L97.929 - NON-PRS CHRONIC ULC UNSP PRT OF L LOW LEG W UNSP SEVERITY (3) Ulcer of right ankle Code(s): L97.319 - NON-PRESSURE CHRONIC ULCER OF RIGHT ANKLE WITH UNSP SEVERITY (4) Osteomyelitis Code(s): M86.9 - OSTEOMYELITIS, UNSPECIFIED Qualifiers: Osteomyelitis type: other Osteomyelitis location: other site Qualified Code(s): M86.8X8 - Other osteomyelitis, other site (5) Ankle dislocation Code(s): S93.06XA - DISLOCATION OF UNSPECIFIED ANKLE JOINT, INITIAL ENCOUNTER (6) Ulcer of right heel Code(s): L97.419 - NON-PRS CHR ULCER OF RIGHT HEEL AND MIDFOOT W UNSP SEVERT Assessment/Plan Cont IV Vanco- to f/u with ID ID consult and f/u appreciated. Podiatry consult appreciated, no intervention. Ortho Consult appreciated, no intervantion. Case was d/w pt's nurse. AM labs
[2017-11-17] MEDS: amLODIPine BESYLATE 2.5 MG TABLET (FP) PO SCH (10:00)
[2017-11-17] MEDS: MULTIVITAMINS (DAILY MVI) TABLET (FP) PO SCH (10:00)
[2017-11-17] MEDS: RANITIDINE HCL 150 MG TABLET (FP) PO SCH (10:00)
[2017-11-17] MEDS: CYANOCOBALAMIN 1,000 MCG TABLET (FP) PO SCH (10:00)
[2017-11-17] MEDS: CHOLECALCIFEROL (VITAMIN D3) 1,000 UNIT TABLET (FP) PO SCH (10:00)
[2017-11-17] MEDS: HEPARIN NA (PORCINE) 5,000 UNITS/ML 1ML VIAL SQ SCH ×2 (10:00→22:00)
[2017-11-17] MEDS: GABAPENTIN 400 MG CAPSULE (FP) PO SCH ×2 (10:00→22:10)
--- NOTE | 2017-11-17 14:05 | PN ---
Progress Note, Physician History of Present Illness: Awake, alert. C/O bilateral LE pain with movement BC no growth WBC WNL - Current Medication List Current Medications: Active Medications Acetaminophen (Tylenol -) 650 mg PO TID PRN PRN Reason: PAIN Last Admin: 11/15/17 21:40 Dose: 650 mg Albuterol/Ipratropium (Duoneb -) 1 amp NEB Q6H PRN PRN Reason: Dyspnea Amlodipine Besylate (Norvasc -) 2.5 mg PO DAILY [facility] Last Admin: 11/17/17 10:00 Dose: Not Given Cholecalciferol (Vitamin D3 -) 1,000 unit PO DAILY [facility] Last Admin: 11/17/17 10:00 Dose: 1,000 unit Cyanocobalamin (Vitamin B12 -) 1,000 mcg PO DAILY [facility] Last Admin: 11/17/17 10:00 Dose: 1,000 mcg Docusate Sodium (Colace Liquid -) 300 mg PO [facility] Last Admin: 11/16/17 21:23 Dose: 300 mg Gabapentin (Neurontin -) 400 mg PO BID [facility] Last Admin: 11/17/17 10:00 Dose: 400 mg Heparin Sodium (Porcine) (Heparin -) 5,000 unit SQ BID [facility] Last Admin: 11/17/17 10:00 Dose: 5,000 unit Hydromorphone HCl (Dilaudid -) 6 mg PO Q3H [facility] Last Admin: 11/17/17 11:33 Dose: 6 mg Vancomycin HCl 1,000 mg/ (Dextrose) 250 mls @ 250 mls/hr IVPB DAILY@1700 [facility] Last Admin: 11/16/17 16:58 Dose: 250 mls/hr Multivitamins/Minerals/Vitamin C (Tab-A-Vit -) 1 tab PO DAILY [facility] Last Admin: 11/17/17 10:00 Dose: 1 tab Ondansetron HCl (Zofran -) 4 mg PO TID PRN PRN Reason: NAUSEA Ranitidine HCl (Zantac -) 150 mg PO DAILY [facility] Last Admin: 11/17/17 10:00 Dose: 150 mg Senna (Senna -) 2 tab PO [facility] - Objective Vital Signs: Vital Signs Temperature 98.3 F 11/17/17 09:00 Pulse Rate 87 11/17/17 09:00 Respiratory Rate 18 11/17/17 09:00 Blood Pressure 95/48 11/17/17 09:00 O2 Sat by Pulse Oximetry (%) 96 11/17/17 09:00 Constitutional: Yes: No Distress Eyes: Yes: Conjunctiva Clear Cardiovascular: Yes: Regular Rate and Rhythm, S1, S2 Respiratory: Yes: CTA Bilaterally Gastrointestinal: Yes: Normal Bowel Sounds, Soft. No: Tenderness Extremities: Yes: Other (erythema R foot, L LE nearly all resolved) Labs: CBC, BMP 11/17/17 06:00 11/17/17 06:00 Assessment/Plan Fever resolved Cellulitis R foot/ non-healing ulcer- improved L leg ulcer/ cellulitis - improved Hx MRSA Continue vancomycin additional 24hr Local wound care
[2017-11-17] MEDS: VANCOMYCIN 1,000 MG in DEXTROSE 5%-WATER - 250 ML IVPB SCH (17:04)
[2017-11-17] MEDS ORDERED: PT OWN MED DRAWER 7, Y5N ONE (20:37)
[2017-11-17] MEDS: ACETAMINOPHEN 325 MG TABLET (FP) PO PRN (21:59)
[2017-11-17] MEDS: DOCUSATE NA 100 MG/10 ML UNIT-DOSE CUPS PO SCH (21:59)
[2017-11-17] MEDS: SENNOSIDES 8.6MG TABLET (FP) PO SCH (21:59)
[2017-11-18] MEDS: HYDROmorphone HCL 2 MG TABLET PO SCH ×8 (01:00→22:00)
[2017-11-18 07:48] LABS: HEMATOCRIT 35.3 % (32.4-45.2); HEMOGLOBIN 11.8 GM/dL (10.7-15.3); MCH 33.1 pg (25.7-33.7); MCHC 33.5 g/dl (32.0-36.0); MEAN CELL VOLUME 98.8 fl (80-96); MEAN PLT VOLUME 8.1 fl (7.5-11.1); PLATELET COUNT 321 K/MM3 (134-434); RBC 3.58 M/mm3 (3.60-5.2); RDW 13.3 % (11.6-15.6); WHITE BLOOD COUNT 8.5 K/mm3 (4.0-10.0)
[2017-11-18 08:23] LABS: CHLORIDE 96 mmol/L (98-107); POTASSIUM 4.8 mmol/L (3.5-5.1); SODIUM 135 mmol/L (136-145)
[2017-11-18 08:28] LABS: ANION GAP 8 (8-16); BLOOD UREA NITROGEN 10 mg/dL (7-18); CALCIUM 9.1 mg/dL (8.5-10.1); CO2 31 mmol/L (21-32); CREATININE 0.4 mg/dL (0.55-1.02); GLUCOSE,RANDOM 94 mg/dL (74-106)
[2017-11-18] MEDS: RANITIDINE HCL 150 MG TABLET (FP) PO SCH (09:28)
[2017-11-18] MEDS: CYANOCOBALAMIN 1,000 MCG TABLET (FP) PO SCH (09:28)
[2017-11-18] MEDS: MULTIVITAMINS (DAILY MVI) TABLET (FP) PO SCH (09:28)
[2017-11-18] MEDS: CHOLECALCIFEROL (VITAMIN D3) 1,000 UNIT TABLET (FP) PO SCH (09:28)
[2017-11-18] MEDS: GABAPENTIN 400 MG CAPSULE (FP) PO SCH ×2 (09:28→22:07)
[2017-11-18] MEDS: HEPARIN NA (PORCINE) 5,000 UNITS/ML 1ML VIAL SQ SCH ×2 (09:29→22:08)
[2017-11-18] MEDS: amLODIPine BESYLATE 2.5 MG TABLET (FP) PO SCH (09:32)
--- NOTE | 2017-11-18 10:27 | PN ---
Progress Note, Physician History of Present Illness: Pt w/o fever, chills, CP, palpitations, abd pain. Pt had BM yesterday, no Miralax needed. - Current Medication List Current Medications: Active Medications Acetaminophen (Tylenol -) 650 mg PO TID PRN PRN Reason: PAIN Last Admin: 11/17/17 21:59 Dose: 650 mg Albuterol/Ipratropium (Duoneb -) 1 amp NEB Q6H PRN PRN Reason: Dyspnea Amlodipine Besylate (Norvasc -) 2.5 mg PO DAILY [facility] Last Admin: 11/18/17 09:32 Dose: 2.5 mg Cholecalciferol (Vitamin D3 -) 1,000 unit PO DAILY [facility] Last Admin: 11/18/17 09:28 Dose: 1,000 unit Cyanocobalamin (Vitamin B12 -) 1,000 mcg PO DAILY [facility] Last Admin: 11/18/17 09:28 Dose: 1,000 mcg Docusate Sodium (Colace Liquid -) 300 mg PO HS [facility] Last Admin: 11/17/17 21:59 Dose: 300 mg Gabapentin (Neurontin -) 400 mg PO BID [facility] Last Admin: 11/18/17 09:28 Dose: 400 mg Heparin Sodium (Porcine) (Heparin -) 5,000 unit SQ BID [facility] Last Admin: 11/18/17 09:29 Dose: 5,000 unit Hydromorphone HCl (Dilaudid -) 6 mg PO Q3H [facility] Last Admin: 11/18/17 09:28 Dose: 6 mg Vancomycin HCl 1,000 mg/ (Dextrose) 250 mls @ 250 mls/hr IVPB DAILY@1700 [facility] Last Admin: 11/17/17 17:04 Dose: 250 mls/hr Multivitamins/Minerals/Vitamin C (Tab-A-Vit -) 1 tab PO DAILY [facility] Last Admin: 11/18/17 09:28 Dose: 1 tab Ondansetron HCl (Zofran -) 4 mg PO TID PRN PRN Reason: NAUSEA Ranitidine HCl (Zantac -) 150 mg PO DAILY [facility] Last Admin: 11/18/17 09:28 Dose: 150 mg Senna (Senna -) 2 tab PO HS [facility] Last Admin: 11/17/17 21:59 Dose: 2 tab - Objective Vital Signs: Vital Signs Temperature 97.8 F 11/18/17 05:57 Pulse Rate 62 11/18/17 05:57 Respiratory Rate 20 11/18/17 05:57 Blood Pressure 144/74 11/18/17 05:57 O2 Sat by Pulse Oximetry (%) 94 L 11/17/17 21:00 Cardiovascular: Yes: Regular Rate and Rhythm, S1, S2 Respiratory: Yes: Regular, CTA Bilaterally. No: Rales Gastrointestinal: Yes: Normal Bowel Sounds, Soft. No: Tenderness Edema: RLE: 1+ Neurological: Yes: Alert, Oriented Labs: CBC, BMP 11/18/17 06:20 11/18/17 06:20 Problem List - Problems (1) Cellulitis Code(s): L03.90 - CELLULITIS, UNSPECIFIED Qualifiers: Site of cellulitis: extremity Site of cellulitis of extremity: lower extremity Laterality: right Qualified Code(s): L03.115 - Cellulitis of right lower limb (2) Bilateral leg ulcer Code(s): L97.919 - NON-PRS CHRONIC ULC UNSP PRT OF R LOW LEG W UNSP SEVERITY; L97.929 - NON-PRS CHRONIC ULC UNSP PRT OF L LOW LEG W UNSP SEVERITY (3) Ulcer of right ankle Code(s): L97.319 - NON-PRESSURE CHRONIC ULCER OF RIGHT ANKLE WITH UNSP SEVERITY (4) Osteomyelitis Code(s): M86.9 - OSTEOMYELITIS, UNSPECIFIED Qualifiers: Osteomyelitis type: other Osteomyelitis location: other site Qualified Code(s): M86.8X8 - Other osteomyelitis, other site (5) Ankle dislocation Code(s): S93.06XA - DISLOCATION OF UNSPECIFIED ANKLE JOINT, INITIAL ENCOUNTER (6) Ulcer of right heel Code(s): L97.419 - NON-PRS CHR ULCER OF RIGHT HEEL AND MIDFOOT W UNSP SEVERT Assessment/Plan Cont IV Vanco- to f/u with ID ID consult and f/u appreciated. Podiatry consult appreciated, no intervention. Ortho Consult appreciated, no intervantion. Vascular surgery consult. Case was d/w pt's nurse. AM labs
--- NOTE | 2017-11-18 13:59 | PN ---
Progress Note, Physician History of Present Illness: Awake, alert. No c/o foot pain at rest BC no growth WBC WNL - Current Medication List Current Medications: Active Medications Acetaminophen (Tylenol -) 650 mg PO TID PRN PRN Reason: PAIN Last Admin: 11/17/17 21:59 Dose: 650 mg Albuterol/Ipratropium (Duoneb -) 1 amp NEB Q6H PRN PRN Reason: Dyspnea Amlodipine Besylate (Norvasc -) 2.5 mg PO DAILY [facility] Last Admin: 11/18/17 09:32 Dose: 2.5 mg Cholecalciferol (Vitamin D3 -) 1,000 unit PO DAILY [facility] Last Admin: 11/18/17 09:28 Dose: 1,000 unit Cyanocobalamin (Vitamin B12 -) 1,000 mcg PO DAILY [facility] Last Admin: 11/18/17 09:28 Dose: 1,000 mcg Docusate Sodium (Colace Liquid -) 300 mg PO HS [facility] Last Admin: 11/17/17 21:59 Dose: 300 mg Gabapentin (Neurontin -) 400 mg PO BID [facility] Last Admin: 11/18/17 09:28 Dose: 400 mg Heparin Sodium (Porcine) (Heparin -) 5,000 unit SQ BID [facility] Last Admin: 11/18/17 09:29 Dose: 5,000 unit Hydromorphone HCl (Dilaudid -) 6 mg PO Q3H [facility] Last Admin: 11/18/17 12:30 Dose: 6 mg Vancomycin HCl 1,000 mg/ (Dextrose) 250 mls @ 250 mls/hr IVPB DAILY@1700 [facility] Last Admin: 11/17/17 17:04 Dose: 250 mls/hr Multivitamins/Minerals/Vitamin C (Tab-A-Vit -) 1 tab PO DAILY [facility] Last Admin: 11/18/17 09:28 Dose: 1 tab Ondansetron HCl (Zofran -) 4 mg PO TID PRN PRN Reason: NAUSEA Ranitidine HCl (Zantac -) 150 mg PO DAILY [facility] Last Admin: 11/18/17 09:28 Dose: 150 mg Senna (Senna -) 2 tab PO HS [facility] Last Admin: 11/17/17 21:59 Dose: 2 tab - Objective Vital Signs: Vital Signs Temperature 97.8 F 11/18/17 05:57 Pulse Rate 62 11/18/17 05:57 Respiratory Rate 20 11/18/17 05:57 Blood Pressure 144/74 11/18/17 05:57 O2 Sat by Pulse Oximetry (%) 94 L 11/17/17 21:00 Constitutional: Yes: Cachectic Cardiovascular: Yes: Regular Rate and Rhythm, S1, S2 Respiratory: Yes: CTA Bilaterally Gastrointestinal: Yes: Normal Bowel Sounds, Soft. No: Tenderness Extremities: Yes: Other (erythema LE resolved + ulcers) Labs: CBC, BMP 11/18/17 06:20 11/18/17 06:20 Assessment/Plan Fever resolved Cellulitis R foot/ non-healing ulcer- improved L leg ulcer/ cellulitis - improved Hx MRSA D/C vancomycin Doxycyline 100mg po bid [facility] antibiotic suppressive therapy
[2017-11-18] MEDS: DOXYCYCLINE HYCLATE 100 MG CAPSULE PO SCH (17:10)
--- NOTE | 2017-11-18 17:42 | PN ---
Progress Note (short form) - Note Progress Note: VAscular Surgery pt seen and examined. Right ankle looks a lot better than last week. Cellulitis has resovled. Spoke to pt about all options. I spoke to her about amputation -- but we both agree that it is not the best option. Sister would like conservative therapy -- in the form of parts counterman antiobiotics. She understands it is suppressive therapy, due to her bone exposed in her right ankle. Rec DC to [facility] on parts counterman doxycycline if that is ok with ID. Kaleb to all wounds. Palmer Tracy DO
[2017-11-18] MEDS: COLLAGENASE CLOSTRIDIUM HIST. 30 GRAMS TUBE TP SCH (18:02)
[2017-11-18] MEDS ORDERED: PT OWN MED DRAWER 7, Y5N ONE (22:05)
[2017-11-18] MEDS: DOCUSATE NA 100 MG/10 ML UNIT-DOSE CUPS PO SCH (22:14)
[2017-11-18] MEDS: SENNOSIDES 8.6MG TABLET (FP) PO SCH (22:14)
[2017-11-19] MEDS: HYDROmorphone HCL 2 MG TABLET PO SCH ×6 (01:22→15:32)
[2017-11-19] MEDS: COLLAGENASE CLOSTRIDIUM HIST. 30 GRAMS TUBE TP SCH (11:27)
[2017-11-19] MEDS: RANITIDINE HCL 150 MG TABLET (FP) PO SCH (11:28)
[2017-11-19] MEDS: CHOLECALCIFEROL (VITAMIN D3) 1,000 UNIT TABLET (FP) PO SCH (11:28)
[2017-11-19] MEDS: HEPARIN NA (PORCINE) 5,000 UNITS/ML 1ML VIAL SQ SCH (11:28)
[2017-11-19] MEDS: MULTIVITAMINS (DAILY MVI) TABLET (FP) PO SCH (11:28)
[2017-11-19] MEDS: GABAPENTIN 400 MG CAPSULE (FP) PO SCH (11:28)
[2017-11-19] MEDS: DOXYCYCLINE HYCLATE 100 MG CAPSULE PO SCH ×2 (11:28→17:24)
[2017-11-19] MEDS: CYANOCOBALAMIN 1,000 MCG TABLET (FP) PO SCH (11:29)
[2017-11-19] MEDS: amLODIPine BESYLATE 2.5 MG TABLET (FP) PO SCH (11:30)
--- NOTE | 2017-11-19 12:48 | DS ---
Physical Examination Vital Signs: Vital Signs Temperature 98.7 F 11/19/17 11:42 Pulse Rate 78 11/19/17 11:42 Respiratory Rate 18 11/19/17 11:42 Blood Pressure 110/58 11/19/17 11:42 O2 Sat by Pulse Oximetry (%) 95 11/18/17 21:00 Findings/Remarks: Pt w/o fever, chills, SOB, CP, abd pain, constipation, diarrhea. Constitutional: Yes: No Distress, Calm Cardiovascular: Yes: Regular Rate and Rhythm, S1, S2 Respiratory: Yes: Regular, CTA Bilaterally. No: Rales Gastrointestinal: Yes: Normal Bowel Sounds, Soft. No: Tenderness Wound/Incision: Yes: Other (clean dressing) Neurological: Yes: Alert, Oriented Labs: CBC, BMP 11/18/17 06:20 11/18/17 06:20 Discharge Summary Reason For Visit: OSTEOMYELITIS Current Active Problems Cellulitis (Acute) Ankle dislocation Osteomyelitis (Acute) Ulcer of right heel (Acute) Procedures: Principal: Foot/ Tibia/ Fibula XR Hospital Course: Pt with bilateral leg ulcer was sent from [facility] ER for R/O OM; pt was noticed to have fever (101.3). Pt had BCX and was started on IV Vanco. Pt was seen in consult by ID (Dr. Edwards), Podiatry (Dr. Robert), Ortho (Dr. Beck, covering Dr. Easley), Vasc Sx (Dr. Tracy). Pt's fever and cellulitis resolved. 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 Pt to [facility]'ed to [facility] under my care. Condition: Improved - Instructions Diet, Activity, Other Instructions: Resume diet. Make appointment with Dr. Tracy this coming Tuesday. Referrals: Tiburcio Zaragoza MD [Primary Care Provider] - Disposition: [facility] - Home Medications Comprehensive Discharge Medication List: Ambulatory Orders
[2017-11-19 13:37] VITALS: BP 109/64; PULSE 85; TEMP 98.1
== END 2017-11-19 18:00 | DRG 602 ==
LOC: JER 11:06 → JERBED 12:13 → J7W 15:10
PROVIDERS: ADMIT Internal Medicine; ATTEND Internal Medicine
DX: L03.115 Cellulitis of right lower limb (principal); L89.894 Pressure ulcer of other site, stage 4; L97.829 Non-pressure chronic ulcer of other part of left lower leg with unspecified severity; L97.819 Non-pressure chronic ulcer of other part of right lower leg with unspecified severity; R64 Cachexia
CPT/HCPCS: 36415; 71045-TC-FY; 73590-TC-LT-FY; 73590-TC-RT-FY; 73630-TC-LT; 73630-TC-RT-FY; 80048; 80053; 85025; 85027; 85651; 86140; 87040; 93005; 93010; 99284-25; G0463-25; G0480; J1644